=== PATIENT | female | born 1945 | race Caucasian/White ===

== ENCOUNTER 2019-10-07 23:45 | Inpatient (IN) | payer MEDICARE, BC, OTHER ==
[2019-10-08] MEDS ORDERED: Benzonatate 100 MG CAP ONE (01:05)
[2019-10-08] MEDS ORDERED: Acetaminophen 500 MG TAB ONE (02:39)
[2019-10-08] MEDS ORDERED: Azithromycin 500 MG in Sodium Chloride 0.9% 250 ML 250 ML IVPB SCH (04:15)
[2019-10-08 04:48] VITALS: BMI 30.1
[2019-10-08] MEDS ORDERED: Ondansetron PF 4 MG/2 ML Vial IVP PRN (05:44)
[2019-10-08] MEDS ORDERED: Promethazine HCl 12.5 MG in Sodium Chloride 0.9% 50 ML IVPB PRN (05:44)
[2019-10-08] MEDS ORDERED: hydrALAZINE 20 MG/ML VIAL SLOW IVP PRN (05:44)
[2019-10-08] MEDS ORDERED: HYDROcodone/Acetaminophen 5/325 mg Tablet PO PRN (05:44)
[2019-10-08] MEDS ORDERED: cloNIDine 0.1 MG TAB PO PRN (05:44)
[2019-10-08] MEDS ORDERED: Guaifenesin DM 100-10/5 ML UDCUP PO PRN (05:44)
[2019-10-08] MEDS ORDERED: Morphine 2 MG/ML VIAL SLOW IVP PRN (05:44)
[2019-10-08] MEDS ORDERED: Labetalol HCl 100 MG/20 ML VIAL SLOW IVP PRN (05:44)
[2019-10-08] MEDS ORDERED: Bisacodyl 10 MG SUPP PR PRN (05:45)
[2019-10-08] MEDS ORDERED: Bisacodyl 5 MG TAB PO PRN (05:45)
--- NOTE | 2019-10-08 05:55 | PDOC.HHP ---
Hospitalist HPI - History of Present Illness Shortness of breath History of Present Illness: Patient is a 74 year old female with PMH HTN, DM2, HLD, hearing loss who presents to ED from [place] for shortness of breath in setting of COVID 19 infection. Patient was diagnosed with COVID 19 on saturday, her friend who was an RN came to check on her, pulse oximiter was applied and O2 was low (79%) and patient was brought to ED, here she was noted to desaturate with minimal activity, even with purewich application she desaturated to 84% on high flow O2 , she improved to 93% when on O2 40% at 45 LPM however. Max temperature 102.7. Patient reports shortness of breath and a cough, had been taking azithromycin and dexamethasone at home. She had a CXR in [place] with infiltrate. No history of pulmonary disease. Denies chest pain. Patient to be admitted for further workup and care. Hospitalist ROS - Review of Systems Constitutional: reports: fever, chills, weakness, malaise ENT: denies: ear pain, ear discharge, nose pain, nose discharge, nose congestion , mouth pain, mouth swelling, throat pain, throat swelling, other Respiratory: reports: cough, shortness of breath. denies: dry, hemoptysis, SOB with excertion, pleuritic pain, sputum, wheezing, other Cardiovascular: denies: chest pain, palpitations, orthopnea, paroxysmal noc. dyspnea, edema, light headedness, other Gastrointestinal: denies: nausea, vomiting, abdominal pain, diarrhea, constipation, melena, hematochezia, other Genitourinary: denies: dysuria, frequency, incontinence, hematuria, retention, other Musculoskeletal: denies: neck pain, shoulder pain, arm pain, back pain, hand pain, leg pain, foot pain, other Skin: denies: rash, lesions, cliff, bruising, other Neurological: denies: weakness, numbness, incoordination, change in speech, confusion, seizures, other All other systems reviewed; all pertinent +/- noted in HPI/Subj - Medication Medications: amlodipine-benazepril Jacki Oct 08, 2019 01:14 NORA Bro Alicia capsule : Strength - 5 mg-40 mg : ORAL Patient Dose: once a day. budesonide inhalation SatOct 08, 2019 01:14 NORA Bro Alicia suspension for nebulization : Strength - 0.5 mg/2 mL : INHALATION Patient Dose: 2 times a day. cholecalciferol (vitamin D3) oral SatOct 08, 2019 01:15 NORA Bro Alicia capsule : Strength - 5,000 unit : ORAL Patient Dose: once a day. dexamethasone [facility] Oct 08, 2019 01:17 NORA Bro Alicia tablet : Strength - 4 mg : ORAL Patient Dose: Unknown.unknown schedule. hydroxychloroquine SatOct 08, 2019 01:18 NORA Bro Alicia tablet : Strength - 200 mg : ORAL Patient Dose: Unknown.unknown schedule. latanoprost SatOct 08, 2019 01:19 NORA Bro Alicia drops : Strength - 0.005 % : OPHTHALMIC (EYE) Patient Dose: once a day. lisinopril [facility] Oct 08, 2019 01:21 NORA Bro Alicia tablet : Strength - 40 mg : ORAL Patient Dose: once a day. metFORMIN [facility] Oct 08, 2019 01:21 NORA Bro Alicia tablet : Strength - 500 mg : ORAL Patient Dose: 2 times a day. metoprolol succinate [facility] Oct 08, 2019 01:22 NORA Bro Alicia tablet extended release 24 hr : Strength - 200 mg : ORAL Patient Dose: once a day. Centrum Silver tablet SatOct 08, 2019 01:24 NORA Bro Alicia tablet : ORAL Patient Dose: Unknown. Chelated Zinc [facility] Oct 08, 2019 01:24 NORA Bro Alicia tablet : Strength - 50 mg : ORAL Patient Dose: Unknown. venlafaxine Jacki Oct 08, 2019 01:25 NORA Bro Alicia tablet : Strength - 37.5 mg : ORAL Patient Dose: 2 times a day. Hospitalist History - Past Medical History Other Medical History: HTN, DM2, HLD - Past Surgical History Past Surgical History: reports: no pertinent history - Family History Family History: reports: no pertinent history - Social History Alcohol: reports: None Drugs: reports: none - Exam General Appearance: NAD, awake alert Eye: PERRL, anicteric sclera ENT: normocephalic atraumatic, no oropharyngeal lesions, moist mucosa Neck: supple, symmetric, no JVD, no thyromegaly, no lymphadenopathy, no carotid bruit Heart: RRR, no murmur, no gallops, no rubs, normal peripheral pulses Respiratory: CTAB, no wheezes, no rales, no ronchi, normal chest expansion, no tachypnea, normal percussion Gastrointestinal: soft, non-tender, non-distended, normal bowel sounds, no palpable masses, no hepatomegaly, no splenomegaly, no bruit Extremities: no cyanosis, no clubbing, no edema Skin: normal turgor, no lesions, no rashes Neurological: cranial nerve grossly intact, normal sensation to touch, no weakness, no focal deficits, no new deficit Musculoskeletal: normal tone, normal strength, no muscle wasting Psychiatric: normal affect, normal behavior, A&O x 3 Hospitalist Results - Labs Additional comment: VITAL SIGNS Jacki Oct 08, 2019 03:30 NORA Barc[facility] [place] BP: 172/92 (Lying) Pulse: 93 Resp: 25 Temp: 100.4 (Oral) Pain: 8 O2 sat: 91 Time: 10/08/2019 03:30. results reviewed as available Hospitalist H&P A/P - Plan Plan: Patient is a 74 year old female with PMH HTN, DM2, HLD, hearing loss who presents to ED from [place] for shortness of breath in setting of COVID 19 infection. # hypoxia in setting of covid 19 infection - had infiltrate at outside facility on imaging, now with likely viral pneumonia secondary to covid 19 - admit to IMCU - continue high flow nasal cannula - empiric azithromycin, ceftriaxone, decadron - follow up CXR and ordered labwork - consider pulmonary consult if condition worsens further DVT/GI ppx full code
[2019-10-08] MEDS ORDERED: cefTRIAXone\\ROCEPHIN 1 GM in Sodium Chloride 0.9% 100 ML IVPB SCH (06:00)
[2019-10-08] MEDS ORDERED: Dexamethasone 10 MG/ML VIAL SLOW IVP SCH (06:00)
[2019-10-08 06:27] LABS: #Lymphocytes 1.3 thou/uL (1.20-3.40); #Monocytes 0.5 thou/uL (0.11-0.59); #Neutrophils 6.3 thou/uL (1.40-6.50); %Basophils 0.1 % (0.0-1.0); %Lymphocytes 16.3 % (21.0-51.0); %Monocytes 6.2 % (0.0-10.0); %Neutrophils 77.4 % (42.0-75.0); Hemoglobin 14.5 g/dL (12.0-16.0); Mean Corpuscular HGB CONC 31.6 g/dL (32.0-36.0); Mean Corpuscular Volume 94.8 fL (78.0-98.0); Mean Platelet Volume 6.8 fL (7.4-10.4); Platelet Count 229 thou/uL (130-400); RBC Distribution Width 12.2 % (11.5-14.5); Red Blood Cell (RBC) Count 4.82 mill/uL (4.20-5.40); White Blood Cell (WBC) Count 8.1 thou/uL (4.8-10.8)
[2019-10-08 06:44] LABS: Anion Gap 13 mmol/L (10-20); BUN (Urea Nitrogen) 13 mg/dL (9.8-20.1); Calc. Creatinine Clearance 86 mL/min (70-130); Calcium 8.6 mg/dL (7.8-10.44); Carbon Dioxide 24 mmol/L (23-31); Chloride 105 mmol/L (98-107); Estimated GFR-MDRD 81; Glucose 103 mg/dL (83-110); Potassium 4.1 mmol/L (3.5-5.1); Sodium 138 mmol/L (136-145)
--- NOTE | 2019-10-08 07:43 | RAD ---
EXAM: Single view of the chest HISTORY: Covid pneumonia with hypoxia COMPARISON: 10/07/2019 FINDINGS: Single view of the chest shows a normal sized cardiomediastinal silhouette. There is worsen ing of the subtle diffuse multifocal infiltrates in the lungs. The bones are unremarkable IMPRESSION: Multifocal infiltrates
[2019-10-08] MEDS: Famotidine 20 MG TAB PO SCH ×2 (08:55→20:19)
[2019-10-08] MEDS: Acetaminophen 325 MG TAB PO PRN (08:55)
[2019-10-08] MEDS ORDERED: Enoxaparin Sodium 40 MG/0.4 ML SYRINGE SC SCH ×2 (09:00→21:00)
[2019-10-08] MEDS ORDERED: Prevnar 13-Val Conj/PF 0.5 ML SYRINGE IM ONE (09:00)
[2019-10-08] MEDS ORDERED: Enoxaparin Sodium 30 MG/0.3 ML SYRINGE SC SCH (10:45)
--- NOTE | 2019-10-08 11:30 | CON ---
DATE OF CONSULTATION: 10/08/2019 This is 75 minutes of time, of that time, greater than 50% was spent with the patient and/or the patient's unit in the hospital. REASON FOR CONSULTATION: COVID-19 pneumonia. HISTORY OF PRESENT ILLNESS: Ms. Rojas is a 74-year-old female, who presented from the [place] [facility] with COVID-19 pneumonia. She says she has been sick for about 10 days. She began desaturating yesterday. Apparently, she also had a temperature of 102.7. She works for [employer] in [place] and has been taking azithromycin and dexamethasone at home. PAST MEDICAL HISTORY: 1. Type 2 diabetes mellitus. 2. Hyperlipidemia. 3. Hearing loss. PAST SURGICAL HISTORY: None. FAMILY MEDICAL HISTORY: Unremarkable. SOCIAL HISTORY: Nonsmoker. Does not consume alcohol. Does not use illicit drugs. ALLERGIES: NONE. MEDICATIONS: Prior to admission; 1. Metformin 500 mg b.i.d. 2. Amlodipine/benazepril 5 mg/40 mg daily. 3. Budesonide nebs b.i.d. 4. Dexamethasone 4 mg daily. 5. Hydroxychloroquine 200 mg daily. 6. Latanoprost eye drops once daily. 7. Lisinopril 40 mg daily. 8. Metoprolol extended release 200 mg once daily. 9. Centrum once daily. 10. Chelated zinc 50 mg daily. 11. Venlafaxine 37.5 mg b.i.d. REVIEW OF SYSTEMS: Remarkable for fever and shortness of breath, otherwise negative. PHYSICAL EXAMINATION: VITAL SIGNS: Temperature 99.5, has been high as 101.1; pulse 85; respirations high at 20; blood pressure 147/69; and O2 saturations in the mid 90s on 6 L nasal cannula. GENERAL: She is pleasant, alert, in no distress. HEENT: Unremarkable. NECK: No adenopathy or JVD. LUNGS: Diffuse inspiratory crackles bilaterally, best heard posteriorly. CARDIAC: S1 and S2. Regular. ABDOMEN: Soft. EXTREMITIES: No edema. LABORATORY DATA: White blood cell count 8.1, hematocrit 45.7, and platelet count 229. Glucose 103, BUN 13, creatinine 0.7, sodium 138, and potassium 4.1. IMAGING DATA: Chest x-ray shows diffuse bilateral infiltrates. ASSESSMENT: COVID-19 pneumonia with comorbid factors including hypertension, hyperlipidemia, and diabetes mellitus. Right now, her symptoms seem to be mitigated by the oxygen and dexamethasone. Likely her chronic medical problems are under control. PLAN: 1. I agree with the current treatment with the exception that I would discontinue the Rocephin and perhaps even azithromycin. I would increase her anticoagulation. Continue steroids. Add Pulmicort. Watch oxygen level closely. 2. I would restart her routine home medications with the exception of beta-vicky as many of these COVID patients develop refractory bradycardia. Job ID: [id number]
[2019-10-08] MEDS: metFORMIN 500 MG TAB PO SCH (16:12)
[2019-10-08] MEDS: Budesonide 0.5 MG/2 ML NEB INH SCH (19:01)
[2019-10-08] MEDS: Latanoprost 0.005% Ophth Soln 2.5 ml Bottle EA EYE SCH (20:46)
[2019-10-08] MEDS: Enoxaparin Sodium 60 MG/0.6 ML SYRINGE SC SCH (20:46)
[2019-10-09 03:53] LABS: #Lymphocytes 1.9 thou/uL (1.20-3.40); #Monocytes 0.6 thou/uL (0.11-0.59); #Neutrophils 7.1 thou/uL (1.40-6.50); %Basophils 0.1 % (0.0-1.0); %Eosinophils 0.2 % (0.0-10.0); %Lymphocytes 19.5 % (21.0-51.0); %Neutrophils 74.3 % (42.0-75.0); Hemoglobin 14.6 g/dL (12.0-16.0); Mean Corpuscular HGB CONC 32.8 g/dL (32.0-36.0); Mean Corpuscular Hemoglobin 30.9 pg (27.0-31.0); Mean Corpuscular Volume 94.4 fL (78.0-98.0); Mean Platelet Volume 6.7 fL (7.4-10.4); Platelet Count 246 thou/uL (130-400); RBC Distribution Width 12.2 % (11.5-14.5); Red Blood Cell (RBC) Count 4.72 mill/uL (4.20-5.40); White Blood Cell (WBC) Count 9.6 thou/uL (4.8-10.8)
[2019-10-09 04:13] LABS: Anion Gap 14 mmol/L (10-20); BUN (Urea Nitrogen) 13 mg/dL (9.8-20.1); Calc. Creatinine Clearance 94 mL/min (70-130); Calcium 8.8 mg/dL (7.8-10.44); Carbon Dioxide 25 mmol/L (23-31); Chloride 105 mmol/L (98-107); Estimated GFR-MDRD 89; Glucose 115 mg/dL (83-110); Magnesium 1.8 mg/dL (1.6-2.6); Sodium 140 mmol/L (136-145)
[2019-10-09] MEDS: Azithromycin 500 MG in Sodium Chloride 0.9% 250 ML 250 ML IVPB SCH (04:52)
[2019-10-09] MEDS: Dexamethasone 4 mg/ml Vial SLOW IVP SCH (05:27)
[2019-10-09] MEDS: Acetaminophen 325 MG TAB PO PRN ×2 (05:27→17:31)
[2019-10-09] MEDS ORDERED: Venlafaxine XR 37.5 MG CAP PO SCH (09:00)
[2019-10-09] MEDS: Enoxaparin Sodium 60 MG/0.6 ML SYRINGE SC SCH ×2 (09:09→20:25)
[2019-10-09] MEDS: Zinc Sulfate 220 MG CAP PO SCH (09:10)
[2019-10-09] MEDS: Lisinopril 20 MG TAB PO SCH (09:10)
[2019-10-09] MEDS: Famotidine 20 MG TAB PO SCH ×2 (09:10→20:25)
[2019-10-09] MEDS: Multivitamin W/ Minerals 1 TAB PO SCH (09:10)
[2019-10-09] MEDS: metFORMIN 500 MG TAB PO SCH ×2 (09:10→17:31)
[2019-10-09] MEDS: Amlodipine 5 mg/Benazepril 20 mg CAP PO SCH (09:11)
[2019-10-09] MEDS: Budesonide 0.5 MG/2 ML NEB INH SCH ×2 (10:17→19:30)
--- NOTE | 2019-10-09 10:27 | PRG ---
DATE OF SERVICE: 10/09/2019 SUBJECTIVE: The patient remains in the IMCU on high-flow nasal cannula. OBJECTIVE: VITAL SIGNS: Temperature 100.1, pulse 86, blood pressure 137/78, O2 saturation 94%. 24-hour intake 1500, output 1101. HEENT: Unremarkable. NECK: No adenopathy or JVD. LUNGS: Inspiratory crackles. CARDIAC: S1 and S2. Regular. ABDOMEN: Soft. EXTREMITIES: No edema. LABORATORY DATA: White blood cell count 9.6, hematocrit 44, platelet count 246. Sodium 140, potassium 4, BUN 13, creatinine 0.6, and glucose 115. ASSESSMENT: COVID-19 pneumonia with acute hypoxic respiratory failure. PLAN: Continue anticoagulation. Wean oxygen as tolerated. Continue steroids. Job ID: [id number]
[2019-10-09] MEDS: ALPRAZolam 0.25 MG TAB PO PRN (14:25)
--- NOTE | 2019-10-09 20:13 | PDOC.HOSPP ---
- Subjective Encounter Date: 10/09/19 Encounter Time: 20:09 Subjective: Pt seen for followup re; acute hypoxic respiratory failure. SOBOE+, anxiety+ - Objective Vital Signs & Weight: Vital Signs (12 hours) Temp 10/09/19 16:00 99.7 F H 10/09/19 12:00 99.4 F Weight Weight 170 lb 3.2 oz Most Recent Monitor Data Heart Rate from ECG 89 NIBP 133/78 NIBP BP-Mean 96 Respiration from ECG 25 SpO2 96 I&O: 10/08/19 10/09/19 10/10/19 06:59 06:59 06:59 Intake Total 400 1500 1150 Output Total 200 1101 550 Balance 200 399 600 Result Diagrams: 10/09/19 03:43 10/09/19 03:43 Additional Labs: Labs and MARs reviewed by me EKG Reviewed by me: Yes (Tele: NSR) Hospitalist ROS - Review of Systems Respiratory: reports: cough, dry, SOB with excertion. denies: shortness of breath, hemoptysis, pleuritic pain, sputum, wheezing Cardiovascular: denies: chest pain, palpitations, orthopnea, paroxysmal noc. dyspnea, edema, light headedness - Medication Medications: Active Medications Generic Name Dose Route Start Last Admin Trade Name Freq PRN Reason Stop Dose Admin Acetaminophen 650 mg 10/08/19 05:45 10/09/19 17:31 Tylenol PO 650 mg Q4H PRN Administration Headache/Fever/Mild Pain (1-3) Alprazolam 0.25 mg 10/09/19 12:42 10/09/19 14:25 Xanax PO 0.25 mg BIDPRN PRN Administration Anxiety Amlodipine/Benazepril HCl 1 cap 10/09/19 09:00 10/09/19 09:11 Lotrel 5/20 PO 1 cap DAILY KAYLIE Administration Budesonide 0.5 mg 10/08/19 18:30 10/09/19 10:17 Pulmicort Neb Solution INH Not Given BID-RT KAYLIE Dexamethasone 6 mg 10/09/19 06:00 10/09/19 05:27 Decadron SLOW IVP 6 mg 0600 KAYLIE Administration Enoxaparin Sodium 60 mg 10/08/19 21:00 10/09/19 09:09 Lovenox SC 60 mg 0900,2100 KAYLIE Administration Famotidine 20 mg 10/08/19 09:00 10/09/19 09:10 Pepcid PO 20 mg BID KAYLIE Administration Azithromycin 500 mg/ Sodium 250 mls @ 250 mls/hr 10/09/19 04:00 10/09/19 04: 52 Chloride IVPB 250 mls 0400 KAYLIE Administration Iron/Minerals/Multivitamins 1 tab 10/09/19 09:00 10/09/19 09:10 Theragran M PO 1 tab DAILY KAYLIE Administration Latanoprost 1 drop 10/08/19 21:00 10/08/19 20:46 Xalatan 0.005% Ophth Soln EA EYE 1 drop HS KAYLIE Administration Lisinopril 40 mg 10/09/19 09:00 10/09/19 09:10 Zestril PO 40 mg DAILY KAYLIE Administration Metformin HCl 500 mg 10/08/19 17:00 10/09/19 17:31 Glucophage PO 500 mg BID-WM KAYLIE Administration Sodium Chloride 10 ml 10/08/19 09:00 10/09/19 09:11 Flush - Normal Saline IVF 10 ml Q12HR KAYLIE Administration Sodium Chloride 10 ml 10/08/19 06:34 10/09/19 05:27 Flush - Normal Saline IVF 10 ml PRN PRN Administration Saline Flush Venlafaxine HCl 75 mg 10/08/19 21:00 10/09/19 09:10 Effexor PO 75 mg BID KAYLIE Administration Zinc Sulfate 220 mg 10/09/19 09:00 10/09/19 09:10 Zinc Sulfate PO 220 mg DAILY KAYLIE Administration - Exam General - other findings: Obese Eye: anicteric sclera ENT: moist mucosa Neck: supple Heart: RRR Respiratory: CTAB Gastrointestinal: soft, non-tender Skin: no rashes Psychiatric - other findings: anxious Hosp A/P - Plan # acute hypoxic respiratory failure #viral pneumonia secondary to covid 19 #HTN #DM2 - Pt is on high flow nasal cannula - Continue empiric azithromycin, and decadron - appreciate pulmonology input - HTN controlled - start accuchecks and insulin sliding scale
[2019-10-09] MEDS ORDERED: Dextrose 50% Abboject 50 ML SYRINGE SLOW IVP PRN (20:14)
[2019-10-09] MEDS ORDERED: Dextrose 5% in Water 1,000 ML IV PRN (20:14)
[2019-10-09] MEDS: Latanoprost 0.005% Ophth Soln 2.5 ml Bottle EA EYE SCH (20:25)
[2019-10-10] MEDS: Acetaminophen 325 MG TAB PO PRN ×2 (01:20→05:49)
[2019-10-10 03:34] LABS: #Lymphocytes 1.7 thou/uL (1.20-3.40); #Monocytes 0.6 thou/uL (0.11-0.59); #Neutrophils 7.4 thou/uL (1.40-6.50); %Basophils 0.2 % (0.0-1.0); %Eosinophils 0.2 % (0.0-10.0); %Lymphocytes 17.8 % (21.0-51.0); %Monocytes 6.2 % (0.0-10.0); %Neutrophils 75.5 % (42.0-75.0); Hemoglobin 14.7 g/dL (12.0-16.0); Mean Corpuscular HGB CONC 32.7 g/dL (32.0-36.0); Mean Corpuscular Volume 94.8 fL (78.0-98.0); Mean Platelet Volume 6.8 fL (7.4-10.4); Platelet Count 259 thou/uL (130-400); RBC Distribution Width 12.2 % (11.5-14.5); Red Blood Cell (RBC) Count 4.75 mill/uL (4.20-5.40); White Blood Cell (WBC) Count 9.8 thou/uL (4.8-10.8)
[2019-10-10 03:57] LABS: Anion Gap 12 mmol/L (10-20); BUN (Urea Nitrogen) 13 mg/dL (9.8-20.1); Calc. Creatinine Clearance 98 mL/min (70-130); Calcium 8.7 mg/dL (7.8-10.44); Carbon Dioxide 25 mmol/L (23-31); Chloride 104 mmol/L (98-107); Estimated GFR-MDRD Greater than 90; Glucose 103 mg/dL (83-110); Potassium 4.1 mmol/L (3.5-5.1); Sodium 137 mmol/L (136-145)
[2019-10-10] MEDS: Azithromycin 500 MG in Sodium Chloride 0.9% 250 ML 250 ML IVPB SCH (04:13)
[2019-10-10] MEDS: Dexamethasone 4 mg/ml Vial SLOW IVP SCH (05:47)
[2019-10-10] MEDS: Budesonide 0.5 MG/2 ML NEB INH SCH ×2 (08:22→21:27)
[2019-10-10] MEDS: Enoxaparin Sodium 60 MG/0.6 ML SYRINGE SC SCH ×2 (08:22→21:26)
[2019-10-10] MEDS: Multivitamin W/ Minerals 1 TAB PO SCH (08:23)
[2019-10-10] MEDS: Zinc Sulfate 220 MG CAP PO SCH (08:23)
[2019-10-10] MEDS: Amlodipine 5 mg/Benazepril 20 mg CAP PO SCH (08:23)
[2019-10-10] MEDS: Lisinopril 20 MG TAB PO SCH (08:23)
[2019-10-10] MEDS: Famotidine 20 MG TAB PO SCH ×2 (08:23→21:26)
[2019-10-10] MEDS: metFORMIN 500 MG TAB PO SCH ×2 (08:23→17:01)
[2019-10-10] MEDS: ALPRAZolam 0.25 MG TAB PO PRN (09:53)
--- NOTE | 2019-10-10 14:34 | PRG ---
DATE OF SERVICE: 10/10/2019 SUBJECTIVE: Fidelia Rojas is sitting up in a chair at the bedside. She says she is feeling much better than she felt yesterday. She is still on high-flow oxygen. Sats are in the low 90s. OBJECTIVE: VITAL SIGNS: Blood pressure 122/64, respiratory rates in the teens. LUNGS: Essentially unchanged. HEART: Essentially unchanged. ABDOMEN: Essentially unchanged. LABORATORY DATA: White count 9.8, hemoglobin 14.7, platelets 259. Electrolytes are normal. IMPRESSION: COVID pneumonia, clinically improving. PLAN: Continue current supportive care. She is very sweet and appreciative of all the care that is being given to her. Job ID: [id number]
--- NOTE | 2019-10-10 19:27 | PDOC.HOSPP ---
- Subjective Encounter Date: 10/10/19 Encounter Time: 15:00 Subjective: Patient was seen in follow-up for acute respiratory failure, hypoxic. She reports feeling better. - Objective Vital Signs & Weight: Vital Signs (12 hours) Temp Pulse Ox 10/10/19 16:00 99.5 F 10/10/19 14:19 90 L 10/10/19 12:00 99.4 F 10/10/19 08:00 99.1 F Weight Weight 170 lb 3.2 oz Most Recent Monitor Data Heart Rate from ECG 86 NIBP 127/63 NIBP BP-Mean 84 Respiration from ECG 24 SpO2 90 I&O: 10/09/19 10/10/19 10/11/19 06:59 06:59 06:59 Intake Total 1500 1610 770 Output Total 0365 230 6599 Balance 399 660 -380 Result Diagrams: 10/10/19 03:13 10/10/19 03:13 Additional Labs: Accuchecks 10/10/19 10/10/19 11:56 05:57 POC Glucose 267 H 95 Labs and MAR were reviewed by me. EKG Reviewed by me: Yes (Telemetry: Normal sinus rhythm) Hospitalist ROS - Review of Systems Respiratory: reports: cough, dry, SOB with excertion. denies: shortness of breath, hemoptysis, pleuritic pain, sputum, wheezing Cardiovascular: denies: chest pain, palpitations, orthopnea, paroxysmal noc. dyspnea, edema, light headedness - Medication Medications: Active Medications Generic Name Dose Route Start Last Admin Trade Name Freq PRN Reason Stop Dose Admin Acetaminophen 650 mg 10/08/19 05:45 10/10/19 05:49 Tylenol PO 650 mg Q4H PRN Administration Headache/Fever/Mild Pain (1-3) Alprazolam 0.25 mg 10/09/19 12:42 10/10/19 09:53 Xanax PO 0.25 mg BIDPRN PRN Administration Anxiety Amlodipine/Benazepril HCl 1 cap 10/09/19 09:00 10/10/19 08:23 Lotrel 07/28 PO 1 cap DAILY KAYLIE Administration Budesonide 0.5 mg 10/08/19 18:30 10/10/19 08:22 Pulmicort Neb Solution INH Not Given BID-RT KAYLIE Dexamethasone 6 mg 10/09/19 06:00 10/10/19 05:47 Decadron SLOW IVP 6 mg 0600 KAYLIE Administration Enoxaparin Sodium 60 mg 10/08/19 21:00 10/10/19 08:22 Lovenox SC 60 mg 0900,2100 KAYLIE Administration Famotidine 20 mg 10/08/19 09:00 10/10/19 08:23 Pepcid PO 20 mg BID KAYLIE Administration Azithromycin 500 mg/ Sodium 250 mls @ 250 mls/hr 10/09/19 04:00 10/10/19 04: 13 Chloride IVPB 250 mls 0400 KAYLIE Administration Iron/Minerals/Multivitamins 1 tab 10/09/19 09:00 10/10/19 08:23 Theragran M PO 1 tab DAILY KAYLIE Administration Latanoprost 1 drop 10/08/19 21:00 10/09/19 20:25 Xalatan 0.005% Ophth Soln EA EYE 1 drop HS KAYLIE Administration Lisinopril 40 mg 10/09/19 09:00 10/10/19 08:23 Zestril PO 40 mg DAILY KAYLIE Administration Metformin HCl 500 mg 10/08/19 17:00 10/10/19 17:01 Glucophage PO 500 mg BID-WM KAYLIE Administration Sodium Chloride 10 ml 10/08/19 09:00 10/10/19 08:23 Flush - Normal Saline IVF 10 ml Q12HR KAYLIE Administration Sodium Chloride 10 ml 10/08/19 06:34 10/09/19 05:27 Flush - Normal Saline IVF 10 ml PRN PRN Administration Saline Flush Venlafaxine HCl 75 mg 10/08/19 21:00 10/10/19 08:23 Effexor PO 75 mg BID KAYLIE Administration Zinc Sulfate 220 mg 10/09/19 09:00 10/10/19 08:23 Zinc Sulfate PO 220 mg DAILY KAYLIE Administration - Exam General - other findings: Obesity Eye: anicteric sclera ENT: normocephalic atraumatic Neck: supple, no lymphadenopathy Heart: RRR Respiratory: CTAB Gastrointestinal: soft, non-tender Skin: no rashes Neurological - other findings: Hard of hearing Musculoskeletal: no muscle wasting Psychiatric: normal affect, normal behavior Hosp A/P - Plan # acute hypoxic respiratory failure #viral pneumonia secondary to covid 19 #HTN #DM2 - Pt is on high flow nasal cannula, oxygen requirements increased last night. -Patient is on empiric azithromycin, and decadron - pulmonology service following - HTN controlled -Diabetes mellitus controlled -Patient's daughter was updated over the telephone
[2019-10-10] MEDS: Latanoprost 0.005% Ophth Soln 2.5 ml Bottle EA EYE SCH (21:27)
[2019-10-10] MEDS ORDERED: ALPRAZolam 0.25 MG TAB PO PRN (23:50)
[2019-10-11 00:25] LABS: Actual Bicarbonate (HCO3a) 23.9 mEq/L (22-28); Base Excess (BEa) -0.4 mEq/L (-2.0 to +3.0); CO2 Tension 38.3 mmHg (35.0-45.0); Calcium, Ionized (arterial) 1.16 mmol/L (1.12-1.30); Carboxyhemoglobin (COHb) 0.4 gm% (0.0-3.0); Hemoglobin (Hb) 15.5 g/dL (12.0-16.0); Potassium - ABG Lab 4.01 mmol/L (3.70-5.30); pH, Arterial 7.41 (7.35-7.45)
[2019-10-11] MEDS: Morphine 2 MG/ML VIAL SLOW IVP PRN ×8 (00:47→20:25)
[2019-10-11] MEDS: Azithromycin 500 MG in Sodium Chloride 0.9% 250 ML 250 ML IVPB SCH (03:54)
[2019-10-11 03:58] LABS: #Eosinphils 0.1 thou/uL (0.0-0.7); #Lymphocytes 2.1 thou/uL (1.20-3.40); #Monocytes 0.7 thou/uL (0.11-0.59); #Neutrophils 10.2 thou/uL (1.40-6.50); %Eosinophils 0.6 % (0.0-10.0); %Lymphocytes 16.1 % (21.0-51.0); %Monocytes 5.5 % (0.0-10.0); %Neutrophils 77.7 % (42.0-75.0); Hemoglobin 14.5 g/dL (12.0-16.0); Mean Corpuscular HGB CONC 32.9 g/dL (32.0-36.0); Mean Corpuscular Hemoglobin 31.3 pg (27.0-31.0); Mean Platelet Volume 6.5 fL (7.4-10.4); Platelet Count 304 thou/uL (130-400); RBC Distribution Width 12.1 % (11.5-14.5); Red Blood Cell (RBC) Count 4.64 mill/uL (4.20-5.40); White Blood Cell (WBC) Count 13.1 thou/uL (4.8-10.8)
[2019-10-11 04:21] LABS: Anion Gap 13 mmol/L (10-20); BUN (Urea Nitrogen) 17 mg/dL (9.8-20.1); Calc. Creatinine Clearance 81 mL/min (70-130); Calcium 8.8 mg/dL (7.8-10.44); Carbon Dioxide 27 mmol/L (23-31); Chloride 101 mmol/L (98-107); Estimated GFR-MDRD 76; Glucose 97 mg/dL (83-110); Magnesium 2.1 mg/dL (1.6-2.6); Potassium 4.5 mmol/L (3.5-5.1); Sodium 136 mmol/L (136-145)
[2019-10-11] MEDS: Dexamethasone 4 mg/ml Vial SLOW IVP SCH (06:07)
[2019-10-11] MEDS: ALPRAZolam 0.25 MG TAB PO PRN ×3 (07:02→20:25)
[2019-10-11] MEDS: Budesonide 0.5 MG/2 ML NEB INH SCH ×2 (07:35→18:58)
[2019-10-11] MEDS: metFORMIN 500 MG TAB PO SCH ×2 (07:35→16:37)
--- NOTE | 2019-10-11 08:41 | PDOC.BPN ---
- Brief Progress Note No physical encounter to avoid exposure. Per nurse, patient has been taking Bipap off multiple times overnight despite receiving multiple sedatives and has been more short of breath and tachypnic. PCCM aware. HTN and T2DM well controlled.
[2019-10-11 09:10] LABS: Base Excess (BEa) 0.6 mEq/L (-2.0 to +3.0); CO2 Tension 50.2 mmHg (35.0-45.0); Calcium, Ionized (arterial) 1.14 mmol/L (1.12-1.30); Carboxyhemoglobin (COHb) 0.6 gm% (0.0-3.0); Hemoglobin (Hb) 14.9 g/dL (12.0-16.0); Potassium - ABG Lab 4.52 mmol/L (3.70-5.30); pH, Arterial 7.35 (7.35-7.45)
[2019-10-11 09:34] LABS: O2 Tension (PaO2), arterial 55.4 mmHg (> 70.0); Puncture Site RR
[2019-10-11] MEDS: Amlodipine 5 mg/Benazepril 20 mg CAP PO SCH (12:29)
[2019-10-11] MEDS: Lisinopril 20 MG TAB PO SCH (12:30)
[2019-10-11 12:31] LABS: Actual Bicarbonate (HCO3a) 28.7 mEq/L (22-28); Base Excess (BEa) 2.2 mEq/L (-2.0 to +3.0); CO2 Tension 51.8 mmHg (35.0-45.0); Calcium, Ionized (arterial) 1.13 mmol/L (1.12-1.30); Carboxyhemoglobin (COHb) 0.8 gm% (0.0-3.0); Hemoglobin (Hb) 14.7 g/dL (12.0-16.0); Potassium - ABG Lab 4.74 mmol/L (3.70-5.30); pH, Arterial 7.36 (7.35-7.45)
[2019-10-11 13:04] LABS: O2 Tension (PaO2), arterial 55.1 mmHg (> 70.0); Puncture Site LR
[2019-10-11] MEDS: Enoxaparin Sodium 60 MG/0.6 ML SYRINGE SC SCH ×2 (13:37→20:25)
[2019-10-11] MEDS: Multivitamin W/ Minerals 1 TAB PO SCH (13:37)
[2019-10-11] MEDS: Zinc Sulfate 220 MG CAP PO SCH (13:37)
[2019-10-11] MEDS: Famotidine 20 MG TAB PO SCH ×2 (13:37→20:25)
[2019-10-11 18:20] LABS: O2 Tension (PaO2), arterial 44.6 mmHg (> 70.0)
[2019-10-11 18:21] LABS: ALV-art Gradient 577.745 (0-20); Puncture Site RRA
--- NOTE | 2019-10-11 19:35 | PRG ---
DATE OF SERVICE: 10/11/2019 SUBJECTIVE: Fidelia Rojas continues to have high oxygen requirements. She was placed on BiPAP last night because of hypoxemia. The pressures were adjusted on her BiPAP to increase her tidal volumes, and she is much more comfortable today. Hopefully, . Hemodynamics have been stable otherwise. There is no clear indication for intubation at this point. Blood gas right after lunch; pH 7.36, CO2 of 51, pO2 of 55. CBC, essentially unchanged. We will check inflammatory markers in the morning. Job ID: [id number]
[2019-10-11] MEDS: Latanoprost 0.005% Ophth Soln 2.5 ml Bottle EA EYE SCH (20:25)
[2019-10-12] MEDS: Morphine 2 MG/ML VIAL SLOW IVP PRN ×3 (03:15→14:29)
[2019-10-12] MEDS: Azithromycin 500 MG in Sodium Chloride 0.9% 250 ML 250 ML IVPB SCH (04:52)
[2019-10-12] MEDS: Dexamethasone 4 mg/ml Vial SLOW IVP SCH (05:30)
[2019-10-12] MEDS: ALPRAZolam 0.25 MG TAB PO PRN ×3 (05:31→20:19)
[2019-10-12] MEDS: Acetaminophen 325 MG TAB PO PRN (05:48)
--- NOTE | 2019-10-12 08:33 | PDOC.HOSPP ---
- Subjective Encounter Date: 10/12/19 Encounter Time: 07:00 Subjective: no overnight events. This morning, unaware of the diagnosis of COVID pneumonia so extensively educated to facilitate adherence. FIO2 reduced, breathing unchanged. - Objective Vital Signs & Weight: Vital Signs (12 hours) Temp Pulse Resp Pulse Ox 10/12/19 05:31 100.1 F H 10/12/19 04:00 99.0 F 10/12/19 02:45 81 31 H 93 L 10/12/19 00:07 97.9 F Weight Weight 170 lb 3.2 oz Most Recent Monitor Data Heart Rate from ECG 90 NIBP 150/67 NIBP BP-Mean 94 Respiration from ECG 36 SpO2 87 I&O: 10/11/19 10/12/19 10/13/19 06:59 06:59 06:59 Intake Total 1260 950 Output Total 1450 550 Balance -190 400 Result Diagrams: 10/11/19 03:36 10/11/19 03:36 Additional Labs: Accuchecks 10/12/19 10/11/19 10/11/19 05:41 18:31 11:32 POC Glucose 89 128 H 203 H Hospitalist ROS - Review of Systems Constitutional: denies: chills, sweats Respiratory: reports: shortness of breath. denies: cough, dry, pleuritic pain Cardiovascular: denies: chest pain, palpitations, orthopnea Gastrointestinal: denies: nausea, vomiting, abdominal pain - Medication Medications: Active Medications Generic Name Dose Route Start Last Admin Trade Name Freq PRN Reason Stop Dose Admin Acetaminophen 650 mg 10/08/19 05:45 10/12/19 05:48 Tylenol PO 650 mg Q4H PRN Administration Headache/Fever/Mild Pain (1-3) Alprazolam 0.25 mg 10/11/19 00:41 10/12/19 05:31 Xanax PO 0.25 mg QIDPRN PRN Administration Anxiety Amlodipine/Benazepril HCl 1 cap 10/09/19 09:00 10/11/19 12:29 Lotrel 07/28 PO Not Given DAILY KAYLIE Budesonide 0.5 mg 10/08/19 18:30 10/11/19 18:58 Pulmicort Neb Solution INH Not Given BID-RT KAYLIE Dexamethasone 6 mg 10/09/19 06:00 10/12/19 05:30 Decadron SLOW IVP 6 mg 0600 KAYLIE Administration Enoxaparin Sodium 60 mg 10/08/19 21:00 10/11/19 20:25 Lovenox SC 60 mg 0900,2100 KAYLIE Administration Famotidine 20 mg 10/08/19 09:00 10/11/19 20:25 Pepcid PO 20 mg BID KAYLIE Administration Azithromycin 500 mg/ Sodium 250 mls @ 250 mls/hr 10/09/19 04:00 10/12/19 04: 52 Chloride IVPB 250 mls 0400 KAYLIE Administration Iron/Minerals/Multivitamins 1 tab 10/09/19 09:00 10/11/19 13:37 Theragran M PO 1 tab DAILY [facility] Administration Latanoprost 1 drop 10/08/19 21:00 10/11/19 20:25 Xalatan 0.005% Ophth Soln EA EYE 1 drop HS KAYLIE Administration Lisinopril 40 mg 10/09/19 09:00 10/11/19 12:30 Zestril PO Not Given DAILY [facility] Metformin HCl 500 mg 10/08/19 17:00 10/11/19 16:37 Glucophage PO Not Given BID-[facility] Morphine Sulfate 2 mg 10/11/19 00:40 10/12/19 03:15 Morphine SLOW IVP 2 mg Q1H PRN Administration Pain Sodium Chloride 10 ml 10/08/19 09:00 10/11/19 20:25 Flush - Normal Saline IVF 10 ml Q12HR KAYLIE Administration Sodium Chloride 10 ml 10/08/19 06:34 10/09/19 05:27 Flush - Normal Saline IVF 10 ml PRN PRN Administration Saline Flush Venlafaxine HCl 75 mg 10/08/19 21:00 10/11/19 20:24 Effexor PO 75 mg BID KAYLIE Administration Zinc Sulfate 220 mg 10/09/19 09:00 10/11/19 13:37 Zinc Sulfate PO 220 mg DAILY KAYLIE Administration - Exam General Appearance: NAD, awake alert Heart: RRR, no murmur, no gallops, no rubs Respiratory: CTAB, no wheezes, no rales, no ronchi Respiratory - other findings: mild diffuse rhonchi, tachypnic Gastrointestinal: soft, non-tender, non-distended, normal bowel sounds Extremities: no edema Psychiatric: normal affect, normal behavior, A&O x 3 Hosp A/P - Plan #covid pneumonia on dexa, bipap elevated inflammatory markers defer remdesivir, IL-6, plasma to PCCM #HTN currently better control patient currently on two different ACEIs; defer to PCCM #T2DM well controlled; continue metformin with mild sliding Full code
[2019-10-12] MEDS: Enoxaparin Sodium 60 MG/0.6 ML SYRINGE SC SCH ×2 (09:43→20:19)
[2019-10-12] MEDS: Multivitamin W/ Minerals 1 TAB PO SCH (09:44)
[2019-10-12] MEDS: Lisinopril 20 MG TAB PO SCH (09:44)
[2019-10-12] MEDS: metFORMIN 500 MG TAB PO SCH ×2 (09:44→17:44)
[2019-10-12] MEDS: Famotidine 20 MG TAB PO SCH ×2 (09:44→20:19)
[2019-10-12] MEDS: Zinc Sulfate 220 MG CAP PO SCH (09:45)
[2019-10-12] MEDS: Budesonide 0.5 MG/2 ML NEB INH SCH (09:45)
[2019-10-12] MEDS: Amlodipine 5 mg/Benazepril 20 mg CAP PO SCH (09:45)
--- NOTE | 2019-10-12 14:43 | PRG ---
DATE OF SERVICE: 10/12/2019 SUBJECTIVE: Ms. Rojas is on BiPAP. She denies being short of breath. OBJECTIVE: VITAL SIGNS: Blood pressure heart rate is 86, respiratory rates in the 20s. LUNGS: Unchanged. HEART: Unchanged. ABDOMEN: Unchanged. LABORATORY DATA: Glucose is in the 89 to 203 range since yesterday morning. IMPRESSION: COVID pneumonia with respiratory failure. We will try to wean her pressure on her BiPAP today and get her back to high-flow if possible. Job ID: [id number]
[2019-10-12] MEDS: Mometasone 100 MCG/PUFF (1 INHALER) INH SCH (17:43)
[2019-10-12] MEDS: Latanoprost 0.005% Ophth Soln 2.5 ml Bottle EA EYE SCH (20:19)
[2019-10-13] MEDS: Azithromycin 500 MG in Sodium Chloride 0.9% 250 ML 250 ML IVPB SCH (03:08)
[2019-10-13] MEDS: Mometasone 100 MCG/PUFF (1 INHALER) INH SCH (06:16)
[2019-10-13] MEDS: Dexamethasone 4 mg/ml Vial SLOW IVP SCH (06:16)
[2019-10-13] MEDS: ALPRAZolam 0.25 MG TAB PO PRN ×2 (06:23→20:40)
[2019-10-13] MEDS: Zinc Sulfate 220 MG CAP PO SCH (09:04)
[2019-10-13] MEDS: Enoxaparin Sodium 60 MG/0.6 ML SYRINGE SC SCH ×2 (09:05→20:39)
[2019-10-13] MEDS: Multivitamin W/ Minerals 1 TAB PO SCH (09:05)
[2019-10-13] MEDS: Lisinopril 20 MG TAB PO SCH (09:05)
[2019-10-13] MEDS: Famotidine 20 MG TAB PO SCH ×2 (09:05→20:40)
[2019-10-13] MEDS: Amlodipine 5 mg/Benazepril 20 mg CAP PO SCH (09:05)
[2019-10-13] MEDS: metFORMIN 500 MG TAB PO SCH ×2 (09:05→17:10)
[2019-10-13] MEDS: Morphine 2 MG/ML VIAL SLOW IVP PRN ×3 (09:27→14:27)
--- NOTE | 2019-10-13 10:24 | RAD ---
Chest one view HISTORY: COVID pneumonia. COMPARISON: 10/08/2019. FINDINGS: Cardiac silhouette is magnified by projection and now more obscured by dense bilateral airs pace disease throughout each lung that has progressed significantly. Pulmonary vasculature is slightly engorged and accentuated by shallow inspiration. Right hemidiaphrag m is elevated. Mediastinum is midline. No evidence of pneumothorax. IMPRESSION : Significant interval radiographic worsening in widespread dense parenchymal infiltrate.
--- NOTE | 2019-10-13 13:14 | PDOC.HOSPP ---
- Subjective Encounter Date: 10/13/19 Encounter Time: 07:20 Subjective: overnight, was on HFNC but then deteriorated and put back on Bipap. This morning , short of breath and more tachypnic. - Objective Vital Signs & Weight: Vital Signs (12 hours) Temp BP Pulse Ox 10/13/19 09:05 132/62 10/13/19 08:00 88 L 10/13/19 03:21 99.8 F H Weight Weight 170 lb 3.2 oz Most Recent Monitor Data Heart Rate from ECG 101 NIBP 100/75 NIBP BP-Mean 83 Respiration from ECG 23 SpO2 98 I&O: 10/12/19 10/13/19 10/14/19 06:59 06:59 06:59 Intake Total 950 1000 Output Total 550 1000 Balance 400 0 Result Diagrams: 10/11/19 03:36 10/11/19 03:36 Additional Labs: Accuchecks 10/12/19 10/12/19 20:31 16:33 POC Glucose 142 H 176 H Hospitalist ROS - Review of Systems Constitutional: denies: chills, sweats Respiratory: reports: shortness of breath. denies: cough, dry Cardiovascular: denies: chest pain, palpitations, orthopnea Gastrointestinal: denies: nausea, vomiting, abdominal pain Genitourinary: denies: dysuria, frequency, hematuria - Medication Medications: Active Medications Generic Name Dose Route Start Last Admin Trade Name Freq PRN Reason Stop Dose Admin Acetaminophen 650 mg 10/08/19 05:45 10/12/19 05:48 Tylenol PO 650 mg Q4H PRN Administration Headache/Fever/Mild Pain (1-3) Alprazolam 0.25 mg 10/11/19 00:41 10/13/19 06:23 Xanax PO 0.25 mg QIDPRN PRN Administration Anxiety Amlodipine/Benazepril HCl 1 cap 10/09/19 09:00 10/13/19 09:05 Lotrel 5/20 PO 1 cap DAILY KAYLIE Administration Enoxaparin Sodium 60 mg 10/08/19 21:00 10/13/19 09:05 Lovenox SC 60 mg 0900,2100 KAYLIE Administration Famotidine 20 mg 10/08/19 09:00 10/13/19 09:05 Pepcid PO 20 mg BID KAYLIE Administration Azithromycin 500 mg/ Sodium 250 mls @ 250 mls/hr 10/09/19 04:00 10/13/19 03: 08 Chloride IVPB 250 mls 0400 KAYLIE Administration Iron/Minerals/Multivitamins 1 tab 10/09/19 09:00 10/13/19 09:05 Theragran M PO 1 tab DAILY KAYLIE Administration Latanoprost 1 drop 10/08/19 21:00 10/12/19 20:19 Xalatan 0.005% Ophth Soln EA EYE 1 drop HS KAYILE Administration Lisinopril 40 mg 10/09/19 09:00 10/13/19 09:05 Zestril PO 40 mg DAILY KAYLIE Administration Metformin HCl 500 mg 10/08/19 17:00 10/13/19 09:05 Glucophage PO 500 mg BID-WM KAYLIE Administration Mometasone Furoate 200 mcg 10/12/19 18:30 10/13/19 06:16 Asmanex Hfa 100 Mcg INH 2 inh BID-RT KAYLIE Administration Morphine Sulfate 2 mg 10/11/19 00:40 10/13/19 13:07 Morphine SLOW IVP 2 mg Q1H PRN Administration Pain Sodium Chloride 10 ml 10/08/19 09:00 10/13/19 09:06 Flush - Normal Saline IVF 10 ml Q12HR KAYLIE Administration Sodium Chloride 10 ml 10/08/19 06:34 10/09/19 05:27 Flush - Normal Saline IVF 10 ml PRN PRN Administration Saline Flush Venlafaxine HCl 75 mg 10/08/19 21:00 10/13/19 09:05 Effexor PO 75 mg BID KAYLIE Administration Zinc Sulfate 220 mg 10/09/19 09:00 10/13/19 09:04 Zinc Sulfate PO 220 mg DAILY KAYLIE Administration - Exam General - other findings: in moderate distress due to dyspnea, on bipap 14/10 Neck: no JVD Heart: RRR, no murmur, no gallops, no rubs Respiratory - other findings: coarse breath sounds with diffuse inspiratory rales Extremities: 1+ LE edema Psychiatric: A&O x 3 Hosp A/P - Plan #covid pneumonia #ARDS on dexa, bipap 1410; per nurse planning to administer plasma CXR interval worsening of bilateral patchy infiltrattes defer remdesivir, IL-6 to PCCM #HTN currently better control patient currently on two different ACEIs; defer to PCCM #T2DM well controlled; continue metformin with mild sliding Cardiac only; palliative care team onboard
[2019-10-13] MEDS ORDERED: Ascorbic Acid 500 mg Chewable Tablet PO SCH (13:15)
[2019-10-13] MEDS ORDERED: methylPREDNISolone Sod Succ/PF 125 MG/2 ML VIAL IVP SCH (13:15)
--- NOTE | 2019-10-13 19:22 | PRG ---
DATE OF SERVICE: 10/13/2019 Ms. Rojas unfortunately continues to do poorly. She really could be at a point where I would consider intubating her, but she has decided she does not want to be intubated. She does not tolerate having BiPAP off. Her hemodynamics have been stable. Lungs, heart, and abdomen are unchanged. She apparently is a do not intubate patient, but chest compression, CPR, cardioversion patient. If she has a cardiac arrest, it would be because of a respiratory arrest, and chest compressions and the code will be of no benefit. We will continue to follow along with the other physicians. She should be a full do not resuscitate patient if she does not want intubation. Job ID: [id number]
[2019-10-13] MEDS: methylPREDNISolone Sod Succ/PF 125 MG/2 ML VIAL IVP SCH (20:39)
[2019-10-13] MEDS: Latanoprost 0.005% Ophth Soln 2.5 ml Bottle EA EYE SCH (20:41)
[2019-10-14 03:27] LABS: #Lymphocytes 0.7 thou/uL (1.20-3.40); #Monocytes 0.3 thou/uL (0.11-0.59); #Neutrophils 10.8 thou/uL (1.40-6.50); %Basophils 0.1 % (0.0-1.0); %Eosinophils 0.2 % (0.0-10.0); %Lymphocytes 5.7 % (21.0-51.0); %Monocytes 2.8 % (0.0-10.0); %Neutrophils 91.3 % (42.0-75.0); Hemoglobin 13.4 g/dL (12.0-16.0); Mean Corpuscular HGB CONC 31.3 g/dL (32.0-36.0); Mean Platelet Volume 6.4 fL (7.4-10.4); Platelet Count 439 thou/uL (130-400); RBC Distribution Width 11.8 % (11.5-14.5); Red Blood Cell (RBC) Count 4.46 mill/uL (4.20-5.40); White Blood Cell (WBC) Count 11.8 thou/uL (4.8-10.8)
[2019-10-14 03:50] LABS: Anion Gap 13 mmol/L (10-20); BUN (Urea Nitrogen) 21 mg/dL (9.8-20.1); Calc. Creatinine Clearance 90 mL/min (70-130); Calcium 8.5 mg/dL (7.8-10.44); Carbon Dioxide 29 mmol/L (23-31); Chloride 102 mmol/L (98-107); Estimated GFR-MDRD 85; Glucose 187 mg/dL (83-110); Magnesium 2.7 mg/dL (1.6-2.6); Potassium 5.1 mmol/L (3.5-5.1); Sodium 139 mmol/L (136-145)
[2019-10-14] MEDS: Azithromycin 500 MG in Sodium Chloride 0.9% 250 ML 250 ML IVPB SCH (04:25)
[2019-10-14] MEDS: Mometasone 100 MCG/PUFF (1 INHALER) INH SCH ×2 (06:14→16:17)
[2019-10-14] MEDS: metFORMIN 500 MG TAB PO SCH ×2 (08:56→16:17)
[2019-10-14] MEDS: Enoxaparin Sodium 60 MG/0.6 ML SYRINGE SC SCH ×2 (09:13→20:16)
[2019-10-14] MEDS: Morphine 2 MG/ML VIAL SLOW IVP PRN ×2 (09:14→20:17)
[2019-10-14] MEDS: methylPREDNISolone Sod Succ/PF 125 MG/2 ML VIAL IVP SCH ×2 (09:14→20:16)
[2019-10-14] MEDS: Ascorbic Acid 500 mg Chewable Tablet PO SCH (09:15)
[2019-10-14] MEDS: Amlodipine 5 mg/Benazepril 20 mg CAP PO SCH (09:15)
[2019-10-14] MEDS: Famotidine 20 MG TAB PO SCH ×2 (09:15→20:17)
[2019-10-14] MEDS: ALPRAZolam 0.25 MG TAB PO PRN ×3 (09:15→22:02)
[2019-10-14] MEDS: Lisinopril 20 MG TAB PO SCH (09:15)
[2019-10-14] MEDS: Multivitamin W/ Minerals 1 TAB PO SCH (09:15)
[2019-10-14] MEDS: Zinc Sulfate 220 MG CAP PO SCH (09:16)
--- NOTE | 2019-10-14 12:55 | PQF ---
Q56 2019 [facility] Updated: CLINICAL DOCUMENTATION CLARIFICATION FORM: Dear Dr. SYL MCLAUGHLIN Date / Time: 10-14-19 Please exercise your independent, professional judgment in responding to the clarification form. Clinical indicators are provided on the bottom of this form for your review. Please check appropriate box(es): [ ] Sepsis due to: [ ] Severe sepsis with associated acute organ dysfunction: [ ] Acute Respiratory [ ] Additional/Other: please specify: [ ] Localized infection without sepsis [ ] SIRS due to non-infectious process (please specify etiology) [ ] with organ dysfunction [ ] without organ dysfunction [ ] Other diagnosis [ x ] Unable to determine In addition, please specify: Present on Admission (POA): [ ] Yes [ ] No [ ] Unable to determine For continuity of documentation, please document condition throughout progress notes and discharge summary. Thank You. To be completed by CDI/Coding staff for physician review: CLINICAL INDICATORS - SIGNS / SYMPTOMS / LABS / RESULTS AND LOCATION IN MR: ER DX 10-08-19: COVID-19, CORONAVIRUS CONFIRMED, HYPOXIA H&P 10-08-19: O2 SAT 79%, IMPROVED TO 93% WHEN ON O2 40% AT 45LPM, MAX TEMP 102.7, SOB, COUGH; NOW WITH LIKELY VIRAL PNEUMONIA SECONDARY TO COVID [address] MCLAUGHLIN 10-13-19: COVID PNEUMONIA, ARDS WBC: 10-11-19: 13.1, 10-14-19: 11.8 C-REACTIVE PROTEIN 10-11-19: 15.80 RISK FACTORS / RESULTS AND LOCATION IN MR: H&P 10-08-19: O2 SAT 79%, IMPROVED TO 93% WHEN ON O2 40% AT 45LPM, MAX TEMP 102.7, SOB, COUGH; NOW WITH LIKELY VIRAL PNEUMONIA SECONDARY TO COVID [address] MCLAUGHLIN 10-13-19: COVID PNEUMONIA, ARDS TREATMENTS / RESULTS AND LOCATION IN MR: H&P 10-09-19: CONTINUE HIGH FLOW NASAL CANNULA, EMPIRIC AZITHROMYCIN, CEFTRIAXONE, DECADRON, PULMONARY CONSULT, F/U CXR AND LABS CDS Signature: Hetal Jcarlos Phone #:[phone] Date: 10-14-19 This is a permanent part of the Medical Record [facility]
[2019-10-14] MEDS: Acetaminophen 325 MG TAB PO PRN (18:41)
--- NOTE | 2019-10-14 19:00 | PDOC.HOSPP ---
- Subjective Encounter Date: 10/14/19 Encounter Time: 18:30 Subjective: overnight, increased oxygen demand but later in the day, improvement, back on HFNC, decided to revert code status to full code. On encounter, appears less tachypnic. Endorses panicking when unable to move around. Reiterated the severity of her disease and discussed code status again, explaining the consequences and likely outcome s/p resuscitation efforts. - Objective Vital Signs & Weight: Vital Signs (12 hours) Temp Pulse Resp BP Pulse Ox 10/14/19 16:00 98.4 F 10/14/19 12:00 98.3 F 10/14/19 09:15 132/62 10/14/19 08:00 98.4 F 92 L 10/14/19 07:00 76 26 H 92 L Weight Weight 170 lb 3.2 oz Most Recent Monitor Data Heart Rate from ECG 89 NIBP 140/62 NIBP BP-Mean 88 Respiration from ECG 24 SpO2 92 I&O: 10/13/19 10/14/19 10/15/19 06:59 06:59 06:59 Intake Total 1000 1260 780 Output Total 1000 450 700 Balance 0 810 80 Result Diagrams: 10/14/19 03:13 10/14/19 03:13 Additional Labs: Accuchecks 10/14/19 10/13/19 10/13/19 12:39 20:50 06:26 POC Glucose 152 H 196 H 108 Hospitalist ROS - Review of Systems Constitutional: denies: chills, sweats Respiratory: reports: shortness of breath, SOB with excertion. denies: cough, dry, hemoptysis, pleuritic pain Cardiovascular: denies: chest pain, palpitations, orthopnea Gastrointestinal: denies: nausea, vomiting, abdominal pain - Medication Medications: Active Medications Generic Name Dose Route Start Last Admin Trade Name Freq PRN Reason Stop Dose Admin Acetaminophen 650 mg 10/08/19 05:45 10/14/19 18:41 Tylenol PO 650 mg Q4H PRN Administration Headache/Fever/Mild Pain (1-3) Alprazolam 0.25 mg 10/11/19 00:41 10/14/19 16:17 Xanax PO 0.25 mg QIDPRN PRN Administration Anxiety Ascorbic Acid 1,000 mg 10/14/19 09:00 10/14/19 09:15 Vitamin C PO 1,000 mg DAILY KAYLIE Administration Enoxaparin Sodium 60 mg 10/08/19 21:00 10/14/19 09:13 Lovenox SC 60 mg 09,2099 KAYLIE Administration Famotidine 20 mg 10/08/19 09:00 10/14/19 09:15 Pepcid PO 20 mg BID KAYLIE Administration Azithromycin 500 mg/ Sodium 250 mls @ 250 mls/hr 10/09/19 04:00 10/14/19 04: 25 Chloride IVPB 250 mls 0400 KAYLIE Administration Iron/Minerals/Multivitamins 1 tab 10/09/19 09:00 10/14/19 09:15 Theragran M PO 1 tab DAILY KAYLIE Administration Latanoprost 1 drop 10/08/19 21:00 10/13/19 20:41 Xalatan 0.005% Ophth Soln EA EYE 1 drop HS KAYLIE Administration Lisinopril 40 mg 10/09/19 09:00 10/14/19 09:15 Zestril PO 40 mg DAILY KAYLIE Administration Metformin HCl 500 mg 10/08/19 17:00 10/14/19 16:17 Glucophage PO 500 mg BID-WM KAYLIE Administration Methylprednisolone Sodium Succinate 80 mg 10/13/19 21:00 10/14/19 09:14 Solu-Medrol IVP 80 mg Q12HR KAYLIE Administration Mometasone Furoate 200 mcg 10/12/19 18:30 10/14/19 16:17 Asmanex Hfa 100 Mcg INH 2 inh BID-RT KAYLIE Administration Morphine Sulfate 2 mg 10/11/19 00:40 10/14/19 09:14 Morphine SLOW IVP 2 mg Q1H PRN Administration Pain Sodium Chloride 10 ml 10/08/19 09:00 10/14/19 09:16 Flush - Normal Saline IVF 10 ml Q12HR KAYLIE Administration Sodium Chloride 10 ml 10/08/19 06:34 10/09/19 05:27 Flush - Normal Saline IVF 10 ml PRN PRN Administration Saline Flush Venlafaxine HCl 75 mg 10/08/19 21:00 10/14/19 09:16 Effexor PO 75 mg BID KAYLIE Administration Zinc Sulfate 220 mg 10/09/19 09:00 10/14/19 09:16 Zinc Sulfate PO 220 mg DAILY KAYLIE Administration - Exam General Appearance: NAD, awake alert General - other findings: overall better than yesterday Neck: no JVD Heart: RRR, no murmur, no gallops, no rubs Respiratory: no wheezes Respiratory - other findings: inspiratory rales and rhonchi Gastrointestinal: soft, non-tender, non-distended Extremities: no edema Psychiatric: normal affect, normal behavior, A&O x 3 Hosp A/P - Plan #covid pneumonia #ARDS mild improvement in breathing; currently on HFNC #HTN increased amlodipine #T2DM well controlled; continue metformin with mild sliding Full code
[2019-10-14] MEDS: Latanoprost 0.005% Ophth Soln 2.5 ml Bottle EA EYE SCH (20:17)
--- NOTE | 2019-10-14 22:48 | PRG ---
DATE OF SERVICE: 10/14/2019 SUBJECTIVE: Fidelia Rojas has done amazing turn around in the last 24 hours. She is on high-flow. She is talking in complete sentences. She wants to be a full code, again, which is reasonable. OBJECTIVE: VITAL SIGNS: She is afebrile. Heart rate is in the 80s and blood pressure 148/74. LUNGS: Otherwise unchanged. HEART: Otherwise unchanged. ABDOMEN: Otherwise unchanged. IMPRESSION: COVID pneumonia, transient respiratory failure requiring BiPAP now better on high-flow. Hopefully, this will be a persistent improvement. We will check a C-reactive protein again in the morning. We will continue to follow. Job ID: [id number]
--- NOTE | 2019-10-15 04:42 | PDOC.HOSPP ---
- Subjective Encounter Date: 10/15/19 Encounter Time: 07:00 Subjective: Overnight, desatted requiring Bipap during night, now on HFNC. Endorses breathing the best since admission. - Objective Vital Signs & Weight: Vital Signs (12 hours) Temp Pulse Resp Pulse Ox 10/15/19 04:11 98.6 F 10/15/19 00:41 74 26 H 92 L 10/15/19 00:05 98.2 F 10/14/19 20:15 99.6 F Weight Weight 170 lb 3.2 oz Most Recent Monitor Data Heart Rate from ECG 71 NIBP 116/69 NIBP BP-Mean 84 Respiration from ECG 23 SpO2 89 I&O: 10/13/19 10/14/19 10/15/19 06:59 06:59 06:59 Intake Total 1000 1260 780 Output Total 1000 450 700 Balance 0 810 80 Result Diagrams: 10/14/19 03:13 10/14/19 03:13 Additional Labs: Accuchecks 10/14/19 10/14/19 20:26 12:39 POC Glucose 221 H 152 H Hospitalist ROS - Review of Systems Constitutional: denies: chills, sweats Respiratory: reports: shortness of breath, SOB with excertion. denies: cough, dry Cardiovascular: denies: chest pain, palpitations, orthopnea Gastrointestinal: denies: nausea, vomiting, abdominal pain - Medication Medications: Active Medications Generic Name Dose Route Start Last Admin Trade Name Freq PRN Reason Stop Dose Admin Acetaminophen 650 mg 10/08/19 05:45 10/14/19 18:41 Tylenol PO 650 mg Q4H PRN Administration Headache/Fever/Mild Pain (1-3) Alprazolam 0.25 mg 10/11/19 00:41 10/14/19 22:02 Xanax PO 0.25 mg QIDPRN PRN Administration Anxiety Ascorbic Acid 1,000 mg 10/14/19 09:00 10/14/19 09:15 Vitamin C PO 1,000 mg DAILY KAYLIE Administration Bisacodyl 10 mg 10/08/19 05:45 10/14/19 20:17 Dulcolax PO 10 mg DAILYPRN PRN Administration Constipation Enoxaparin Sodium 60 mg 10/08/19 21:00 10/14/19 20:16 Lovenox SC 60 mg 0900,2100 KAYLIE Administration Famotidine 20 mg 10/08/19 09:00 10/14/19 20:17 Pepcid PO 20 mg BID KAYLIE Administration Iron/Minerals/Multivitamins 1 tab 10/09/19 09:00 10/14/19 09:15 Theragran M PO 1 tab DAILY KAYLIE Administration Latanoprost 1 drop 10/08/19 21:00 10/14/19 20:17 Xalatan 0.005% Ophth Soln EA EYE 1 drop HS KAYLIE Administration Lisinopril 40 mg 10/09/19 09:00 10/14/19 09:15 Zestril PO 40 mg DAILY KAYLIE Administration Metformin HCl 500 mg 10/08/19 17:00 10/14/19 16:17 Glucophage PO 500 mg BID-WM KAYLIE Administration Methylprednisolone Sodium Succinate 80 mg 10/13/19 21:00 10/14/19 20:16 Solu-Medrol IVP 80 mg Q12HR KAYLIE Administration Mometasone Furoate 200 mcg 10/12/19 18:30 10/14/19 16:17 Asmanex Hfa 100 Mcg INH 2 inh BID-RT KAYLIE Administration Morphine Sulfate 2 mg 10/11/19 00:40 10/14/19 20:17 Morphine SLOW IVP 2 mg Q1H PRN Administration Pain Sodium Chloride 10 ml 10/08/19 09:00 10/14/19 20:16 Flush - Normal Saline IVF 10 ml Q12HR KAYLIE Administration Sodium Chloride 10 ml 10/08/19 06:34 10/09/19 05:27 Flush - Normal Saline IVF 10 ml PRN PRN Administration Saline Flush Venlafaxine HCl 75 mg 10/08/19 21:00 10/14/19 20:17 Effexor PO 75 mg BID KAYLIE Administration Zinc Sulfate 220 mg 10/09/19 09:00 10/14/19 09:16 Zinc Sulfate PO 220 mg DAILY KAYLIE Administration - Exam General Appearance: NAD, awake alert Neck: no JVD Heart: RRR, no murmur Respiratory: no wheezes Respiratory - other findings: inspiratory rales and rhonchi Gastrointestinal: soft, non-tender, non-distended, normal bowel sounds Hosp A/P - Plan #covid pneumonia #ARDS clinically improving on steroids, PCCM onboard #HTN well controlled #T2DM well controlled; continue metformin with mild sliding Full code
[2019-10-15] MEDS: Mometasone 100 MCG/PUFF (1 INHALER) INH SCH ×2 (05:34→17:14)
[2019-10-15] MEDS: HumaLOG 300 UNITS/3 ML VIAL SC PRN ×2 (05:35→17:17)
[2019-10-15] MEDS: metFORMIN 500 MG TAB PO SCH ×2 (08:06→17:13)
[2019-10-15] MEDS: Enoxaparin Sodium 60 MG/0.6 ML SYRINGE SC SCH ×2 (08:06→20:45)
[2019-10-15] MEDS: Zinc Sulfate 220 MG CAP PO SCH (08:06)
[2019-10-15] MEDS: Amlodipine 10 MG TAB PO SCH (08:06)
[2019-10-15] MEDS: methylPREDNISolone Sod Succ/PF 125 MG/2 ML VIAL IVP SCH ×2 (08:06→20:42)
[2019-10-15] MEDS: Famotidine 20 MG TAB PO SCH ×2 (08:06→20:45)
[2019-10-15] MEDS: ALPRAZolam 0.25 MG TAB PO PRN ×3 (08:07→20:45)
[2019-10-15] MEDS: Multivitamin W/ Minerals 1 TAB PO SCH (08:07)
[2019-10-15] MEDS: Ascorbic Acid 500 mg Chewable Tablet PO SCH (08:07)
[2019-10-15] MEDS: Lisinopril 20 MG TAB PO SCH (08:07)
--- NOTE | 2019-10-15 08:28 | PDOC.FMACP ---
Advance Care Planning - Problem (1) Palliative care encounter Status: Acute Code(s): Z51.5 - ENCOUNTER FOR PALLIATIVE CARE (2) COVID-19 Status: Acute Code(s): U07.1 - COVID-19 (3) Respiratory failure Status: Acute Code(s): J96.90 - RESPIRATORY FAILURE, UNSP, UNSP W HYPOXIA OR HYPERCAPNIA - Note Participants: patient, family, palliative care Summary: Advanced Care Planning was discussed by palliative care, patient and family. The diagnosis, prognosis and goals of care were discussed. Appropriate forms and documentation to accomplish the goals of care were discussed. All questions were answered. Daughter confirms MPOA and is e-mailing for records. Confirms full resuscitation and aggressive therapies. Patient is responding to treatment for Covid and confirms she is hopeful for continued improvement. Desires to have necessary measures needed to sustain life. The Palliative Care Team will be engaged to assist with completion of any outstanding forms that are needed. Dr Olivarez and Dr Olmstead aware. Please also refer to Palliative Care notes in note section. Time Spent (mins): 20
[2019-10-15] MEDS: Acetaminophen 325 MG TAB PO PRN (17:14)
[2019-10-15] MEDS: Morphine 2 MG/ML VIAL SLOW IVP PRN (20:46)
--- NOTE | 2019-10-15 21:51 | PRG ---
DATE OF SERVICE: 10/15/2019 SUBJECTIVE: Fidelia macedo is still sitting in a chair on high-flow oxygen. She states she is feeling better. She is a little hard of hearing. OBJECTIVE: VITAL SIGNS: Blood pressure is 137/67, heart rate is 72, respiratory rate in the 20s, oximetry is in the low 90s, she is on 6 L minute, FiO2 is 90%. GENERAL: She has not shown signs of muscle fatigue. LUNGS: Remarkable for coarse equal breath sounds. HEART: Regular rhythm. ABDOMEN: Soft. LABORATORY DATA: No new lab today. IMPRESSION AND PLAN: Coronavirus disease-19 pneumonia, improving after 2 days on noninvasive ventilation. Hopefully, she will continue to improve. Remains on vitamin C, steroids, anticoagulants, antimicrobial therapy. Job ID: [id number]
[2019-10-15] MEDS: Latanoprost 0.005% Ophth Soln 2.5 ml Bottle EA EYE SCH (22:46)
[2019-10-16 03:53] LABS: Anion Gap 11 mmol/L (10-20); BUN (Urea Nitrogen) 18 mg/dL (9.8-20.1); Calc. Creatinine Clearance 81 mL/min (70-130); Calcium 8.9 mg/dL (7.8-10.44); Carbon Dioxide 31 mmol/L (23-31); Chloride 99 mmol/L (98-107); Estimated GFR-MDRD 76; Glucose 227 mg/dL (83-110); Magnesium 2.3 mg/dL (1.6-2.6); Potassium 5.6 mmol/L (3.5-5.1); Sodium 135 mmol/L (136-145)
[2019-10-16] MEDS: ALPRAZolam 0.25 MG TAB PO PRN ×3 (05:04→21:03)
[2019-10-16] MEDS: Morphine 2 MG/ML VIAL SLOW IVP PRN ×2 (05:04→23:07)
[2019-10-16] MEDS: Mometasone 100 MCG/PUFF (1 INHALER) INH SCH ×2 (06:35→17:08)
[2019-10-16] MEDS ORDERED: Insulin Regular 300 UNITS/3 ML VIAL IVP STA (06:59)
[2019-10-16] MEDS ORDERED: Dextrose 50% Abboject 50 ML SYRINGE SLOW IVP PRN (06:59)
--- NOTE | 2019-10-16 07:26 | PDOC.HOSPP ---
- Subjective Encounter Date: 10/16/19 Encounter Time: 07:15 Subjective: overnight, on bipap, intially FIO2 100, this morning 80. Complains of shortness of breath and episodes of anxiety. Wishes to remain full code. - Objective Vital Signs & Weight: Vital Signs (12 hours) Pulse Resp Pulse Ox 10/16/19 07:15 92 L 10/16/19 00:43 81 23 H 89 L Weight Weight 170 lb 3.2 oz Most Recent Monitor Data Heart Rate from ECG 78 NIBP 122/71 NIBP BP-Mean 88 Respiration from ECG 21 SpO2 89 I&O: 10/15/19 10/16/19 10/17/19 06:59 06:59 06:59 Intake Total 1030 650 Output Total 900 780 Balance 130 -130 Result Diagrams: 10/14/19 03:13 10/16/19 03:18 Additional Labs: Accuchecks 10/15/19 10/15/19 10/15/19 20:57 17:36 12:00 POC Glucose 208 H 194 H 207 H 10/14/19 16:34 POC Glucose 216 H Hospitalist ROS - Review of Systems Constitutional: denies: chills, sweats Respiratory: reports: shortness of breath, SOB with excertion. denies: cough, dry, hemoptysis, pleuritic pain, sputum Cardiovascular: denies: chest pain, palpitations, orthopnea Gastrointestinal: denies: nausea, vomiting, abdominal pain Genitourinary: denies: hematuria - Medication Medications: Active Medications Generic Name Dose Route Start Last Admin Trade Name Freq PRN Reason Stop Dose Admin Acetaminophen 650 mg 10/08/19 05:45 10/15/19 17:14 Tylenol PO 650 mg Q4H PRN Administration Headache/Fever/Mild Pain (1-3) Alprazolam 0.25 mg 10/11/19 00:41 10/16/19 05:04 Xanax PO 0.25 mg QIDPRN PRN Administration Anxiety Amlodipine Besylate 10 mg 10/15/19 09:00 10/15/19 08:06 Norvasc PO 10 mg DAILY KAYLIE Administration Ascorbic Acid 1,000 mg 10/14/19 09:00 10/15/19 08:07 Vitamin C PO 1,000 mg DAILY KAYLIE Administration Bisacodyl 10 mg 10/08/19 05:45 10/14/19 20:17 Dulcolax PO 10 mg DAILYPRN PRN Administration Constipation Enoxaparin Sodium 60 mg 10/08/19 21:00 10/15/19 20:45 Lovenox SC 60 mg 0900,2100 KAYLIE Administration Famotidine 20 mg 10/08/19 09:00 10/15/19 20:45 Pepcid PO 20 mg BID KAYLIE Administration Insulin Human Lispro 0 units 10/09/19 20:14 10/15/19 17:17 Humalog SC 2 unit .MILD SLIDING SCALE PRN Administration Mild Correctional Scale Iron/Minerals/Multivitamins 1 tab 10/09/19 09:00 10/15/19 08:07 Theragran M PO 1 tab DAILY KAYLIE Administration Latanoprost 1 drop 10/08/19 21:00 10/15/19 22:46 Xalatan 0.005% Ophth Soln EA EYE Not Given HS KAYLIE Metformin HCl 500 mg 10/08/19 17:00 10/15/19 17:13 Glucophage PO Not Given BID-WM KAYLIE Methylprednisolone Sodium Succinate 80 mg 10/13/19 21:00 10/15/19 20:42 Solu-Medrol IVP 80 mg Q12HR KAYLIE Administration Mometasone Furoate 200 mcg 10/12/19 18:30 10/16/19 06:35 Asmanex Hfa 100 Mcg INH 2 puff BID-RT KAYLIE Administration Morphine Sulfate 2 mg 10/11/19 00:40 10/16/19 05:04 Morphine SLOW IVP 2 mg Q1H PRN Administration Pain Ondansetron HCl 4 mg 10/08/19 05:44 10/15/19 17:15 Zofran IVP 4 mg Q6H PRN Administration Nausea/Vomiting, use 1st Sodium Chloride 10 ml 10/08/19 09:00 10/15/19 22:46 Flush - Normal Saline IVF 10 ml Q12HR KAYLIE Administration Sodium Chloride 10 ml 10/08/19 06:34 10/09/19 05:27 Flush - Normal Saline IVF 10 ml PRN PRN Administration Saline Flush Venlafaxine HCl 75 mg 10/08/19 21:00 10/15/19 20:45 Effexor PO 75 mg BID KAYLIE Administration Zinc Sulfate 220 mg 10/09/19 09:00 10/15/19 08:06 Zinc Sulfate PO 220 mg DAILY KAYLIE Administration - Exam General Appearance: awake alert General - other findings: mild distress due to dyspnea Eye: PERRL, anicteric sclera Neck: no JVD Heart: RRR, no murmur, no gallops, no rubs Respiratory - other findings: diffuse inspiratory rales, worse Gastrointestinal: soft, non-tender, non-distended, normal bowel sounds Extremities: no edema Psychiatric: A&O x 3 Hosp A/P - Plan #covid pneumonia #ARDS worse than yesterday diffuse rales on exam positive overall fluid balance over the past few days lasix once on steroids, PCCM onboard #hyperkalemia -insuilin, dextrose, kayexalate; lasix; repeat K #HTN well controlled reduced lisinopril due to hyperkalemia considering well controlled blood pressure #T2DM well controlled; continue metformin with mild sliding #anxiety on venlafaxine; can use morphine for anxiety in context of dyspnea or low dose ativan otherwise Full code
[2019-10-16] MEDS ORDERED: Furosemide 40 MG/4 ML VIAL SLOW IVP SCH (07:30)
[2019-10-16] MEDS: methylPREDNISolone Sod Succ/PF 125 MG/2 ML VIAL IVP SCH ×2 (07:36→21:04)
[2019-10-16] MEDS: Enoxaparin Sodium 60 MG/0.6 ML SYRINGE SC SCH ×2 (07:39→21:03)
[2019-10-16] MEDS: Ascorbic Acid 500 mg Chewable Tablet PO SCH (07:40)
[2019-10-16] MEDS: Lisinopril 20 MG TAB PO SCH (07:40)
[2019-10-16] MEDS: Multivitamin W/ Minerals 1 TAB PO SCH (07:41)
[2019-10-16] MEDS: metFORMIN 500 MG TAB PO SCH ×2 (07:41→17:08)
[2019-10-16] MEDS: Famotidine 20 MG TAB PO SCH ×2 (07:41→21:03)
[2019-10-16] MEDS: Amlodipine 10 MG TAB PO SCH (07:41)
[2019-10-16] MEDS: Zinc Sulfate 220 MG CAP PO SCH (07:43)
--- NOTE | 2019-10-16 09:36 | PRG ---
DATE OF SERVICE: 10/16/2019 SUBJECTIVE: Fidelia Rojas was still on BiPAP last night to help her sleep and rest. Hopefully, she get back on high-flow today. OBJECTIVE: VITAL SIGNS: Blood pressure 155/99, heart rate is 80, and respiratory rates in the 20s. GENERAL: She appears reasonably comfortable. LUNGS: Unchanged. HEART: Unchanged. ABDOMEN: Unchanged. LABORATORY DATA: There is no new lab except for electrolytes. Sodium , potassium 5.6, chloride 99, bicarb 31, BUN 18, creatinine 0.75, and glucose 227. IMPRESSION: 1. COVID-19 pneumonia. 2. Diabetes. 3. Intermittent requirements for BiPAP. Overall, she is better than she was three days ago . Job ID: [id number]
[2019-10-16] MEDS: Latanoprost 0.005% Ophth Soln 2.5 ml Bottle EA EYE SCH (21:22)
[2019-10-17] MEDS: Mometasone 100 MCG/PUFF (1 INHALER) INH SCH ×2 (05:57→17:08)
[2019-10-17] MEDS: HumaLOG 300 UNITS/3 ML VIAL SC PRN ×3 (06:18→20:49)
[2019-10-17] MEDS: ALPRAZolam 0.25 MG TAB PO PRN ×2 (08:52→17:09)
[2019-10-17] MEDS: Amlodipine 10 MG TAB PO SCH (08:53)
[2019-10-17] MEDS: metFORMIN 500 MG TAB PO SCH ×2 (08:53→17:08)
[2019-10-17] MEDS: Ascorbic Acid 500 mg Chewable Tablet PO SCH (08:53)
[2019-10-17] MEDS: Multivitamin W/ Minerals 1 TAB PO SCH (08:53)
[2019-10-17] MEDS: Zinc Sulfate 220 MG CAP PO SCH (08:54)
[2019-10-17] MEDS: Lisinopril 20 MG TAB PO SCH (08:55)
[2019-10-17] MEDS: Famotidine 20 MG TAB PO SCH ×2 (08:55→20:40)
[2019-10-17] MEDS: Enoxaparin Sodium 60 MG/0.6 ML SYRINGE SC SCH ×2 (08:55→20:40)
[2019-10-17] MEDS: methylPREDNISolone Sod Succ/PF 125 MG/2 ML VIAL IVP SCH ×2 (08:56→20:40)
--- NOTE | 2019-10-17 13:21 | PRG ---
DATE OF SERVICE: 10/17/2019 SUBJECTIVE: Ms. Rojas is now day #9 of admission for COVID pneumonia. She continues with significant oxygen demands including high-flow nasal cannula at 60% and BiPAP at night. It appears as though she received convalescent plasma and steroids, but not Remdesivir. OBJECTIVE: VITAL SIGNS: Blood pressure 135/99, heart rate 74, temperature 98.8, saturation 95% on high-flow nasal cannula. GENERAL: She is in mild distress. LUNGS: Bilateral crackles without wheezes. HEART: Regular rate and rhythm. ABDOMEN: Soft. There is no organomegaly. EXTREMITIES: She has no edema. LABORATORY DATA: None for several days. IMPRESSION: COVID pneumonia, still with high FiO2 demands. PLAN: We will continue high-flow nasal oxygen in the day and BiPAP at night. Laboratory will be obtained tomorrow. At this point, she does not require intubation, but remains tenuous with guarded prognosis. Job ID: [id number]
--- NOTE | 2019-10-17 15:27 | PDOC.HOSPP ---
- Subjective Encounter Date: 10/17/19 Encounter Time: 14:00 Subjective: Patient was seen for follow-up regarding COVID-19 pneumonia. She reports feeling better. She is still on high flow oxygen. - Objective Vital Signs & Weight: Vital Signs (12 hours) Temp Pulse Resp BP Pulse Ox 10/17/19 12:00 98.7 F 10/17/19 08:55 135/99 H 10/17/19 08:53 74 10/17/19 08:00 98.8 F 10/17/19 07:30 95 10/17/19 07:15 74 24 H 91 L Weight Weight 170 lb 3.2 oz Most Recent Monitor Data Heart Rate from ECG 101 NIBP 163/85 NIBP BP-Mean 111 Respiration from ECG 27 SpO2 96 I&O: 10/16/19 10/17/19 10/18/19 06:59 06:59 06:59 Intake Total 650 700 Output Total 780 1100 Balance -130 -400 Result Diagrams: 10/14/19 03:13 10/16/19 21:13 Additional Labs: Accuchecks 10/17/19 10/16/19 10/16/19 06:21 21:16 17:31 POC Glucose 227 H 207 H 224 H 10/16/19 10/16/19 10/16/19 10:39 08:37 08:22 POC Glucose 174 H 238 H 133 H MAR and labs were reviewed by me EKG Reviewed by me: Yes (Telemetry: Normal sinus rhythm) Hospitalist ROS - Review of Systems Respiratory: reports: cough, dry, SOB with excertion. denies: shortness of breath, hemoptysis, pleuritic pain, sputum, wheezing Cardiovascular: denies: chest pain, palpitations, orthopnea, paroxysmal noc. dyspnea, edema, light headedness - Medication Medications: Active Medications Generic Name Dose Route Start Last Admin Trade Name Freq PRN Reason Stop Dose Admin Acetaminophen 650 mg 10/08/19 05:45 10/15/19 17:14 Tylenol PO 650 mg Q4H PRN Administration Headache/Fever/Mild Pain (1-3) Alprazolam 0.25 mg 10/11/19 00:41 10/17/19 08:52 Xanax PO 0.25 mg QIDPRN PRN Administration Anxiety Amlodipine Besylate 10 mg 10/15/19 09:00 10/17/19 08:53 Norvasc PO 10 mg DAILY KAYLIE Administration Ascorbic Acid 1,000 mg 10/14/19 09:00 10/17/19 08:53 Vitamin C PO 1,000 mg DAILY KAYLIE Administration Bisacodyl 10 mg 10/08/19 05:45 10/14/19 20:17 Dulcolax PO 10 mg DAILYPRN PRN Administration Constipation Dextrose/Water 25 gm 10/09/19 20:14 10/16/19 07:40 Dextrose 50% SLOW IVP 25 gm PRN PRN Administration Hypoglycemia Enoxaparin Sodium 60 mg 10/08/19 21:00 10/17/19 08:55 Lovenox SC 60 mg 09,2100 KAYLIE Administration Famotidine 20 mg 10/08/19 09:00 10/17/19 08:55 Pepcid PO 20 mg BID KAYLIE Administration Insulin Human Lispro 0 units 10/09/19 20:14 10/17/19 06:18 Humalog SC 3 unit .MILD SLIDING SCALE PRN Administration Mild Correctional Scale Iron/Minerals/Multivitamins 1 tab 10/09/19 09:00 10/17/19 08:53 Theragran M PO 1 tab DAILY KAYLIE Administration Latanoprost 1 drop 10/08/19 21:00 10/16/19 21:22 Xalatan 0.005% Ophcele Soln EA EYE 1 drop HS KAYLIE Administration Lisinopril 20 mg 10/16/19 07:00 10/17/19 08:55 Zestril PO 20 mg DAILY KAYLIE Administration Metformin HCl 500 mg 10/08/19 17:00 10/17/19 08:53 Glucophage PO 500 mg BID-WM KAYLIE Administration Methylprednisolone Sodium Succinate 80 mg 10/13/19 21:00 10/17/19 08:56 Solu-Medrol IVP 80 mg Q12HR KAYLIE Administration Mometasone Furoate 200 mcg 10/12/19 18:30 10/17/19 05:57 Asmanex Hfa 100 Mcg INH 2 puff BID-RT KAYLIE Administration Morphine Sulfate 2 mg 10/11/19 00:40 10/16/19 23:07 Morphine SLOW IVP 2 mg Q1H PRN Administration Pain Ondansetron HCl 4 mg 10/08/19 05:44 10/15/19 17:15 Zofran IVP 4 mg Q6H PRN Administration Nausea/Vomiting, use 1st Sodium Chloride 10 ml 10/08/19 09:00 10/17/19 08:55 Flush - Normal Saline IVF 10 ml Q12HR KAYLIE Administration Sodium Chloride 10 ml 10/08/19 06:34 10/09/19 05:27 Flush - Normal Saline IVF 10 ml PRN PRN Administration Saline Flush Venlafaxine HCl 75 mg 10/08/19 21:00 10/17/19 08:53 Effexor PO 75 mg BID KAYLIE Administration Zinc Sulfate 220 mg 10/09/19 09:00 10/17/19 08:54 Zinc Sulfate PO 220 mg DAILY KAYLIE Administration - Exam General - other findings: Obese Eye: anicteric sclera ENT: moist mucosa Neck: supple Heart: RRR Respiratory: CTAB, no rales Gastrointestinal: soft, non-tender Extremities: no cyanosis Psychiatric: normal affect, normal behavior Hosp A/P - Plan - Plan #covid pneumonia #ARDS She is now off of BiPAP. Oxygen requirements have improved. PCCM following. Continue steroids. #hyperkalemia -Resolved #HTN well controlled #T2DM well controlled; continue metformin with mild sliding #anxiety Continue venlafaxine Full code
[2019-10-17] MEDS: Acetaminophen 325 MG TAB PO PRN (17:09)
[2019-10-18] MEDS: Latanoprost 0.005% Ophth Soln 2.5 ml Bottle EA EYE SCH ×2 (00:04→20:49)
[2019-10-18 03:25] LABS: #Lymphocytes 0.5 thou/uL (1.20-3.40); #Monocytes 0.2 thou/uL (0.11-0.59); #Neutrophils 13.3 thou/uL (1.40-6.50); %Eosinophils 0.2 % (0.0-10.0); %Lymphocytes 3.7 % (21.0-51.0); %Monocytes 1.5 % (0.0-10.0); %Neutrophils 94.6 % (42.0-75.0); Hemoglobin 14.6 g/dL (12.0-16.0); Mean Corpuscular HGB CONC 33.5 g/dL (32.0-36.0); Mean Corpuscular Hemoglobin 31.9 pg (27.0-31.0); Mean Corpuscular Volume 95.3 fL (78.0-98.0); Mean Platelet Volume 6.6 fL (7.4-10.4); Platelet Count 443 thou/uL (130-400); RBC Distribution Width 11.7 % (11.5-14.5); Red Blood Cell (RBC) Count 4.58 mill/uL (4.20-5.40); White Blood Cell (WBC) Count 14.1 thou/uL (4.8-10.8)
[2019-10-18 03:47] LABS: Anion Gap 12 mmol/L (10-20); BUN (Urea Nitrogen) 21 mg/dL (9.8-20.1); Calc. Creatinine Clearance 85 mL/min (70-130); Calcium 9.1 mg/dL (7.8-10.44); Carbon Dioxide 31 mmol/L (23-31); Chloride 97 mmol/L (98-107); Estimated GFR-MDRD 79; Glucose 250 mg/dL (83-110); Potassium 4.5 mmol/L (3.5-5.1); Sodium 135 mmol/L (136-145)
[2019-10-18] MEDS: Mometasone 100 MCG/PUFF (1 INHALER) INH SCH ×2 (06:26→18:46)
[2019-10-18] MEDS: HumaLOG 300 UNITS/3 ML VIAL SC PRN (06:32)
[2019-10-18] MEDS: Ascorbic Acid 500 mg Chewable Tablet PO SCH (07:52)
[2019-10-18] MEDS: metFORMIN 500 MG TAB PO SCH ×2 (07:52→18:32)
[2019-10-18] MEDS: Zinc Sulfate 220 MG CAP PO SCH (07:53)
[2019-10-18] MEDS: Amlodipine 10 MG TAB PO SCH (07:53)
[2019-10-18] MEDS: Famotidine 20 MG TAB PO SCH ×2 (07:53→20:32)
[2019-10-18] MEDS: Lisinopril 20 MG TAB PO SCH (07:53)
[2019-10-18] MEDS: Multivitamin W/ Minerals 1 TAB PO SCH (07:53)
[2019-10-18] MEDS: ALPRAZolam 0.25 MG TAB PO PRN ×2 (07:53→20:33)
[2019-10-18] MEDS: methylPREDNISolone Sod Succ/PF 125 MG/2 ML VIAL IVP SCH ×2 (07:54→20:36)
[2019-10-18] MEDS: Enoxaparin Sodium 60 MG/0.6 ML SYRINGE SC SCH ×2 (07:54→20:31)
--- NOTE | 2019-10-18 16:11 | PRG ---
DATE OF SERVICE: 10/18/2019 SUBJECTIVE: Ms. Rojas is little bit better. She remains on high-flow nasal cannula at 65% to 70%. Her oxygen saturation is quite decent and possibly the concentration rate could be reduced slightly. She is not having any cough. She is able to sit in a chair. PHYSICAL EXAMINATION: VITAL SIGNS: Blood pressure 153/81, heart rate 107, respiratory rate 27, oxygen saturation about 90% on high-flow nasal cannula GENERAL: She is not in acute distress. LUNGS: Show bilateral rhonchi, but no wheezing. There is no rales or dullness. HEART: Regular rate and rhythm with resting tachycardia. ABDOMEN: Soft. There is no organomegaly. EXTREMITIES: She has trace ankle edema. LABORATORY DATA: White count today 14,100, hemoglobin is 14.6, platelet count 443,000. Chemistry panel includes sodium 135, potassium 4.5, chloride 97, CO2 of 31, BUN 21, creatinine 0.7. IMPRESSION: COVID pneumonia with severe hypoxic respiratory failure. PLAN: We will continue current supportive therapies. At this point, the patient does not require intubation. Job ID: [id number]
--- NOTE | 2019-10-18 17:07 | PDOC.HOSPP ---
- Subjective Encounter Date: 10/18/19 Encounter Time: 12:40 Subjective: Patient was seen for follow-up regarding COVID-19 pneumonia, states she feels better. She did not sleep well last night. She spent the entire night in the chair. She reports feeling tired today. - Objective Vital Signs & Weight: Vital Signs (12 hours) Temp BP Pulse Ox 10/18/19 12:00 98.5 F 10/18/19 08:00 98.7 F 89 L 10/18/19 07:53 135/99 H Weight Weight 170 lb 3.2 oz Most Recent Monitor Data Heart Rate from ECG 107 NIBP 153/81 NIBP BP-Mean 105 Respiration from ECG 27 SpO2 89 I&O: 10/17/19 10/18/19 10/19/19 06:59 06:59 06:59 Intake Total 700 790 Output Total 1130 550 Balance -430 240 Result Diagrams: 10/18/19 03:05 10/18/19 03:05 Additional Labs: Accuchecks 10/18/19 10/17/19 10/17/19 12:12 20:51 16:08 POC Glucose 251 H 224 H 281 H 10/17/19 12:21 POC Glucose 187 H Labs and MAR were reviewed by ak Hospitalist ROS - Review of Systems Constitutional: denies: fever, chills, sweats Respiratory: reports: SOB with excertion Cardiovascular: denies: chest pain, palpitations, orthopnea, paroxysmal noc. dyspnea, edema, light headedness - Medication Medications: Active Medications Generic Name Dose Route Start Last Admin Trade Name Freq PRN Reason Stop Dose Admin Acetaminophen 650 mg 10/08/19 05:45 10/17/19 17:09 Tylenol PO 650 mg Q4H PRN Administration Headache/Fever/Mild Pain (1-3) Alprazolam 0.25 mg 10/11/19 00:41 10/18/19 07:53 Xanax PO 0.25 mg QIDPRN PRN Administration Anxiety Amlodipine Besylate 10 mg 10/15/19 09:00 10/18/19 07:53 Norvasc PO 10 mg DAILY KAYLIE Administration Ascorbic Acid 1,000 mg 10/14/19 09:00 10/18/19 07:52 Vitamin C PO 1,000 mg DAILY KAYLIE Administration Bisacodyl 10 mg 10/08/19 05:45 10/14/19 20:17 Dulcolax PO 10 mg DAILYPRN PRN Administration Constipation Dextrose/Water 25 gm 10/09/19 20:14 10/16/19 07:40 Dextrose 50% SLOW IVP 25 gm PRN PRN Administration Hypoglycemia Enoxaparin Sodium 60 mg 10/08/19 21:00 10/18/19 07:54 Lovenox SC 60 mg 0900,2100 KAYLIE Administration Famotidine 20 mg 10/08/19 09:00 10/18/19 07:53 Pepcid PO 20 mg BID KAYLIE Administration Insulin Human Lispro 0 units 10/09/19 20:14 10/18/19 06:32 Humalog SC 4 unit .MILD SLIDING SCALE PRN Administration Mild Correctional Scale Iron/Minerals/Multivitamins 1 tab 10/09/19 09:00 10/18/19 07:53 Theragran M PO 1 tab DAILY KAYLIE Administration Latanoprost 1 drop 10/08/19 21:00 10/18/19 00:04 Xalatan 0.005% Oph Soljacquelin EA EYE 1 drop HS KAYLIE Administration Lisinopril 20 mg 10/16/19 07:00 10/18/19 07:53 Zestril PO 20 mg DAILY KAYLIE Administration Metformin HCl 500 mg 10/08/19 17:00 10/18/19 07:52 Glucophage PO 500 mg BID-WM KAYLIE Administration Methylprednisolone Sodium Succinate 80 mg 10/13/19 21:00 10/18/19 07:54 Solu-Medrol IVP 80 mg Q12HR KAYLIE Administration Mometasone Furoate 200 mcg 10/12/19 18:30 10/18/19 06:26 Asmanex Hfa 100 Mcg INH 2 puff BID-RT KAYLIE Administration Morphine Sulfate 2 mg 10/11/19 00:40 10/16/19 23:07 Morphine SLOW IVP 2 mg Q1H PRN Administration Pain Ondansetron HCl 4 mg 10/08/19 05:44 10/15/19 17:15 Zofran IVP 4 mg Q6H PRN Administration Nausea/Vomiting, use 1st Sodium Chloride 10 ml 10/08/19 09:00 10/18/19 07:54 Flush - Normal Saline IVF 10 ml Q12HR KAYLIE Administration Sodium Chloride 10 ml 10/08/19 06:34 10/09/19 05:27 Flush - Normal Saline IVF 10 ml PRN PRN Administration Saline Flush Venlafaxine HCl 75 mg 10/08/19 21:00 10/18/19 07:53 Effexor PO 75 mg BID KAYLIE Administration Zinc Sulfate 220 mg 10/09/19 09:00 10/18/19 07:53 Zinc Sulfate PO 220 mg DAILY KAYLIE Administration - Exam General - other findings: Obesity Eye: anicteric sclera ENT: moist mucosa Neck: symmetric, no lymphadenopathy Heart: RRR Respiratory: CTAB Gastrointestinal: soft, non-tender Extremities: no cyanosis Skin: no lesions Psychiatric: normal affect, normal behavior Hosp A/P - Plan - Plan #covid pneumonia #ARDS Patient is still on high flow oxygen Continue steroids. #HTN well controlled #T2DM Blood sugars are elevated today. Increase metformin to 1000 mg p.o. twice daily and change insulin sliding scale to moderate. #anxiety Continue venlafaxine #hyperkalemia -Resolved Full code
[2019-10-18] MEDS ORDERED: metFORMIN 500 MG TAB PO SCH (17:15)
[2019-10-18] MEDS: Acetaminophen 325 MG TAB PO PRN (20:32)
[2019-10-19 03:32] LABS: #Basophils 0.1 thou/uL (0.0-0.2); #Lymphocytes 0.4 thou/uL (1.20-3.40); #Monocytes 0.3 thou/uL (0.11-0.59); #Neutrophils 15.6 thou/uL (1.40-6.50); %Basophils 0.4 % (0.0-1.0); %Eosinophils 0.2 % (0.0-10.0); %Lymphocytes 2.5 % (21.0-51.0); %Monocytes 1.6 % (0.0-10.0); %Neutrophils 95.3 % (42.0-75.0); Hemoglobin 14.2 g/dL (12.0-16.0); Mean Corpuscular HGB CONC 32.3 g/dL (32.0-36.0); Mean Corpuscular Hemoglobin 30.6 pg (27.0-31.0); Mean Corpuscular Volume 94.8 fL (78.0-98.0); Mean Platelet Volume 6.8 fL (7.4-10.4); Platelet Count 431 thou/uL (130-400); RBC Distribution Width 11.7 % (11.5-14.5); Red Blood Cell (RBC) Count 4.65 mill/uL (4.20-5.40); White Blood Cell (WBC) Count 16.3 thou/uL (4.8-10.8)
[2019-10-19 03:55] LABS: Anion Gap 11 mmol/L (10-20); BUN (Urea Nitrogen) 22 mg/dL (9.8-20.1); Calc. Creatinine Clearance 88 mL/min (70-130); Calcium 8.8 mg/dL (7.8-10.44); Carbon Dioxide 31 mmol/L (23-31); Chloride 99 mmol/L (98-107); Estimated GFR-MDRD 83; Glucose 282 mg/dL (83-110); Potassium 4.4 mmol/L (3.5-5.1); Sodium 137 mmol/L (136-145)
[2019-10-19] MEDS: Mometasone 100 MCG/PUFF (1 INHALER) INH SCH ×2 (06:23→17:48)
[2019-10-19] MEDS: HumaLOG 300 UNITS/3 ML VIAL SC PRN ×3 (06:26→17:46)
--- NOTE | 2019-10-19 09:23 | PRG ---
DATE OF SERVICE: 10/19/2019 SUBJECTIVE: The patient remains hospitalized with COVID-19 pneumonia. Her admission date was 10/07, so we are now 12 days into this. She remains on high-flow oxygen with FiO2 of 70%. She says she feels marginally okay. OBJECTIVE: VITAL SIGNS: Temperature 98.0, pulse 74, blood pressure 136/80, and O2 saturation ranged between 91% to 94% on the high-flow oxygen as I am talking to her. HEENT: Unremarkable. NECK: No adenopathy or JVD. LUNGS: Diffuse crackles. CARDIAC: S1 and S2, regular. ABDOMEN: Soft. EXTREMITIES: No edema. LABORATORY DATA: White blood cell count 16, hematocrit 44, and platelet count 431. Sodium 137, potassium 4.4, chloride 99, CO2 of 31, BUN 22, creatinine 0.7, and glucose 282. ASSESSMENT: 1. COVID-19 pneumonia. 2. Diabetes mellitus. 3. Obesity. 4. Acute respiratory failure, requiring high-flow oxygen. PLAN: 1. Continue IV steroids, wean oxygen as tolerated. 2. Prognosis for recovery is guarded at best. Job ID: [id number]
[2019-10-19] MEDS: Amlodipine 10 MG TAB PO SCH (09:56)
[2019-10-19] MEDS: metFORMIN 500 MG TAB PO SCH ×2 (09:57→17:19)
[2019-10-19] MEDS: Ascorbic Acid 500 mg Chewable Tablet PO SCH (09:58)
[2019-10-19] MEDS: Famotidine 20 MG TAB PO SCH ×2 (09:58→20:39)
[2019-10-19] MEDS: Enoxaparin Sodium 60 MG/0.6 ML SYRINGE SC SCH ×2 (09:58→20:39)
[2019-10-19] MEDS: methylPREDNISolone Sod Succ/PF 125 MG/2 ML VIAL IVP SCH ×2 (09:59→20:40)
[2019-10-19] MEDS: Lisinopril 20 MG TAB PO SCH (09:59)
[2019-10-19] MEDS: Zinc Sulfate 220 MG CAP PO SCH (10:01)
[2019-10-19] MEDS: Multivitamin W/ Minerals 1 TAB PO SCH (10:01)
--- NOTE | 2019-10-19 16:46 | PDOC.HOSPP ---
- Subjective Encounter Date: 10/19/19 Encounter Time: 09:30 Subjective: Patient was seen for follow-up regarding pneumonia secondary to COVID-19 virus. She reports generalized weakness. - Objective Vital Signs & Weight: Vital Signs (12 hours) Temp Pulse Resp BP Pulse Ox 10/19/19 12:00 98.9 F 91 24 H 98 10/19/19 09:59 135/99 H 10/19/19 09:56 135/99 H 10/19/19 08:00 98.5 F 91 22 H 92 L 10/19/19 07:38 90 L Weight Admit Weight 170 lb 3.2 oz Weight 170 lb 3.2 oz Most Recent Monitor Data Heart Rate from ECG 101 NIBP 138/75 NIBP BP-Mean 96 Respiration from ECG 25 SpO2 95 I&O: 10/18/19 10/19/19 10/20/19 06:59 06:59 06:59 Intake Total 790 790 480 Output Total 550 600 Balance 240 190 480 Result Diagrams: 10/19/19 03:12 10/19/19 03:12 Additional Labs: Accuchecks 10/19/19 10/19/19 10/18/19 13:33 06:12 20:44 POC Glucose 190 H 201 H 167 H 10/18/19 10/18/19 19:01 06:35 POC Glucose 166 H 260 H MAR and labs were reviewed by me EKG Reviewed by me: Yes (Telemetry: NSR) Hospitalist ROS - Review of Systems Constitutional: reports: weakness Respiratory: reports: cough, dry, SOB with excertion. denies: shortness of breath, pleuritic pain, wheezing Cardiovascular: denies: chest pain, palpitations, orthopnea, paroxysmal noc. dyspnea, edema, light headedness - Medication Medications: Active Medications Generic Name Dose Route Start Last Admin Trade Name Freq PRN Reason Stop Dose Admin Acetaminophen 650 mg 10/08/19 05:45 10/18/19 20:32 Tylenol PO 650 mg Q4H PRN Administration Headache/Fever/Mild Pain (1-3) Alprazolam 0.25 mg 10/11/19 00:41 10/18/19 20:33 Xanax PO 0.25 mg QIDPRN PRN Administration Anxiety Amlodipine Besylate 10 mg 10/15/19 09:00 10/19/19 09:56 Norvasc PO 10 mg DAILY KAYLIE Administration Ascorbic Acid 1,000 mg 10/14/19 09:00 10/19/19 09:58 Vitamin C PO 1,000 mg DAILY KAYLIE Administration Bisacodyl 10 mg 10/08/19 05:45 10/14/19 20:17 Dulcolax PO 10 mg DAILYPRN PRN Administration Constipation Dextrose/Water 25 gm 10/09/19 20:14 10/16/19 07:40 Dextrose 50% SLOW IVP 25 gm PRN PRN Administration Hypoglycemia Enoxaparin Sodium 60 mg 10/08/19 21:00 10/19/19 09:58 Lovenox SC 60 mg 0900,2100 KAYLIE Administration Famotidine 20 mg 10/08/19 09:00 10/19/19 09:58 Pepcid PO 20 mg BID KAYLIE Administration Insulin Human Lispro 0 units 10/18/19 17:10 10/19/19 13:31 Humalog SC 2 unit .MODERATE SLIDING SC PRN Administration Moderate Correctional Scale Iron/Minerals/Multivitamins 1 tab 10/09/19 09:00 10/19/19 10:01 Theragran M PO 1 tab DAILY KAYLIE Administration Latanoprost 1 drop 10/08/19 21:00 10/18/19 20:49 Xalatan 0.005% Ophth Soln EA EYE 1 drop HS KAYLIE Administration Lisinopril 20 mg 10/16/19 07:00 10/19/19 09:59 Zestril PO 20 mg DAILY KAYLIE Administration Metformin HCl 1,000 mg 10/19/19 08:00 10/19/19 09:57 Glucophage PO 1,000 mg BID-WM KAYLIE Administration Methylprednisolone Sodium Succinate 80 mg 10/13/19 21:00 10/19/19 09:59 Solu-Medrol IVP 80 mg Q12HR KAYLIE Administration Mometasone Furoate 200 mcg 10/12/19 18:30 10/19/19 06:23 Asmanex Hfa 100 Mcg INH 2 puff BID-RT KAYLIE Administration Morphine Sulfate 2 mg 10/11/19 00:40 10/16/19 23:07 Morphine SLOW IVP 2 mg Q1H PRN Administration Pain Ondansetron HCl 4 mg 10/08/19 05:44 10/15/19 17:15 Zofran IVP 4 mg Q6H PRN Administration Nausea/Vomiting, use 1st Sodium Chloride 10 ml 10/08/19 09:00 10/19/19 10:01 Flush - Normal Saline IVF 10 ml Q12HR KAYLIE Administration Sodium Chloride 10 ml 10/08/19 06:34 10/09/19 05:27 Flush - Normal Saline IVF 10 ml PRN PRN Administration Saline Flush Venlafaxine HCl 75 mg 10/08/19 21:00 10/19/19 10:01 Effexor PO 75 mg BID KAYLIE Administration Zinc Sulfate 220 mg 10/09/19 09:00 10/19/19 10:01 Zinc Sulfate PO 220 mg DAILY KAYLIE Administration - Exam General Appearance: awake alert General - other findings: Obesity Eye: anicteric sclera ENT: normocephalic atraumatic Neck: supple Heart: RRR Respiratory: CTAB Gastrointestinal: soft, non-tender Extremities: no cyanosis Psychiatric: normal affect, normal behavior Hosp A/P - Plan - Plan #covid pneumonia #ARDS Patient on high flow oxygen, receiving steroids and #HTN Stable #T2DM Blood sugars are elevated today. Switch to aggressive insulin sliding scale. #anxiety Continue venlafaxine
[2019-10-19] MEDS ORDERED: Nystatin 100,000 Units/mL UDCUP SSW SCH (18:15)
[2019-10-19] MEDS ORDERED: Nystatin 500,000 UNITS/5 ML UDCUP SSW SCH ×3 (18:30→21:00)
[2019-10-19] MEDS: ALPRAZolam 0.25 MG TAB PO PRN (20:39)
[2019-10-19] MEDS: Nystatin 500,000 UNITS/5 ML UDCUP SSW SCH (20:39)
[2019-10-19] MEDS: Latanoprost 0.005% Ophth Soln 2.5 ml Bottle EA EYE SCH (20:41)
[2019-10-20 03:40] LABS: #Lymphocytes 0.6 thou/uL (1.20-3.40); #Monocytes 0.3 thou/uL (0.11-0.59); #Neutrophils 13.9 thou/uL (1.40-6.50); %Eosinophils 0.2 % (0.0-10.0); %Lymphocytes 4.3 % (21.0-51.0); %Monocytes 1.8 % (0.0-10.0); %Neutrophils 93.7 % (42.0-75.0); Hemoglobin 14.9 g/dL (12.0-16.0); Mean Corpuscular HGB CONC 33.1 g/dL (32.0-36.0); Mean Corpuscular Hemoglobin 31.6 pg (27.0-31.0); Mean Corpuscular Volume 95.3 fL (78.0-98.0); Mean Platelet Volume 6.9 fL (7.4-10.4); Platelet Count 408 thou/uL (130-400); RBC Distribution Width 11.9 % (11.5-14.5); Red Blood Cell (RBC) Count 4.71 mill/uL (4.20-5.40); White Blood Cell (WBC) Count 14.8 thou/uL (4.8-10.8)
[2019-10-20 03:58] LABS: Anion Gap 11 mmol/L (10-20); BUN (Urea Nitrogen) 20 mg/dL (9.8-20.1); Calc. Creatinine Clearance 83 mL/min (70-130); Calcium 8.9 mg/dL (7.8-10.44); Carbon Dioxide 31 mmol/L (23-31); Chloride 98 mmol/L (98-107); Estimated GFR-MDRD 77; Glucose 239 mg/dL (83-110); Potassium 4.9 mmol/L (3.5-5.1); Sodium 135 mmol/L (136-145)
[2019-10-20] MEDS: HumaLOG 300 UNITS/3 ML VIAL SC PRN (06:10)
[2019-10-20] MEDS: Mometasone 100 MCG/PUFF (1 INHALER) INH SCH ×2 (07:05→17:32)
--- NOTE | 2019-10-20 09:54 | PRG ---
DATE OF SERVICE: 10/20/2019 SUBJECTIVE: The patient is doing relatively well all things considered. She remains in good spirits. She is on high-flow nasal cannula at 60 L/minute with FiO2 of 50%. OBJECTIVE: VITAL SIGNS: Temperature 98.2, pulse 84, blood pressure 128/69, and O2 saturation 96%. HEENT: Unremarkable. NECK: No adenopathy or JVD. LUNGS: Fairly clear. CARDIAC: S1 and S2, regular. ABDOMEN: Soft. EXTREMITIES: No edema. LABORATORY DATA: Sodium 135, potassium 4.9, BUN 20, creatinine 0.7, and glucose 239. White blood cell count 14.8, hematocrit 44.9, and platelet count 409. ASSESSMENT: COVID-19 pneumonia with acute hypoxic respiratory failure requiring high-flow oxygen. PLAN: Continue high-dose steroids, inhaled steroids, and high-flow nasal cannula. I anticipate her being in the hospital for at least 2 more weeks. Job ID: [id number]
[2019-10-20] MEDS: Enoxaparin Sodium 60 MG/0.6 ML SYRINGE SC SCH ×2 (09:59→20:23)
[2019-10-20] MEDS: Nystatin 500,000 UNITS/5 ML UDCUP SSW SCH ×4 (09:59→20:24)
[2019-10-20] MEDS: methylPREDNISolone Sod Succ/PF 125 MG/2 ML VIAL IVP SCH ×2 (10:00→20:23)
[2019-10-20] MEDS: Ascorbic Acid 500 mg Chewable Tablet PO SCH (10:00)
[2019-10-20] MEDS: Famotidine 20 MG TAB PO SCH ×2 (10:00→20:24)
[2019-10-20] MEDS: Lisinopril 20 MG TAB PO SCH (10:00)
[2019-10-20] MEDS: Multivitamin W/ Minerals 1 TAB PO SCH (10:00)
[2019-10-20] MEDS: Amlodipine 10 MG TAB PO SCH (10:01)
[2019-10-20] MEDS: metFORMIN 500 MG TAB PO SCH ×2 (10:01→17:31)
[2019-10-20] MEDS: Zinc Sulfate 220 MG CAP PO SCH (10:03)
[2019-10-20] MEDS: ALPRAZolam 0.25 MG TAB PO PRN (18:07)
--- NOTE | 2019-10-20 19:01 | PDOC.HOSPP ---
- Subjective Encounter Date: 10/20/19 Encounter Time: 17:00 Subjective: Pt seen for followup for pneumonia from COVID 19 infection. Reports generalized weakness. - Objective Vital Signs & Weight: Vital Signs (12 hours) Temp Pulse BP Pulse Ox 10/20/19 16:00 98.4 F 10/20/19 12:00 98.4 F 10/20/19 10:01 91 10/20/19 10:00 135/99 H 10/20/19 08:28 93 L 10/20/19 08:00 98.2 F 92 L Weight Admit Weight 170 lb 3.2 oz Weight 170 lb 3.2 oz Most Recent Monitor Data Heart Rate from ECG 93 NIBP 146/73 NIBP BP-Mean 97 Respiration from ECG 22 SpO2 90 I&O: 10/19/19 10/20/19 10/21/19 06:59 06:59 06:59 Intake Total 790 1180 770 Output Total 600 400 400 Balance 190 780 370 Result Diagrams: 10/20/19 03:15 10/20/19 03:14 Additional Labs: Accuchecks 10/20/19 10/19/19 06:06 20:49 POC Glucose 219 H 159 H Labs and MAR were reviewed by me EKG Reviewed by me: Yes (Telemetry: NSR) Hospitalist ROS - Review of Systems Constitutional: reports: weakness Respiratory: reports: cough, dry Skin: denies: rash, lesions, cliff, bruising - Medication Medications: Active Medications Generic Name Dose Route Start Last Admin Trade Name Freq PRN Reason Stop Dose Admin Acetaminophen 650 mg 10/08/19 05:45 10/18/19 20:32 Tylenol PO 650 mg Q4H PRN Administration Headache/Fever/Mild Pain (1-3) Alprazolam 0.25 mg 10/11/19 00:41 10/20/19 18:07 Xanax PO 0.25 mg QIDPRN PRN Administration Anxiety Amlodipine Besylate 10 mg 10/15/19 09:00 10/20/19 10:01 Norvasc PO 10 mg DAILY KAYLIE Administration Ascorbic Acid 1,000 mg 10/14/19 09:00 10/20/19 10:00 Vitamin C PO 1,000 mg DAILY KAYLIE Administration Bisacodyl 10 mg 10/08/19 05:45 10/14/19 20:17 Dulcolax PO 10 mg DAILYPRN PRN Administration Constipation Dextrose/Water 25 gm 10/09/19 20:14 10/16/19 07:40 Dextrose 50% SLOW IVP 25 gm PRN PRN Administration Hypoglycemia Enoxaparin Sodium 60 mg 10/08/19 21:00 10/20/19 09:59 Lovenox SC 60 mg 0900,2100 KAYLIE Administration Famotidine 20 mg 10/08/19 09:00 10/20/19 10:00 Pepcid PO 20 mg BID KAYLIE Administration Insulin Human Lispro 0 units 10/19/19 16:47 10/20/19 06:10 Humalog SC 6 unit .AGGRESSIVE SLIDING PRN Administration Aggressive Correctional Scale Iron/Minerals/Multivitamins 1 tab 10/09/19 09:00 10/20/19 10:00 Theragran M PO 1 tab DAILY KAYLIE Administration Latanoprost 1 drop 10/08/19 21:00 10/19/19 20:41 Xalatan 0.005% Ophth Soln EA EYE 1 drop HS KAYLIE Administration Lisinopril 20 mg 10/16/19 07:00 10/20/19 10:00 Zestril PO 20 mg DAILY KAYLIE Administration Metformin HCl 1,000 mg 10/19/19 08:00 10/20/19 17:31 Glucophage PO 1,000 mg BID-WM KAYLIE Administration Methylprednisolone Sodium Succinate 80 mg 10/13/19 21:00 10/20/19 10:00 Solu-Medrol IVP 80 mg Q12HR KAYLIE Administration Mometasone Furoate 200 mcg 10/12/19 18:30 10/20/19 17:32 Asmanex Hfa 100 Mcg INH 2 puff BID-RT KAYLIE Administration Morphine Sulfate 2 mg 10/11/19 00:40 10/16/19 23:07 Morphine SLOW IVP 2 mg Q1H PRN Administration Pain Nystatin 500,000 units 10/19/19 21:00 10/20/19 17:31 Mycostatin SSW 500,000 units QID KAYLIE Administration Ondansetron HCl 4 mg 10/08/19 05:44 10/15/19 17:15 Zofran IVP 4 mg Q6H PRN Administration Nausea/Vomiting, use 1st Sodium Chloride 10 ml 10/08/19 09:00 10/20/19 10:01 Flush - Normal Saline IVF 10 ml Q12HR KAYLIE Administration Sodium Chloride 10 ml 10/08/19 06:34 10/09/19 05:27 Flush - Normal Saline IVF 10 ml PRN PRN Administration Saline Flush Venlafaxine HCl 75 mg 10/08/19 21:00 10/20/19 10:01 Effexor PO 75 mg BID KAYLIE Administration Zinc Sulfate 220 mg 10/09/19 09:00 10/20/19 10:03 Zinc Sulfate PO 220 mg DAILY KAYLIE Administration - Exam General - other findings: Obese Eye: anicteric sclera ENT: normocephalic atraumatic Neck: supple Heart: RRR Respiratory: CTAB Gastrointestinal: non-tender Extremities: no cyanosis Psychiatric: normal affect, normal behavior Hosp A/P - Plan - Plan #covid pneumonia #ARDS Patient is still on high flow oxygen, continue steroids #HTN Stable #T2DM Blood sugars are elevated today. Continue aggressive insulin sliding scale. Start Lantus insulin 5 units at bedtime. #anxiety Continue venlafaxine
[2019-10-20] MEDS: Latanoprost 0.005% Ophth Soln 2.5 ml Bottle EA EYE SCH (20:21)
[2019-10-20] MEDS ORDERED: Insulin Glargine 5 UNITS in Pre-Filled Syringe 1 EACH SC SCH (21:00)
[2019-10-21 03:43] LABS: #Lymphocytes 0.6 thou/uL (1.20-3.40); #Monocytes 0.4 thou/uL (0.11-0.59); #Neutrophils 13.9 thou/uL (1.40-6.50); %Basophils 0.1 % (0.0-1.0); %Eosinophils 0.1 % (0.0-10.0); %Lymphocytes 4.1 % (21.0-51.0); %Monocytes 2.4 % (0.0-10.0); %Neutrophils 93.3 % (42.0-75.0); Hemoglobin 15.9 g/dL (12.0-16.0); Mean Corpuscular HGB CONC 32.9 g/dL (32.0-36.0); Mean Corpuscular Hemoglobin 31.3 pg (27.0-31.0); Mean Corpuscular Volume 95.3 fL (78.0-98.0); Mean Platelet Volume 7.1 fL (7.4-10.4); Platelet Count 393 thou/uL (130-400); Red Blood Cell (RBC) Count 5.07 mill/uL (4.20-5.40); White Blood Cell (WBC) Count 14.9 thou/uL (4.8-10.8)
[2019-10-21 04:01] LABS: Glucose 229 mg/dL (83-110)
[2019-10-21 04:03] LABS: Carbon Dioxide 20 mmol/L (23-31)
[2019-10-21 04:05] LABS: BUN (Urea Nitrogen) 23 mg/dL (9.8-20.1); Calc. Creatinine Clearance 94 mL/min (70-130); Estimated GFR-MDRD 89
[2019-10-21 04:56] LABS: Chloride 104 mmol/L (98-107); Potassium 4.8 mmol/L (3.5-5.1); Sodium 137 mmol/L (136-145)
[2019-10-21 04:57] LABS: Calcium 8.6 mg/dL (7.8-10.44)
[2019-10-21 04:59] LABS: Anion Gap 21 mmol/L (10-20)
[2019-10-21] MEDS: Mometasone 100 MCG/PUFF (1 INHALER) INH SCH ×2 (06:14→17:10)
[2019-10-21] MEDS: HumaLOG 300 UNITS/3 ML VIAL SC PRN ×2 (06:21→17:24)
[2019-10-21] MEDS: methylPREDNISolone Sod Succ/PF 125 MG/2 ML VIAL IVP SCH ×2 (08:45→21:19)
[2019-10-21] MEDS: Nystatin 500,000 UNITS/5 ML UDCUP SSW SCH ×4 (08:45→21:18)
[2019-10-21] MEDS: Enoxaparin Sodium 60 MG/0.6 ML SYRINGE SC SCH ×2 (08:45→21:18)
[2019-10-21] MEDS: Lisinopril 20 MG TAB PO SCH (08:46)
[2019-10-21] MEDS: metFORMIN 500 MG TAB PO SCH ×2 (08:46→17:10)
[2019-10-21] MEDS: Amlodipine 10 MG TAB PO SCH (08:46)
[2019-10-21] MEDS: Zinc Sulfate 220 MG CAP PO SCH (08:46)
[2019-10-21] MEDS: Ascorbic Acid 500 mg Chewable Tablet PO SCH (08:46)
[2019-10-21] MEDS: Multivitamin W/ Minerals 1 TAB PO SCH (08:46)
[2019-10-21] MEDS: Famotidine 20 MG TAB PO SCH ×2 (08:46→21:18)
--- NOTE | 2019-10-21 09:10 | PRG ---
DATE OF SERVICE: 10/21/2019 SUBJECTIVE: The patient is doing about the same. Still requiring high-flow nasal cannula. Desaturates very easily when she gets up. OBJECTIVE: VITAL SIGNS: On exam, temperature 98.4, pulse 90, blood pressure 134/70, and O2 saturation 95% on high-flow nasal cannula until she got up and desaturated down to 68%. HEENT: Unremarkable. NECK: No JVD. LUNGS: Inspiratory crackles. CARDIAC: S1 and S2. Regular. ABDOMEN: Soft. EXTREMITIES: No edema. LABORATORY DATA: White blood cell count 14.9, hematocrit 48.3, and platelet count 383. Sodium 137, potassium 4.8, BUN 23, creatinine 0.6, and glucose 229. ASSESSMENT: COVID-19 pneumonia with hypoxic respiratory failure. PLAN: Continue high-dose steroids and wean oxygen as tolerated. Job ID: [id number]
[2019-10-21] MEDS ORDERED: Simethicone 40 MG/0.6 ML Drop 30 ML BOT PO PRN (12:42)
--- NOTE | 2019-10-21 17:34 | PDOC.HOSPP ---
- Subjective Encounter Date: 10/21/19 Encounter Time: 16:00 Subjective: Patient seen for follow-up regarding COVID-19 pneumonia. States she feels better. Complains of bloating sensation in the abdomen. - Objective Vital Signs & Weight: Vital Signs (12 hours) Temp Pulse Pulse Pulse BP BP BP 10/21/19 16:00 98.7 F 10/21/19 13:20 108 H 105 H 106/62 124/46 L 10/21/19 12:00 98.9 F 10/21/19 08:46 91 135/99 H 10/21/19 08:00 98.4 F 10/21/19 07:20 Pulse Ox Pulse Ox Pulse Ox Pulse Ox 10/21/19 16:00 10/21/19 13:20 97 74 L 91 L 10/21/19 12:00 10/21/19 08:46 10/21/19 08:00 10/21/19 07:20 93 L Weight Admit Weight 170 lb 3.2 oz Weight 170 lb 3.2 oz Most Recent Monitor Data Heart Rate from ECG 97 NIBP 110/53 NIBP BP-Mean 72 Respiration from ECG 26 SpO2 93 I&O: 10/20/19 10/21/19 10/22/19 06:59 06:59 06:59 Intake Total 1180 940 Output Total 400 850 Balance 780 90 Result Diagrams: 10/21/19 03:17 10/21/19 03:17 Additional Labs: Accuchecks 10/21/19 10/20/19 10/20/19 06:24 20:32 20:32 POC Glucose 166 H 170 H 170 H 10/20/19 10/20/19 17:57 11:36 POC Glucose 169 H 157 H Labs and MAR was reviewed by me EKG Reviewed by me: Yes (Telemetry: Normal sinus rhythm) Hospitalist ROS - Review of Systems Respiratory: reports: SOB with excertion Cardiovascular: denies: chest pain, palpitations, orthopnea, paroxysmal noc. dyspnea, edema, light headedness Gastrointestinal: reports: other (Abdominal bloating). denies: nausea, vomiting , diarrhea, constipation, melena, hematochezia - Medication Medications: Active Medications Generic Name Dose Route Start Last Admin Trade Name Freq PRN Reason Stop Dose Admin Acetaminophen 650 mg 10/08/19 05:45 10/18/19 20:32 Tylenol PO 650 mg Q4H PRN Administration Headache/Fever/Mild Pain (1-3) Amlodipine Besylate 10 mg 10/15/19 09:00 10/21/19 08:46 Norvasc PO 10 mg DAILY KAYLIE Administration Ascorbic Acid 1,000 mg 10/14/19 09:00 10/21/19 08:46 Vitamin C PO 1,000 mg DAILY KAYLIE Administration Bisacodyl 10 mg 10/08/19 05:45 10/14/19 20:17 Dulcolax PO 10 mg DAILYPRN PRN Administration Constipation Dextrose/Water 25 gm 10/09/19 20:14 10/16/19 07:40 Dextrose 50% SLOW IVP 25 gm PRN PRN Administration Hypoglycemia Enoxaparin Sodium 60 mg 10/08/19 21:00 10/21/19 08:45 Lovenox SC 60 mg 09,2100 KAYLIE Administration Famotidine 20 mg 10/08/19 09:00 10/21/19 08:46 Pepcid PO 20 mg BID KAYLIE Administration Insulin Glargine 5 units/ 0.05 mls @ 0 mls/hr 10/20/19 21:00 10/20/19 20:23 Miscellaneous Medication SC 0.05 mls HS KAYLIE Administration Insulin Human Lispro 0 units 10/19/19 16:47 10/21/19 17:24 Humalog SC 6 unit .AGGRESSIVE SLIDING PRN Administration Aggressive Correctional Scale Iron/Minerals/Multivitamins 1 tab 10/09/19 09:00 10/21/19 08:46 Theragran M PO 1 tab DAILY KAYLIE Administration Latanoprost 1 drop 10/08/19 21:00 10/20/19 20:21 Xalatan 0.005% Ophth Soln EA EYE 1 drop HS KAYLIE Administration Lisinopril 20 mg 10/16/19 07:00 10/21/19 08:46 Zestril PO 20 mg DAILY KAYLIE Administration Metformin HCl 1,000 mg 10/19/19 08:00 10/21/19 17:10 Glucophage PO 1,000 mg BID-WM KAYLIE Administration Methylprednisolone Sodium Succinate 80 mg 10/13/19 21:00 10/21/19 08:45 Solu-Medrol IVP 80 mg Q12HR KAYLIE Administration Mometasone Furoate 200 mcg 10/12/19 18:30 10/21/19 17:10 Asmanex Hfa 100 Mcg INH 2 puff BID-RT KAYLIE Administration Nystatin 500,000 units 10/19/19 21:00 10/21/19 17:09 Mycostatin SSW 500,000 units QID KAYLIE Administration Ondansetron HCl 4 mg 10/08/19 05:44 10/15/19 17:15 Zofran IVP 4 mg Q6H PRN Administration Nausea/Vomiting, use 1st Simethicone 80 mg 10/21/19 12:42 10/21/19 16:15 Mylicon Drops 40 Mg/0.6ml Drop PO 80 mg QID PRN Administration Gas Pain Sodium Chloride 10 ml 10/08/19 09:00 10/21/19 08:48 Flush - Normal Saline IVF 10 ml Q12HR KAYLIE Administration Sodium Chloride 10 ml 10/08/19 06:34 10/09/19 05:27 Flush - Normal Saline IVF 10 ml PRN PRN Administration Saline Flush Venlafaxine HCl 75 mg 10/08/19 21:00 10/21/19 08:46 Effexor PO 75 mg BID KAYLIE Administration Zinc Sulfate 220 mg 10/09/19 09:00 10/21/19 08:46 Zinc Sulfate PO 220 mg DAILY KAYLIE Administration - Exam General Appearance: awake alert General - other findings: Obese Eye: anicteric sclera ENT: normocephalic atraumatic, moist mucosa Neck: supple Heart: RRR Respiratory: CTAB Gastrointestinal: soft, non-tender Skin: no rashes Psychiatric: normal affect, normal behavior Hosp A/P - Plan - Plan #covid pneumonia #ARDS Patient is still on high flow oxygen, continue steroids Appears to have slightly improved since yesterday. #HTN Stable #T2DM Blood sugars are elevated today. Continue aggressive insulin sliding scale. Increase Lantus to 7 units at bedtime #anxiety Continue venlafaxine Trial simethicone.
[2019-10-21] MEDS ORDERED: Insulin Glargine 7 UNITS in Pre-Filled Syringe 1 EACH SC SCH (21:00)
[2019-10-21] MEDS: diphenhydrAMINE 25 MG CAP PO PRN (21:19)
[2019-10-21] MEDS: Latanoprost 0.005% Ophth Soln 2.5 ml Bottle EA EYE SCH (21:56)
[2019-10-22 04:36] LABS: #Lymphocytes 0.7 thou/uL (1.20-3.40); #Monocytes 0.2 thou/uL (0.11-0.59); #Neutrophils 14.3 thou/uL (1.40-6.50); %Basophils 0.1 % (0.0-1.0); %Eosinophils 0.1 % (0.0-10.0); %Lymphocytes 4.4 % (21.0-51.0); %Monocytes 1.6 % (0.0-10.0); %Neutrophils 93.7 % (42.0-75.0); Hemoglobin 15.5 g/dL (12.0-16.0); Mean Corpuscular HGB CONC 32.5 g/dL (32.0-36.0); Mean Corpuscular Hemoglobin 30.8 pg (27.0-31.0); Mean Corpuscular Volume 94.7 fL (78.0-98.0); Platelet Count 395 thou/uL (130-400); RBC Distribution Width 11.9 % (11.5-14.5); Red Blood Cell (RBC) Count 5.05 mill/uL (4.20-5.40); White Blood Cell (WBC) Count 15.2 thou/uL (4.8-10.8)
[2019-10-22 04:44] LABS: Anion Gap 15 mmol/L (10-20); BUN (Urea Nitrogen) 26 mg/dL (9.8-20.1); Calc. Creatinine Clearance 94 mL/min (70-130); Calcium 8.7 mg/dL (7.8-10.44); Carbon Dioxide 24 mmol/L (23-31); Chloride 101 mmol/L (98-107); Estimated GFR-MDRD 89; Glucose 222 mg/dL (83-110); Sodium 135 mmol/L (136-145)
[2019-10-22] MEDS: HumaLOG 300 UNITS/3 ML VIAL SC PRN (05:54)
[2019-10-22] MEDS: Mometasone 100 MCG/PUFF (1 INHALER) INH SCH ×2 (06:05→17:22)
[2019-10-22] MEDS: Enoxaparin Sodium 60 MG/0.6 ML SYRINGE SC SCH ×2 (08:02→21:22)
[2019-10-22] MEDS: methylPREDNISolone Sod Succ/PF 125 MG/2 ML VIAL IVP SCH ×2 (08:03→21:24)
[2019-10-22] MEDS: Nystatin 500,000 UNITS/5 ML UDCUP SSW SCH ×4 (08:03→21:24)
[2019-10-22] MEDS: Famotidine 20 MG TAB PO SCH ×2 (08:04→21:24)
[2019-10-22] MEDS: Lisinopril 20 MG TAB PO SCH (08:05)
[2019-10-22] MEDS: metFORMIN 500 MG TAB PO SCH ×2 (08:05→17:21)
[2019-10-22] MEDS: Ascorbic Acid 500 mg Chewable Tablet PO SCH (08:05)
[2019-10-22] MEDS: Zinc Sulfate 220 MG CAP PO SCH (08:06)
[2019-10-22] MEDS: Amlodipine 10 MG TAB PO SCH (08:06)
[2019-10-22] MEDS: Multivitamin W/ Minerals 1 TAB PO SCH (08:06)
--- NOTE | 2019-10-22 09:40 | PRG ---
DATE OF SERVICE: 10/22/2019 SUBJECTIVE: The patient is doing a little better. She states she feels stronger. OBJECTIVE: VITAL SIGNS: Temperature 98.4, pulse 108, blood pressure 149/68. She is on high-flow nasal cannula at about 50%, her O2 saturations were in the mid 90s. HEENT: Unremarkable. NECK: No adenopathy or JVD. LUNGS: Clear anteriorly. CARDIAC: S1, S2. Regular. ABDOMEN: Soft. EXTREMITIES: No edema. LABORATORY DATA: Sodium 135, potassium 5, chloride 101, CO2 of 24, BUN 26, creatinine 0.6, and glucose 222. White blood cell count 15, hematocrit 47.8, and platelet count 395. ASSESSMENT: COVID-19 pneumonia with acute hypoxic respiratory failure. PLAN: Continue anticoagulation. High-dose steroids. Wean oxygen as tolerated. Job ID: [id number]
--- NOTE | 2019-10-22 17:24 | PDOC.HOSPP ---
- Subjective Encounter Date: 10/22/19 Encounter Time: 14:30 Subjective: Patient seen for COVID-19 pneumonia in follow-up. She reports diarrhea. She denies any chest pain. - Objective Vital Signs & Weight: Vital Signs (12 hours) Temp Pulse Pulse BP BP Pulse Ox Pulse Ox 10/22/19 16:00 98.9 F 10/22/19 14:15 93 130/75 92 L 10/22/19 12:00 98.2 F 10/22/19 08:06 91 135/99 H 10/22/19 08:05 135/99 H 10/22/19 08:00 98.4 F 10/22/19 07:35 93 L Pulse Ox 10/22/19 16:00 10/22/19 14:15 92 L 10/22/19 12:00 10/22/19 08:06 10/22/19 08:05 10/22/19 08:00 10/22/19 07:35 Weight Admit Weight 170 lb 3.2 oz Weight 170 lb 3.2 oz Most Recent Monitor Data Heart Rate from ECG 95 NIBP 108/60 NIBP BP-Mean 76 Respiration from ECG 23 SpO2 96 I&O: 10/21/19 10/22/19 10/23/19 06:59 06:59 06:59 Intake Total 940 1150 Output Total 850 350 Balance 90 800 Result Diagrams: 10/22/19 04:03 10/22/19 04:03 Additional Labs: Accuchecks 10/22/19 10/22/19 10/21/19 12:26 06:06 21:31 POC Glucose 208 H 198 H 122 H 10/21/19 10/21/19 10/21/19 17:54 17:22 12:35 POC Glucose 299 H 207 H 202 H Labs and MARs reviewed by me EKG Reviewed by me: Yes (Tele: NSR) Hospitalist ROS - Review of Systems Respiratory: reports: cough, dry, SOB with excertion. denies: shortness of breath, hemoptysis, pleuritic pain, sputum, wheezing Gastrointestinal: reports: diarrhea. denies: nausea, vomiting, abdominal pain, constipation, melena, hematochezia - Medication Medications: Active Medications Generic Name Dose Route Start Last Admin Trade Name Freq PRN Reason Stop Dose Admin Acetaminophen 650 mg 10/08/19 05:45 10/18/19 20:32 Tylenol PO 650 mg Q4H PRN Administration Headache/Fever/Mild Pain (1-3) Amlodipine Besylate 10 mg 10/15/19 09:00 10/22/19 08:06 Norvasc PO 10 mg DAILY KAYLIE Administration Ascorbic Acid 1,000 mg 10/14/19 09:00 10/22/19 08:05 Vitamin C PO 1,000 mg DAILY KAYLIE Administration Bisacodyl 10 mg 10/08/19 05:45 10/14/19 20:17 Dulcolax PO 10 mg DAILYPRN PRN Administration Constipation Dextrose/Water 25 gm 10/09/19 20:14 10/16/19 07:40 Dextrose 50% SLOW IVP 25 gm PRN PRN Administration Hypoglycemia Diphenhydramine HCl 25 mg 10/21/19 16:19 10/21/19 21:19 Benadryl PO 25 mg HSPRN PRN Administration Itching & Insomnia Enoxaparin Sodium 60 mg 10/08/19 21:00 10/22/19 08:02 Lovenox SC 60 mg 0900,2100 KAYLIE Administration Famotidine 20 mg 10/08/19 09:00 10/22/19 08:04 Pepcid PO 20 mg BID KAYLIE Administration Insulin Glargine 7 units/ 0.07 mls @ 0 mls/hr 10/21/19 21:00 10/21/19 22:03 Miscellaneous Medication SC Not Given HS ON LICENSE OF [facility] Insulin Human Lispro 0 units 10/19/19 16:47 10/22/19 05:54 Humalog SC 3 unit .AGGRESSIVE SLIDING PRN Administration Aggressive Correctional Scale Iron/Minerals/Multivitamins 1 tab 10/09/19 09:00 10/22/19 08:06 Theragran M PO 1 tab DAILY ON LICENSE OF [facility] Administration Latanoprost 1 drop 10/08/19 21:00 10/21/19 21:56 Xalatan 0.005% Ophth Soln EA EYE 1 drop HS KAYLIE Administration Lisinopril 20 mg 10/16/19 07:00 10/22/19 08:05 Zestril PO 20 mg DAILY KAYLIE Administration Metformin HCl 1,000 mg 10/19/19 08:00 10/22/19 08:05 Glucophage PO 1,000 mg BID-WM KAYLIE Administration Methylprednisolone Sodium Succinate 80 mg 10/13/19 21:00 10/22/19 08:03 Solu-Medrol IVP 80 mg Q12HR KAYLIE Administration Mometasone Furoate 200 mcg 10/12/19 18:30 10/22/19 06:05 Asmanex Hfa 100 Mcg INH 2 puff BID-RT KAYLIE Administration Nystatin 500,000 units 10/19/19 21:00 10/22/19 13:30 Mycostatin SSW 500,000 units QID KAYLIE Administration Ondansetron HCl 4 mg 10/08/19 05:44 10/15/19 17:15 Zofran IVP 4 mg Q6H PRN Administration Nausea/Vomiting, use 1st Simethicone 80 mg 10/21/19 12:42 10/21/19 16:15 Mylicon Drops 40 Mg/0.6ml Drop PO 80 mg QID PRN Administration Gas Pain Sodium Chloride 10 ml 10/08/19 09:00 10/22/19 08:06 Flush - Normal Saline IVF 10 ml Q12HR KAYLIE Administration Sodium Chloride 10 ml 10/08/19 06:34 10/09/19 05:27 Flush - Normal Saline IVF 10 ml PRN PRN Administration Saline Flush Venlafaxine HCl 75 mg 10/08/19 21:00 10/22/19 08:06 Effexor PO 75 mg BID KAYLIE Administration Zinc Sulfate 220 mg 10/09/19 09:00 10/22/19 08:06 Zinc Sulfate PO 220 mg DAILY KAYLIE Administration - Exam General Appearance: awake alert Eye: anicteric sclera ENT: moist mucosa Neck: supple, symmetric Heart: RRR Respiratory: CTAB Gastrointestinal: soft, non-tender, non-distended, normal bowel sounds Extremities: no cyanosis Psychiatric: normal affect, normal behavior Hosp A/P - Plan - Plan #covid pneumonia #ARDS -Patient is on high flow oxygen -continue steroids #HTN Stable #T2DM Blood sugars continue to be elevated. Increase Lantus to 9 units at bedtime Continue aggressive insulin sliding scale. #anxiety Continue venlafaxine Abdominal bloating improved with simethicone. Check stool for c. diff.
[2019-10-22] MEDS: PRE FILLED SC SCH (21:23)
[2019-10-22] MEDS: INSULIN GLARGINE SC SCH (21:23)
[2019-10-22] MEDS: Acetaminophen 325 MG TAB PO PRN (21:24)
[2019-10-22] MEDS: Latanoprost 0.005% Ophth Soln 2.5 ml Bottle EA EYE SCH (21:24)
[2019-10-22] MEDS: diphenhydrAMINE 25 MG CAP PO PRN (21:24)
[2019-10-23 03:23] LABS: #Lymphocytes 0.6 thou/uL (1.20-3.40); #Monocytes 0.2 thou/uL (0.11-0.59); #Neutrophils 13.2 thou/uL (1.40-6.50); %Basophils 0.1 % (0.0-1.0); %Eosinophils 0.2 % (0.0-10.0); %Lymphocytes 4.5 % (21.0-51.0); %Monocytes 1.2 % (0.0-10.0); Hemoglobin 15.8 g/dL (12.0-16.0); Mean Corpuscular Hemoglobin 31.3 pg (27.0-31.0); Mean Corpuscular Volume 94.9 fL (78.0-98.0); Mean Platelet Volume 7.1 fL (7.4-10.4); Platelet Count 346 thou/uL (130-400); Red Blood Cell (RBC) Count 5.06 mill/uL (4.20-5.40)
[2019-10-23 03:42] LABS: Anion Gap 12 mmol/L (10-20); BUN (Urea Nitrogen) 28 mg/dL (9.8-20.1); Calc. Creatinine Clearance 90 mL/min (70-130); Calcium 8.6 mg/dL (7.8-10.44); Carbon Dioxide 24 mmol/L (23-31); Chloride 104 mmol/L (98-107); Estimated GFR-MDRD 85; Glucose 241 mg/dL (83-110); Potassium 5.1 mmol/L (3.5-5.1); Sodium 135 mmol/L (136-145)
[2019-10-23] MEDS: HumaLOG 300 UNITS/3 ML VIAL SC PRN ×2 (06:17→17:09)
[2019-10-23] MEDS: Mometasone 100 MCG/PUFF (1 INHALER) INH SCH ×2 (06:22→16:55)
--- NOTE | 2019-10-23 09:32 | PRG ---
DATE OF SERVICE: SUBJECTIVE: The patient is about the same. She remains on high-flow nasal cannula at 40% FiO2, O2 saturations are generally in the low to mid 90s. OBJECTIVE: VITAL SIGNS: Temperature 98.4, pulse 79, blood pressure 117/68. HEENT: Unremarkable. NECK: No adenopathy or JVD. LUNGS: Crackles bilaterally. CARDIAC: S1 and S2, regular. ABDOMEN: Soft. EXTREMITIES: No edema. LABORATORY DATA: White blood cell count 14, hematocrit 48, platelet count 346. Sodium 135, potassium 5.1, chloride 104, CO2 of 24, BUN 28, creatinine 0.6, glucose 241. ASSESSMENT: 1. COVID-19 pneumonia. 2. Very mild hyperkalemia. PLAN: 1. Wean oxygen as tolerated. 2. Continue high-dose steroids. 3. She is approaching day 21 of illness. I think at that point, she can probably be taken out of isolation as long as consistent with hospital protocol. Job ID: [id number]
[2019-10-23] MEDS: methylPREDNISolone Sod Succ/PF 125 MG/2 ML VIAL IVP SCH ×2 (10:01→20:08)
[2019-10-23] MEDS: Multivitamin W/ Minerals 1 TAB PO SCH (10:02)
[2019-10-23] MEDS: Ascorbic Acid 500 mg Chewable Tablet PO SCH (10:02)
[2019-10-23] MEDS: metFORMIN 500 MG TAB PO SCH ×2 (10:02→16:55)
[2019-10-23] MEDS: Nystatin 500,000 UNITS/5 ML UDCUP SSW SCH ×4 (10:02→20:07)
[2019-10-23] MEDS: Enoxaparin Sodium 60 MG/0.6 ML SYRINGE SC SCH ×2 (10:02→20:07)
[2019-10-23] MEDS: Amlodipine 10 MG TAB PO SCH (10:02)
[2019-10-23] MEDS: Famotidine 20 MG TAB PO SCH ×2 (10:02→20:07)
[2019-10-23] MEDS: Lisinopril 20 MG TAB PO SCH (10:05)
[2019-10-23] MEDS: Zinc Sulfate 220 MG CAP PO SCH (10:05)
--- NOTE | 2019-10-23 16:13 | PDOC.HOSPP ---
- Subjective Encounter Date: 10/23/19 Encounter Time: 16:13 Subjective: Pt seen for followup re: pneumonia due to COVID virus. No new complaints today. - Objective Vital Signs & Weight: Vital Signs (12 hours) Temp Pulse BP Pulse Ox 10/23/19 12:00 98.2 F 10/23/19 11:00 98.4 F 10/23/19 10:05 135/99 H 10/23/19 10:02 91 135/99 H 10/23/19 08:00 93 L Weight Admit Weight 170 lb 3.2 oz Weight 170 lb 3.2 oz Most Recent Monitor Data Heart Rate from ECG 111 NIBP 121/59 NIBP BP-Mean 79 Respiration from ECG 27 SpO2 97 I&O: 10/22/19 10/23/19 10/24/19 06:59 06:59 06:59 Intake Total 1150 1180 Output Total 350 150 Balance 800 1030 Result Diagrams: 10/23/19 03:14 10/23/19 03:14 Additional Labs: Accuchecks 10/23/19 10/23/19 10/22/19 12:44 05:52 19:23 POC Glucose 191 H 187 H 146 H 10/22/19 10/22/19 17:20 12:26 POC Glucose 172 H 208 H MAR and bloodwork reviewed by me EKG Reviewed by me: Yes (Tele: NSR) Hospitalist ROS - Review of Systems Constitutional: reports: weakness Respiratory: reports: cough, shortness of breath, SOB with excertion Gastrointestinal: denies: nausea, vomiting, abdominal pain, diarrhea, constipation, melena, hematochezia - Medication Medications: Active Medications Generic Name Dose Route Start Last Admin Trade Name Freq PRN Reason Stop Dose Admin Acetaminophen 650 mg 10/08/19 05:45 10/22/19 21:24 Tylenol PO 650 mg Q4H PRN Administration Headache/Fever/Mild Pain (1-3) Amlodipine Besylate 10 mg 10/15/19 09:00 10/23/19 10:02 Norvasc PO 10 mg DAILY KAYLIE Administration Ascorbic Acid 1,000 mg 10/14/19 09:00 10/23/19 10:02 Vitamin C PO 1,000 mg DAILY KAYLIE Administration Bisacodyl 10 mg 10/08/19 05:45 10/14/19 20:17 Dulcolax PO 10 mg DAILYPRN PRN Administration Constipation Dextrose/Water 25 gm 10/09/19 20:14 10/16/19 07:40 Dextrose 50% SLOW IVP 25 gm PRN PRN Administration Hypoglycemia Diphenhydramine HCl 25 mg 10/21/19 16:19 10/22/19 21:24 Benadryl PO 25 mg HSPRN PRN Administration Itching & Insomnia Enoxaparin Sodium 60 mg 10/08/19 21:00 10/23/19 10:02 Lovenox SC 60 mg 0900,2100 KAYLIE Administration Famotidine 20 mg 10/08/19 09:00 10/23/19 10:02 Pepcid PO 20 mg BID KAYLIE Administration Insulin Glargine 9 units/ 0.09 mls @ 0 mls/hr 10/22/19 21:00 10/22/19 21:23 Miscellaneous Medication SC 0.09 mls HS KAYLIE Administration Insulin Human Lispro 0 units 10/19/19 16:47 10/23/19 06:17 Humalog SC 3 unit .AGGRESSIVE SLIDING PRN Administration Aggressive Correctional Scale Iron/Minerals/Multivitamins 1 tab 10/09/19 09:00 10/23/19 10:02 Theragran M PO 1 tab DAILY KAYLIE Administration Latanoprost 1 drop 10/08/19 21:00 10/22/19 21:24 Xalatan 0.005% Ophth Soln EA EYE 1 drop HS KAYLIE Administration Lisinopril 20 mg 10/16/19 07:00 10/23/19 10:05 Zestril PO 20 mg DAILY KAYLIE Administration Metformin HCl 1,000 mg 10/19/19 08:00 10/23/19 10:02 Glucophage PO 1,000 mg BID-WM KAYLIE Administration Methylprednisolone Sodium Succinate 80 mg 10/13/19 21:00 10/23/19 10:01 Solu-Medrol IVP 80 mg Q12HR KAYLIE Administration Mometasone Furoate 200 mcg 10/12/19 18:30 10/23/19 06:22 Asmanex Hfa 100 Mcg INH 2 puff BID-RT KAYLIE Administration Nystatin 500,000 units 10/19/19 21:00 10/23/19 13:30 Mycostatin SSW 500,000 units QID KAYLIE Administration Ondansetron HCl 4 mg 10/08/19 05:44 10/15/19 17:15 Zofran IVP 4 mg Q6H PRN Administration Nausea/Vomiting, use 1st Simethicone 80 mg 10/21/19 12:42 10/21/19 16:15 Mylicon Drops 40 Mg/0.6ml Drop PO 80 mg QID PRN Administration Gas Pain Sodium Chloride 10 ml 10/08/19 09:00 10/23/19 10:05 Flush - Normal Saline IVF 10 ml Q12HR KAYLIE Administration Sodium Chloride 10 ml 10/08/19 06:34 10/09/19 05:27 Flush - Normal Saline IVF 10 ml PRN PRN Administration Saline Flush Venlafaxine HCl 75 mg 10/08/19 21:00 10/23/19 10:02 Effexor PO 75 mg BID KAYLIE Administration Zinc Sulfate 220 mg 10/09/19 09:00 10/23/19 10:05 Zinc Sulfate PO 220 mg DAILY KAYLIE Administration - Exam General - other findings: Obesity Eye: anicteric sclera ENT: moist mucosa Neck: supple Heart: RRR Respiratory: CTAB Gastrointestinal: soft Skin: no rashes Psychiatric: normal affect, normal behavior Hosp A/P - Plan - Plan #covid pneumonia #ARDS -Continue high flow oxygen -Pt is on steroids #HTN Stable #T2DM Increase lantus to 10 units at bedtime #anxiety Pt is on venlafaxine
[2019-10-23] MEDS: INSULIN GLARGINE SC SCH (20:07)
[2019-10-23] MEDS: diphenhydrAMINE 25 MG CAP PO PRN (20:07)
[2019-10-23] MEDS: PRE FILLED SC SCH (20:07)
[2019-10-23] MEDS: Latanoprost 0.005% Ophth Soln 2.5 ml Bottle EA EYE SCH (20:08)
[2019-10-24 03:37] LABS: #Lymphocytes 0.9 thou/uL (1.20-3.40); #Monocytes 0.3 thou/uL (0.11-0.59); #Neutrophils 12.9 thou/uL (1.40-6.50); %Basophils 0.3 % (0.0-1.0); %Eosinophils 0.3 % (0.0-10.0); %Lymphocytes 6.2 % (21.0-51.0); %Monocytes 2.3 % (0.0-10.0); %Neutrophils 90.9 % (42.0-75.0); Hemoglobin 15.9 g/dL (12.0-16.0); Mean Corpuscular HGB CONC 34.3 g/dL (32.0-36.0); Mean Corpuscular Hemoglobin 32.5 pg (27.0-31.0); Mean Corpuscular Volume 94.6 fL (78.0-98.0); Mean Platelet Volume 7.3 fL (7.4-10.4); Platelet Count 337 thou/uL (130-400); Red Blood Cell (RBC) Count 4.89 mill/uL (4.20-5.40); White Blood Cell (WBC) Count 14.2 thou/uL (4.8-10.8)
[2019-10-24 04:02] LABS: Anion Gap 15 mmol/L (10-20); BUN (Urea Nitrogen) 29 mg/dL (9.8-20.1); Calc. Creatinine Clearance 90 mL/min (70-130); Calcium 8.9 mg/dL (7.8-10.44); Carbon Dioxide 21 mmol/L (23-31); Chloride 104 mmol/L (98-107); Estimated GFR-MDRD 85; Glucose 242 mg/dL (83-110); Potassium 5.2 mmol/L (3.5-5.1); Sodium 135 mmol/L (136-145)
[2019-10-24] MEDS: HumaLOG 300 UNITS/3 ML VIAL SC PRN ×4 (05:59→20:34)
[2019-10-24] MEDS: Mometasone 100 MCG/PUFF (1 INHALER) INH SCH ×2 (05:59→17:08)
[2019-10-24] MEDS: Amlodipine 10 MG TAB PO SCH (08:57)
[2019-10-24] MEDS: Lisinopril 20 MG TAB PO SCH (08:58)
[2019-10-24] MEDS: Ascorbic Acid 500 mg Chewable Tablet PO SCH (08:58)
[2019-10-24] MEDS: Famotidine 20 MG TAB PO SCH ×2 (08:58→20:30)
[2019-10-24] MEDS: Enoxaparin Sodium 60 MG/0.6 ML SYRINGE SC SCH ×2 (08:58→20:30)
[2019-10-24] MEDS: Multivitamin W/ Minerals 1 TAB PO SCH (08:59)
[2019-10-24] MEDS: Nystatin 500,000 UNITS/5 ML UDCUP SSW SCH ×4 (08:59→20:30)
[2019-10-24] MEDS: methylPREDNISolone Sod Succ/PF 125 MG/2 ML VIAL IVP SCH ×2 (08:59→20:31)
[2019-10-24] MEDS: Zinc Sulfate 220 MG CAP PO SCH (09:00)
[2019-10-24] MEDS: metFORMIN 500 MG TAB PO SCH ×2 (09:12→16:23)
--- NOTE | 2019-10-24 14:44 | PRG ---
DATE OF SERVICE: 10/24/2019 SUBJECTIVE: Fidelia Rojas says she is feeling better each day. She is still on high-flow, FiO2 is at 60, however. Lungs, heart, and abdomen are unchanged. She is hard of hearing, but answers questions appropriately. LABORATORY DATA: White count is 14.2, hemoglobin 15.9, platelets 337. Electrolytes; sodium 135, potassium 5.2, chloride 104, bicarb 21, BUN 29, creatinine 0.68. IMPRESSION: COVID pneumonia, status post noninvasive ventilation, clinically slowly improving. Job ID: [id number]
--- NOTE | 2019-10-24 15:58 | PDOC.HOSPP ---
- Subjective Encounter Date: 10/24/19 Encounter Time: 15:55 Subjective: Seen in follow-up for pneumonia secondary to COVID-19 infection. She reports shortness of breath on exertion. - Objective Vital Signs & Weight: Vital Signs (12 hours) Temp Resp BP BP Pulse Ox 10/24/19 12:00 98.0 F 10/24/19 11:16 94 L 10/24/19 08:58 135/99 H 10/24/19 08:57 135/99 H 10/24/19 08:00 98.3 F 17 116/63 95 10/24/19 07:56 96 10/24/19 04:00 98.2 F Weight Admit Weight 170 lb 3.2 oz Weight 170 lb 3.2 oz Most Recent Monitor Data Heart Rate from ECG 98 NIBP 103/51 NIBP BP-Mean 68 Respiration from ECG 29 SpO2 97 I&O: 10/23/19 10/24/19 10/25/19 06:59 06:59 06:59 Intake Total 1180 500 Output Total 150 650 Balance 1030 -150 Result Diagrams: 10/24/19 03:12 10/24/19 03:12 Additional Labs: Accuchecks 10/24/19 10/24/19 10/23/19 10:41 06:10 20:19 POC Glucose 166 H 152 H 144 H 10/23/19 17:05 POC Glucose 282 H MAR, labs reviewed by me EKG Reviewed by me: Yes (Telemetry: Normal sinus rhythm) Hospitalist ROS - Review of Systems Constitutional: reports: weakness Respiratory: reports: cough, dry, SOB with excertion. denies: shortness of breath, hemoptysis, pleuritic pain, sputum, wheezing Cardiovascular: denies: chest pain, palpitations, orthopnea, paroxysmal noc. dyspnea, edema Neurological: reports: weakness - Medication Medications: Active Medications Generic Name Dose Route Start Last Admin Trade Name Freq PRN Reason Stop Dose Admin Acetaminophen 650 mg 10/08/19 05:45 10/22/19 21:24 Tylenol PO 650 mg Q4H PRN Administration Headache/Fever/Mild Pain (1-3) Amlodipine Besylate 10 mg 10/15/19 09:00 10/24/19 08:57 Norvasc PO 10 mg DAILY KAYLIE Administration Ascorbic Acid 1,000 mg 10/14/19 09:00 10/24/19 08:58 Vitamin C PO 1,000 mg DAILY KAYLIE Administration Bisacodyl 10 mg 10/08/19 05:45 10/14/19 20:17 Dulcolax PO 10 mg DAILYPRN PRN Administration Constipation Dextrose/Water 25 gm 10/09/19 20:14 10/16/19 07:40 Dextrose 50% SLOW IVP 25 gm PRN PRN Administration Hypoglycemia Diphenhydramine HCl 25 mg 10/21/19 16:19 10/23/19 20:07 Benadryl PO 25 mg HSPRN PRN Administration Itching & Insomnia Enoxaparin Sodium 60 mg 10/08/19 21:00 10/24/19 08:58 Lovenox SC 60 mg 0900,2100 KAYLIE Administration Famotidine 20 mg 10/08/19 09:00 10/24/19 08:58 Pepcid PO 20 mg BID KAYLIE Administration Insulin Glargine 9 units/ 0.09 mls @ 0 mls/hr 10/22/19 21:00 10/23/19 20:07 Miscellaneous Medication SC 0.09 mls HS KAYLIE Administration Insulin Human Lispro 0 units 10/19/19 16:47 10/24/19 11:42 Humalog SC 3 unit .AGGRESSIVE SLIDING PRN Administration Aggressive Correctional Scale Iron/Minerals/Multivitamins 1 tab 10/09/19 09:00 10/24/19 08:59 Theragran M PO 1 tab DAILY KAYLIE Administration Latanoprost 1 drop 10/08/19 21:00 10/23/19 20:08 Xalatan 0.005% Ophth Soln EA EYE 1 drop HS KAYLIE Administration Lisinopril 20 mg 10/16/19 07:00 10/24/19 08:58 Zestril PO 20 mg DAILY KAYLIE Administration Metformin HCl 1,000 mg 10/19/19 08:00 10/24/19 09:12 Glucophage PO 1,000 mg BID-WM KAYLIE Administration Methylprednisolone Sodium Succinate 80 mg 10/13/19 21:00 10/24/19 08:59 Solu-Medrol IVP 80 mg Q12HR KAYLIE Administration Mometasone Furoate 200 mcg 10/12/19 18:30 10/24/19 05:59 Asmanex Hfa 100 Mcg INH 2 puff BID-RT KAYLIE Administration Nystatin 500,000 units 10/19/19 21:00 10/24/19 14:26 Mycostatin SSW Not Given QID KAYLIE Ondansetron HCl 4 mg 10/08/19 05:44 10/15/19 17:15 Zofran IVP 4 mg Q6H PRN Administration Nausea/Vomiting, use 1st Simethicone 80 mg 10/21/19 12:42 10/21/19 16:15 Mylicon Drops 40 Mg/0.6ml Drop PO 80 mg QID PRN Administration Gas Pain Sodium Chloride 10 ml 10/08/19 09:00 10/24/19 12:03 Flush - Normal Saline IVF 10 ml Q12HR KAYLIE Administration Sodium Chloride 10 ml 10/08/19 06:34 10/09/19 05:27 Flush - Normal Saline IVF 10 ml PRN PRN Administration Saline Flush Venlafaxine HCl 75 mg 10/08/19 21:00 10/24/19 08:59 Effexor PO 75 mg BID KAYLIE Administration Zinc Sulfate 220 mg 10/09/19 09:00 10/24/19 09:00 Zinc Sulfate PO 220 mg DAILY KAYLIE Administration - Exam General Appearance: awake alert Eye: anicteric sclera ENT: no oropharyngeal lesions Neck: supple Heart: RRR Respiratory: CTAB Gastrointestinal: soft, non-tender Extremities: no cyanosis Musculoskeletal: no muscle wasting Psychiatric: normal affect, normal behavior Hosp A/P - Plan PT/OT, out of bed/ambulate - Plan #covid pneumonia #ARDS -Patient continues to need high flow oxygen -Continue steroids #HTN Stable #T2DM Blood sugars have improved, continue Lantus 10 units at bedtime #anxiety Continue venlafaxine
[2019-10-24] MEDS: diphenhydrAMINE 25 MG CAP PO PRN (20:30)
[2019-10-24] MEDS: INSULIN GLARGINE SC SCH (20:33)
[2019-10-24] MEDS: Latanoprost 0.005% Ophth Soln 2.5 ml Bottle EA EYE SCH (20:33)
[2019-10-24] MEDS: PRE FILLED SC SCH (20:33)
[2019-10-24 21:35] LABS: Potassium 4.5 mmol/L (3.5-5.1)
[2019-10-25 03:42] LABS: #Lymphocytes 0.6 thou/uL (1.20-3.40); #Monocytes 0.3 thou/uL (0.11-0.59); #Neutrophils 12.3 thou/uL (1.40-6.50); %Basophils 0.3 % (0.0-1.0); %Eosinophils 0.3 % (0.0-10.0); %Lymphocytes 4.2 % (21.0-51.0); %Monocytes 2.4 % (0.0-10.0); %Neutrophils 92.8 % (42.0-75.0); Hemoglobin 15.4 g/dL (12.0-16.0); Mean Corpuscular HGB CONC 32.5 g/dL (32.0-36.0); Mean Corpuscular Hemoglobin 30.8 pg (27.0-31.0); Mean Platelet Volume 7.2 fL (7.4-10.4); Platelet Count 311 thou/uL (130-400); RBC Distribution Width 12.1 % (11.5-14.5); Red Blood Cell (RBC) Count 5.01 mill/uL (4.20-5.40); White Blood Cell (WBC) Count 13.3 thou/uL (4.8-10.8)
[2019-10-25 04:00] LABS: Anion Gap 16 mmol/L (10-20); BUN (Urea Nitrogen) 27 mg/dL (9.8-20.1); Calc. Creatinine Clearance 90 mL/min (70-130); Calcium 8.3 mg/dL (7.8-10.44); Carbon Dioxide 22 mmol/L (23-31); Chloride 104 mmol/L (98-107); Estimated GFR-MDRD 85; Glucose 225 mg/dL (83-110); Potassium 4.1 mmol/L (3.5-5.1); Sodium 138 mmol/L (136-145)
[2019-10-25] MEDS: HumaLOG 300 UNITS/3 ML VIAL SC PRN ×2 (05:47→17:35)
[2019-10-25] MEDS: Mometasone 100 MCG/PUFF (1 INHALER) INH SCH ×2 (06:29→17:35)
[2019-10-25] MEDS: Amlodipine 10 MG TAB PO SCH (10:15)
[2019-10-25] MEDS: Nystatin 500,000 UNITS/5 ML UDCUP SSW SCH ×4 (10:15→20:43)
[2019-10-25] MEDS: Ascorbic Acid 500 mg Chewable Tablet PO SCH (10:16)
[2019-10-25] MEDS: Lisinopril 20 MG TAB PO SCH (10:16)
[2019-10-25] MEDS: metFORMIN 500 MG TAB PO SCH ×2 (10:16→17:35)
[2019-10-25] MEDS: Multivitamin W/ Minerals 1 TAB PO SCH (10:17)
[2019-10-25] MEDS: Famotidine 20 MG TAB PO SCH ×2 (10:17→20:42)
[2019-10-25] MEDS: methylPREDNISolone Sod Succ/PF 125 MG/2 ML VIAL IVP SCH ×2 (10:17→20:42)
[2019-10-25] MEDS: Zinc Sulfate 220 MG CAP PO SCH (10:17)
[2019-10-25] MEDS: Enoxaparin Sodium 60 MG/0.6 ML SYRINGE SC SCH ×2 (10:20→20:42)
--- NOTE | 2019-10-25 15:12 | PRG ---
DATE OF SERVICE: 10/25/2019 SUBJECTIVE: Fidelia Rojas is still very hard of hearing. She says she is feeling better. Her high-flow O2 requirements are dropping. OBJECTIVE: VITAL SIGNS: Blood pressure 131/61, heart rate is in 88, respiratory rate is in the teens to low 20s. LUNGS: Unchanged. HEART: Unchanged. ABDOMEN: Unchanged. LABORATORY DATA: White count 13.3, hemoglobin 15.4, platelets 311. Electrolytes are normal. BUN 27, creatinine 0.6. IMPRESSION: 1. COVID pneumonia, clinically improving. 2. She may be able to switch to nasal cannula oxygen tomorrow. She is 17 days into her hospitalization and theory should be out of the infectious stage of her illness. Her isolation probably can be discontinued in another 3 or 4 days. Job ID: [id number]
--- NOTE | 2019-10-25 18:42 | PDOC.HOSPP ---
- Subjective Subjective: Patient was seen examined at bedside. Patient complained of some sort of breath , however her oxygen requirement has decreased. Clinically she is improving. No fever. - Objective Vital Signs & Weight: Vital Signs (12 hours) Temp Pulse Ox 10/25/19 15:33 98.9 F 10/25/19 12:00 93 L 10/25/19 11:20 98.2 F 10/25/19 08:00 98.7 F 10/25/19 07:59 97 10/25/19 07:45 95 Weight Admit Weight 170 lb 3.2 oz Weight 170 lb 3.2 oz Most Recent Monitor Data Heart Rate from ECG 118 NIBP 111/63 NIBP BP-Mean 79 Respiration from ECG 42 SpO2 97 I&O: 10/24/19 10/25/19 10/26/19 06:59 06:59 06:59 Intake Total 500 1100 670 Output Total 650 900 350 Balance -150 200 320 Result Diagrams: 10/25/19 03:20 10/25/19 03:20 Additional Labs: Accuchecks 10/25/19 10/25/19 10/24/19 16:48 10:44 19:47 POC Glucose 212 H 114 H 159 H 10/24/19 17:08 POC Glucose 240 H Radiology Reviewed by me: Yes EKG Reviewed by me: Yes Hospitalist ROS - Medication Medications: Active Medications Generic Name Dose Route Start Last Admin Trade Name Freq PRN Reason Stop Dose Admin Acetaminophen 650 mg 10/08/19 05:45 10/22/19 21:24 Tylenol PO 650 mg Q4H PRN Administration Headache/Fever/Mild Pain (1-3) Amlodipine Besylate 10 mg 10/15/19 09:00 10/25/19 10:15 Norvasc PO 10 mg DAILY KAYLIE Administration Ascorbic Acid 1,000 mg 10/14/19 09:00 10/25/19 10:16 Vitamin C PO 1,000 mg DAILY KAYLIE Administration Bisacodyl 10 mg 10/08/19 05:45 10/14/19 20:17 Dulcolax PO 10 mg DAILYPRN PRN Administration Constipation Dextrose/Water 25 gm 10/09/19 20:14 10/16/19 07:40 Dextrose 50% SLOW IVP 25 gm PRN PRN Administration Hypoglycemia Diphenhydramine HCl 25 mg 10/21/19 16:19 10/24/19 20:30 Benadryl PO 25 mg HSPRN PRN Administration Itching & Insomnia Enoxaparin Sodium 60 mg 10/08/19 21:00 10/25/19 10:20 Lovenox SC 60 mg 0900,2100 KAYLIE Administration Famotidine 20 mg 10/08/19 09:00 10/25/19 10:17 Pepcid PO 20 mg BID KAYLIE Administration Insulin Glargine 9 units/ 0.09 mls @ 0 mls/hr 10/22/19 21:00 10/24/19 20:33 Miscellaneous Medication SC 0.09 mls HS KAYLIE Administration Insulin Human Lispro 0 units 10/19/19 16:47 10/25/19 17:35 Humalog SC 6 unit .AGGRESSIVE SLIDING PRN Administration Aggressive Correctional Scale Iron/Minerals/Multivitamins 1 tab 10/09/19 09:00 10/25/19 10:17 Theragran M PO 1 tab DAILY KAYLIE Administration Latanoprost 1 drop 10/08/19 21:00 10/24/19 20:33 Xalatan 0.005% Ophth Soln EA EYE 1 drop HS KAYLIE Administration Lisinopril 20 mg 10/16/19 07:00 10/25/19 10:16 Zestril PO 20 mg DAILY KAYLIE Administration Metformin HCl 1,000 mg 10/19/19 08:00 10/25/19 17:35 Glucophage PO 1,000 mg BID-WM KAYLIE Administration Methylprednisolone Sodium Succinate 80 mg 10/13/19 21:00 10/25/19 10:17 Solu-Medrol IVP 80 mg Q12HR KAYLIE Administration Mometasone Furoate 200 mcg 10/12/19 18:30 10/25/19 17:35 Asmanex Hfa 100 Mcg INH 2 puff BID-RT KAYLIE Administration Nystatin 500,000 units 10/19/19 21:00 10/25/19 17:35 Mycostatin SSW 500,000 units QID KAYLIE Administration Ondansetron HCl 4 mg 10/08/19 05:44 10/15/19 17:15 Zofran IVP 4 mg Q6H PRN Administration Nausea/Vomiting, use 1st Simethicone 80 mg 10/21/19 12:42 10/21/19 16:15 Mylicon Drops 40 Mg/0.6ml Drop PO 80 mg QID PRN Administration Gas Pain Sodium Chloride 10 ml 10/08/19 09:00 10/25/19 10:17 Flush - Normal Saline IVF 10 ml Q12HR KAYLIE Administration Sodium Chloride 10 ml 10/08/19 06:34 10/09/19 05:27 Flush - Normal Saline IVF 10 ml PRN PRN Administration Saline Flush Venlafaxine HCl 75 mg 10/08/19 21:00 10/25/19 10:16 Effexor PO 75 mg BID KAYLIE Administration Zinc Sulfate 220 mg 10/09/19 09:00 10/25/19 10:17 Zinc Sulfate PO 220 mg DAILY KAYLIE Administration Hosp A/P - Plan General Appearance: awake alert Eye: anicteric sclera ENT: no oropharyngeal lesions Neck: supple Heart: RRR, no murmur Respiratory: course breath sound, no wheezing, good air movement Gastrointestinal: soft, non-tender Extremities: no cyanosis, no edema Psychiatric: normal affect, normal behavior ASSESSMENT and plan: #Acute hypoxic respiratory failure secondary to COVID pneumonia #COVID pneumonia #Essential hypertension #Diabetes type 2 #Anxiety disorder 10/25/2019 Continue management as per line puller. Will repeat chest x-ray tomorrow, clinically improving. Wean O2 as tolerated. Continue IV steroids and breathing treatment. Supportive cares.
[2019-10-25] MEDS: diphenhydrAMINE 25 MG CAP PO PRN (20:42)
[2019-10-25] MEDS: Latanoprost 0.005% Ophth Soln 2.5 ml Bottle EA EYE SCH (20:43)
[2019-10-25] MEDS: INSULIN GLARGINE SC SCH (20:45)
[2019-10-25] MEDS: PRE FILLED SC SCH (20:45)
[2019-10-26 04:16] LABS: Anion Gap 16 mmol/L (10-20); BUN (Urea Nitrogen) 25 mg/dL (9.8-20.1); Calc. Creatinine Clearance 90 mL/min (70-130); Calcium 8.4 mg/dL (7.8-10.44); Carbon Dioxide 23 mmol/L (23-31); Chloride 102 mmol/L (98-107); Estimated GFR-MDRD 85; Glucose 223 mg/dL (83-110); Potassium 4.6 mmol/L (3.5-5.1); Sodium 136 mmol/L (136-145)
[2019-10-26 04:27] LABS: #Eosinphils 0.1 thou/uL (0.0-0.7); #Lymphocytes 0.6 thou/uL (1.20-3.40); #Monocytes 0.4 thou/uL (0.11-0.59); #Neutrophils 12.4 thou/uL (1.40-6.50); %Eosinophils 0.7 % (0.0-10.0); %Lymphocytes 4.5 % (21.0-51.0); %Monocytes 2.8 % (0.0-10.0); Hemoglobin 16.5 g/dL (12.0-16.0); Mean Corpuscular HGB CONC 33.1 g/dL (32.0-36.0); Mean Corpuscular Hemoglobin 31.5 pg (27.0-31.0); Mean Corpuscular Volume 95.3 fL (78.0-98.0); Mean Platelet Volume 7.6 fL (7.4-10.4); Platelet Count 209 thou/uL (130-400); Red Blood Cell (RBC) Count 5.24 mill/uL (4.20-5.40); White Blood Cell (WBC) Count 13.5 thou/uL (4.8-10.8)
[2019-10-26] MEDS: Mometasone 100 MCG/PUFF (1 INHALER) INH SCH ×2 (06:03→17:44)
--- NOTE | 2019-10-26 08:01 | RAD ---
Exam: Chest one view HISTORY:COVID pneumonia Comparison: 10/13/2019, 10/08/2019 FINDINGS: Cardiac silhouette: Normal Aorta: Unremarkable Pulmonary vessels: Normal Costophrenic angles: Clear LUNGS: Persistent interstitial and alveolar opacities. Pneumothorax: None Osseous abnormalities: None IMPRESSION: Stable multi lobar pneumonia
[2019-10-26] MEDS: Enoxaparin Sodium 60 MG/0.6 ML SYRINGE SC SCH ×2 (10:00→20:49)
[2019-10-26] MEDS: methylPREDNISolone Sod Succ/PF 125 MG/2 ML VIAL IVP SCH ×2 (10:00→20:52)
[2019-10-26] MEDS: Nystatin 500,000 UNITS/5 ML UDCUP SSW SCH ×4 (10:01→20:53)
[2019-10-26] MEDS: Lisinopril 20 MG TAB PO SCH (10:02)
[2019-10-26] MEDS: metFORMIN 500 MG TAB PO SCH ×2 (10:02→17:44)
[2019-10-26] MEDS: Famotidine 20 MG TAB PO SCH ×2 (10:02→20:53)
[2019-10-26] MEDS: Ascorbic Acid 500 mg Chewable Tablet PO SCH (10:02)
[2019-10-26] MEDS: Multivitamin W/ Minerals 1 TAB PO SCH (10:03)
[2019-10-26] MEDS: Zinc Sulfate 220 MG CAP PO SCH (10:03)
[2019-10-26] MEDS: Amlodipine 10 MG TAB PO SCH (10:03)
--- NOTE | 2019-10-26 10:22 | PRG ---
DATE OF SERVICE: 10/26/2019 SUBJECTIVE: The patient has been freed from COVID isolation. She still remains on high-flow nasal cannula. OBJECTIVE: VITAL SIGNS: Temperature 97.5, pulse 89, blood pressure 129/69, O2 saturation 90% on 55% high-flow oxygen. HEENT: Unremarkable. NECK: No JVD. LUNGS: Few inspiratory crackles. CARDIAC: S1 and S2, regular. ABDOMEN: Soft. EXTREMITIES: No edema. LABORATORY DATA: Sodium 136, potassium 4.6, BUN 25, creatinine 0.7, glucose 223. White blood cell count 13.5, hematocrit 15, platelet count 209. Chest x-ray demonstrates bilateral subtle infiltrates compared to 10/12, it is probably a little better. ASSESSMENT: COVID-19 pneumonia with acute hypoxic respiratory failure. PLAN: Continue high-flow oxygen, anticoagulation, and IV methylprednisolone. Job ID: [id number]
[2019-10-26] MEDS: HumaLOG 300 UNITS/3 ML VIAL SC PRN (17:44)
--- NOTE | 2019-10-26 19:13 | PDOC.HOSPP ---
- Subjective Subjective: Patient remained stable on high flow. Repeat chest x-ray stable. No acute events overnight. Slow to progress - Objective Vital Signs & Weight: Vital Signs (12 hours) Temp Pulse Pulse BP BP Pulse Ox Pulse Ox 10/26/19 16:00 98.0 F 10/26/19 15:19 112 H 104 H 111/63 133/67 93 L 10/26/19 11:53 97.8 F 10/26/19 07:26 97.5 F L 10/26/19 07:15 94 L Pulse Ox Pulse Ox 10/26/19 16:00 10/26/19 15:19 76 L 94 L 10/26/19 11:53 10/26/19 07:26 10/26/19 07:15 Weight Admit Weight 170 lb 3.2 oz Weight 170 lb 3.2 oz Most Recent Monitor Data Heart Rate from ECG 135 NIBP 119/63 NIBP BP-Mean 81 Respiration from ECG 36 SpO2 87 I&O: 10/25/19 10/26/19 10/27/19 06:59 06:59 06:59 Intake Total 1100 985 775 Output Total 900 350 650 Balance 200 635 125 Result Diagrams: 10/26/19 03:33 10/26/19 03:33 Additional Labs: Accuchecks 10/26/19 10/26/19 10/26/19 17:04 10:58 06:36 POC Glucose 206 H 154 H 152 H 10/25/19 20:46 POC Glucose 101 Hospitalist ROS - Medication Medications: Active Medications Generic Name Dose Route Start Last Admin Trade Name Freq PRN Reason Stop Dose Admin Acetaminophen 650 mg 10/08/19 05:45 10/22/19 21:24 Tylenol PO 650 mg Q4H PRN Administration Headache/Fever/Mild Pain (1-3) Amlodipine Besylate 10 mg 10/15/19 09:00 10/26/19 10:03 Norvasc PO 10 mg DAILY KAYLIE Administration Ascorbic Acid 1,000 mg 10/14/19 09:00 10/26/19 10:02 Vitamin C PO 1,000 mg DAILY KAYLIE Administration Bisacodyl 10 mg 10/08/19 05:45 10/14/19 20:17 Dulcolax PO 10 mg DAILYPRN PRN Administration Constipation Dextrose/Water 25 gm 10/09/19 20:14 10/16/19 07:40 Dextrose 50% SLOW IVP 25 gm PRN PRN Administration Hypoglycemia Diphenhydramine HCl 25 mg 10/21/19 16:19 10/25/19 20:42 Benadryl PO 25 mg HSPRN PRN Administration Itching & Insomnia Enoxaparin Sodium 60 mg 10/08/19 21:00 10/26/19 10:00 Lovenox SC 60 mg 0900,2100 KAYLIE Administration Famotidine 20 mg 10/08/19 09:00 10/26/19 10:02 Pepcid PO 20 mg BID KAYLIE Administration Insulin Glargine 9 units/ 0.09 mls @ 0 mls/hr 10/22/19 21:00 10/25/19 20:45 Miscellaneous Medication SC Not Given HS [facility] Insulin Human Lispro 0 units 10/19/19 16:47 10/26/19 17:44 Humalog SC 6 unit .AGGRESSIVE SLIDING PRN Administration Aggressive Correctional Scale Iron/Minerals/Multivitamins 1 tab 10/09/19 09:00 10/26/19 10:03 Theragran M PO 1 tab DAILY KAYLIE Administration Latanoprost 1 drop 10/08/19 21:00 10/25/19 20:43 Xalatan 0.005% Ophth Soln EA EYE 1 drop HS KAYLIE Administration Lisinopril 20 mg 10/16/19 07:00 10/26/19 10:02 Zestril PO 20 mg DAILY KAYLIE Administration Metformin HCl 1,000 mg 10/19/19 08:00 10/26/19 17:44 Glucophage PO 1,000 mg BID-WM KAYLIE Administration Methylprednisolone Sodium Succinate 80 mg 10/13/19 21:00 10/26/19 10:00 Solu-Medrol IVP 80 mg Q12HR KAYLIE Administration Mometasone Furoate 200 mcg 10/12/19 18:30 10/26/19 17:44 Asmanex Hfa 100 Mcg INH 2 puff BID-RT KAYLIE Administration Nystatin 500,000 units 10/19/19 21:00 10/26/19 17:44 Mycostatin SSW 500,000 units QID KAYLIE Administration Ondansetron HCl 4 mg 10/08/19 05:44 10/15/19 17:15 Zofran IVP 4 mg Q6H PRN Administration Nausea/Vomiting, use 1st Simethicone 80 mg 10/21/19 12:42 10/21/19 16:15 Mylicon Drops 40 Mg/0.6ml Drop PO 80 mg QID PRN Administration Gas Pain Sodium Chloride 10 ml 10/08/19 09:00 10/26/19 10:01 Flush - Normal Saline IVF 10 ml Q12HR KAYLIE Administration Sodium Chloride 10 ml 10/08/19 06:34 10/09/19 05:27 Flush - Normal Saline IVF 10 ml PRN PRN Administration Saline Flush Venlafaxine HCl 75 mg 10/08/19 21:00 10/26/19 10:02 Effexor PO 75 mg BID KAYLIE Administration Zinc Sulfate 220 mg 10/09/19 09:00 10/26/19 10:03 Zinc Sulfate PO 220 mg DAILY KAYLIE Administration Hosp A/P - Plan General Appearance: awake alert Eye: anicteric sclera ENT: no oropharyngeal lesions Neck: supple Heart: RRR, no murmur Respiratory: course breath sound, no wheezing, good air movement Gastrointestinal: soft, non-tender Extremities: no cyanosis, no edema Psychiatric: normal affect, normal behavior ASSESSMENT and plan: #Acute hypoxic respiratory failure secondary to COVID pneumonia #COVID pneumonia #Essential hypertension #Diabetes type 2 #Anxiety disorder 10/26/2019 Repeat chest x-ray appears to be stable. Continue high flow, wean O2 as tolerated, IV steroids. Clinical Counselor is following, appreciate recommendation. Cont supportive cares. 10/25/2019 Continue management as per gold leaf printer. Will repeat chest x-ray tomorrow, clinically improving. Wean O2 as tolerated. Continue IV steroids and breathing treatment. Supportive cares.
[2019-10-26] MEDS: INSULIN GLARGINE SC SCH (20:49)
[2019-10-26] MEDS: PRE FILLED SC SCH (20:49)
[2019-10-26] MEDS: diphenhydrAMINE 25 MG CAP PO PRN (20:53)
[2019-10-26] MEDS: Latanoprost 0.005% Ophth Soln 2.5 ml Bottle EA EYE SCH (20:54)
[2019-10-27 03:46] LABS: #Basophils 0.1 thou/uL (0.0-0.2); #Eosinphils 0.1 thou/uL (0.0-0.7); #Lymphocytes 0.6 thou/uL (1.20-3.40); #Monocytes 0.2 thou/uL (0.11-0.59); #Neutrophils 11.8 thou/uL (1.40-6.50); %Basophils 0.4 % (0.0-1.0); %Eosinophils 0.5 % (0.0-10.0); %Lymphocytes 4.9 % (21.0-51.0); %Monocytes 1.9 % (0.0-10.0); %Neutrophils 92.3 % (42.0-75.0); Hemoglobin 16.1 g/dL (12.0-16.0); Mean Corpuscular HGB CONC 33.3 g/dL (32.0-36.0); Mean Corpuscular Hemoglobin 31.7 pg (27.0-31.0); Mean Corpuscular Volume 95.4 fL (78.0-98.0); Mean Platelet Volume 6.9 fL (7.4-10.4); Platelet Count 289 thou/uL (130-400); Red Blood Cell (RBC) Count 5.07 mill/uL (4.20-5.40); White Blood Cell (WBC) Count 12.8 thou/uL (4.8-10.8)
[2019-10-27 04:45] LABS: Anion Gap 12 mmol/L (10-20); BUN (Urea Nitrogen) 21 mg/dL (9.8-20.1); Calc. Creatinine Clearance 90 mL/min (70-130); Calcium 8.5 mg/dL (7.8-10.44); Carbon Dioxide 27 mmol/L (23-31); Chloride 103 mmol/L (98-107); Estimated GFR-MDRD 85; Glucose 213 mg/dL (83-110); Potassium 4.2 mmol/L (3.5-5.1); Sodium 138 mmol/L (136-145)
[2019-10-27] MEDS: HumaLOG 300 UNITS/3 ML VIAL SC PRN ×2 (05:52→18:18)
[2019-10-27] MEDS: Mometasone 100 MCG/PUFF (1 INHALER) INH SCH ×2 (06:05→18:19)
[2019-10-27] MEDS: Enoxaparin Sodium 60 MG/0.6 ML SYRINGE SC SCH ×2 (07:36→20:43)
[2019-10-27] MEDS: Nystatin 500,000 UNITS/5 ML UDCUP SSW SCH ×4 (07:36→20:43)
[2019-10-27] MEDS: methylPREDNISolone Sod Succ/PF 125 MG/2 ML VIAL IVP SCH ×2 (07:36→20:43)
[2019-10-27] MEDS: metFORMIN 500 MG TAB PO SCH ×2 (07:37→18:18)
[2019-10-27] MEDS: Ascorbic Acid 500 mg Chewable Tablet PO SCH (07:37)
[2019-10-27] MEDS: Zinc Sulfate 220 MG CAP PO SCH (07:37)
[2019-10-27] MEDS: Lisinopril 20 MG TAB PO SCH (07:37)
[2019-10-27] MEDS: Amlodipine 10 MG TAB PO SCH (07:38)
[2019-10-27] MEDS: Famotidine 20 MG TAB PO SCH ×2 (07:38→20:43)
[2019-10-27] MEDS: Multivitamin W/ Minerals 1 TAB PO SCH (07:38)
--- NOTE | 2019-10-27 10:11 | PRG ---
DATE OF SERVICE: 10/27/2019 SUBJECTIVE: The patient is doing about the same. She remains on high-flow nasal cannula at 44%. OBJECTIVE: VITAL SIGNS: Temperature 97.6, pulse 96, O2 saturation 94%, blood pressure 130/81. HEENT: Unremarkable. NECK: No JVD. LUNGS: Inspiratory crackles. CARDIAC: S1, S2. Regular. ABDOMEN: Soft. EXTREMITIES: No edema. LABORATORY DATA: White blood cell count 12.8, hematocrit 40.4, and platelet count 289. Sodium 138, potassium 4.2, BUN 21, creatinine 0.6, glucose 213. ASSESSMENT: 1. COVID-19 pneumonia. 2. Acute hypoxic respiratory failure. PLAN: Continue anticoagulation, IV steroids, and just give her more time. Job ID: [id number]
--- NOTE | 2019-10-27 17:32 | PDOC.HOSPP ---
- Subjective Subjective: Patient was seen examined at bedside. No acute events overnight. Patient remained stable on high flow, no significant changes. - Objective Vital Signs & Weight: Vital Signs (12 hours) Temp Pulse Ox Pulse Ox Pulse Ox Pulse Ox 10/27/19 15:24 97.8 F 10/27/19 11:39 97.6 F 10/27/19 08:58 92 L 85 L 94 L 10/27/19 07:44 96 10/27/19 07:41 97.6 F 10/27/19 07:15 94 L Weight Admit Weight 170 lb 3.2 oz Weight 170 lb 3.2 oz Most Recent Monitor Data Heart Rate from ECG 105 NIBP 115/66 NIBP BP-Mean 82 Respiration from ECG 34 SpO2 92 I&O: 10/26/19 10/27/19 10/28/19 06:59 06:59 06:59 Intake Total 985 895 Output Total 350 900 Balance 635 -5 Result Diagrams: 10/27/19 03:28 10/27/19 03:27 Additional Labs: Accuchecks 10/27/19 10/27/19 10/27/19 17:12 10:53 06:00 POC Glucose 223 H 127 H 183 H 10/26/19 10/25/19 20:51 05:57 POC Glucose 189 H 171 H Hospitalist ROS - Medication Medications: Active Medications Generic Name Dose Route Start Last Admin Trade Name Freq PRN Reason Stop Dose Admin Acetaminophen 650 mg 10/08/19 05:45 10/22/19 21:24 Tylenol PO 650 mg Q4H PRN Administration Headache/Fever/Mild Pain (1-3) Amlodipine Besylate 10 mg 10/15/19 09:00 10/27/19 07:38 Norvasc PO 10 mg DAILY KAYLIE Administration Ascorbic Acid 1,000 mg 10/14/19 09:00 10/27/19 07:37 Vitamin C PO 1,000 mg DAILY KAYLIE Administration Bisacodyl 10 mg 10/08/19 05:45 10/14/19 20:17 Dulcolax PO 10 mg DAILYPRN PRN Administration Constipation Dextrose/Water 25 gm 10/09/19 20:14 10/16/19 07:40 Dextrose 50% SLOW IVP 25 gm PRN PRN Administration Hypoglycemia Diphenhydramine HCl 25 mg 10/21/19 16:19 10/26/19 20:53 Benadryl PO 25 mg HSPRN PRN Administration Itching & Insomnia Enoxaparin Sodium 60 mg 10/08/19 21:00 10/27/19 07:36 Lovenox SC 60 mg 0900,2100 KAYLIE Administration Famotidine 20 mg 10/08/19 09:00 10/27/19 07:38 Pepcid PO 20 mg BID KAYLIE Administration Insulin Glargine 9 units/ 0.09 mls @ 0 mls/hr 10/22/19 21:00 10/26/19 20:49 Miscellaneous Medication SC 0.09 mls HS KAYLIE Administration Insulin Human Lispro 0 units 10/19/19 16:47 10/27/19 05:52 Humalog SC 3 unit .AGGRESSIVE SLIDING PRN Administration Aggressive Correctional Scale Iron/Minerals/Multivitamins 1 tab 10/09/19 09:00 10/27/19 07:38 Theragran M PO 1 tab DAILY KAYLIE Administration Latanoprost 1 drop 10/08/19 21:00 10/26/19 20:54 Xalatan 0.005% Ophth Soln EA EYE 1 drop HS KAYLIE Administration Lisinopril 20 mg 10/16/19 07:00 10/27/19 07:37 Zestril PO 20 mg DAILY KAYLIE Administration Metformin HCl 1,000 mg 10/19/19 08:00 10/27/19 07:37 Glucophage PO 1,000 mg BID-WM KAYLIE Administration Methylprednisolone Sodium Succinate 80 mg 10/13/19 21:00 10/27/19 07:36 Solu-Medrol IVP 80 mg Q12HR KAYLIE Administration Mometasone Furoate 200 mcg 10/12/19 18:30 10/27/19 06:05 Asmanex Hfa 100 Mcg INH 2 puff BID-RT KAYLIE Administration Nystatin 500,000 units 10/19/19 21:00 10/27/19 13:18 Mycostatin SSW 500,000 units QID KAYLIE Administration Ondansetron HCl 4 mg 10/08/19 05:44 10/15/19 17:15 Zofran IVP 4 mg Q6H PRN Administration Nausea/Vomiting, use 1st Simethicone 80 mg 10/21/19 12:42 10/21/19 16:15 Mylicon Drops 40 Mg/0.6ml Drop PO 80 mg QID PRN Administration Gas Pain Sodium Chloride 10 ml 10/08/19 09:00 10/27/19 07:38 Flush - Normal Saline IVF 10 ml Q12HR AKYLIE Administration Sodium Chloride 10 ml 10/08/19 06:34 10/09/19 05:27 Flush - Normal Saline IVF 10 ml PRN PRN Administration Saline Flush Venlafaxine HCl 75 mg 10/08/19 21:00 10/27/19 07:37 Effexor PO 75 mg BID KAYLIE Administration Zinc Sulfate 220 mg 10/09/19 09:00 10/27/19 07:37 Zinc Sulfate PO 220 mg DAILY KAYLIE Administration Hosp A/P - Plan General Appearance: awake alert Eye: anicteric sclera ENT: no oropharyngeal lesions Neck: supple Heart: RRR, no murmur Respiratory: course breath sound, no wheezing, good air movement Gastrointestinal: soft, non-tender Extremities: no cyanosis, no edema Psychiatric: normal affect, normal behavior ASSESSMENT and plan: #Acute hypoxic respiratory failure secondary to COVID pneumonia #COVID pneumonia #Essential hypertension #Diabetes type 2 #Anxiety disorder 10/27/2019 Patient remained stable on high flow, no significant changes overnight. Slow to progress. Patient will need more time. Appreciate bandoleer straightener stamper's help. cont supportive cares 10/26/2019 Repeat chest x-ray appears to be stable. Continue high flow, wean O2 as tolerated, IV steroids. Water Supervisor is following, appreciate recommendation. Cont supportive cares. 10/25/2019 Continue management as per bandoleer straightener stamper. Will repeat chest x-ray tomorrow, clinically improving. Wean O2 as tolerated. Continue IV steroids and breathing treatment. Supportive cares.
[2019-10-27] MEDS: PRE FILLED SC SCH (20:43)
[2019-10-27] MEDS: INSULIN GLARGINE SC SCH (20:43)
[2019-10-27] MEDS: Latanoprost 0.005% Ophth Soln 2.5 ml Bottle EA EYE SCH (20:48)
[2019-10-28 03:45] LABS: #Basophils 0.1 thou/uL (0.0-0.2); #Eosinphils 0.1 thou/uL (0.0-0.7); #Lymphocytes 0.6 thou/uL (1.20-3.40); #Monocytes 0.3 thou/uL (0.11-0.59); #Neutrophils 12.5 thou/uL (1.40-6.50); %Basophils 0.6 % (0.0-1.0); %Eosinophils 0.5 % (0.0-10.0); %Lymphocytes 4.1 % (21.0-51.0); %Monocytes 1.9 % (0.0-10.0); Hemoglobin 15.8 g/dL (12.0-16.0); Mean Corpuscular HGB CONC 31.6 g/dL (32.0-36.0); Mean Platelet Volume 7.2 fL (7.4-10.4); Platelet Count 277 thou/uL (130-400); RBC Distribution Width 12.2 % (11.5-14.5); Red Blood Cell (RBC) Count 5.26 mill/uL (4.20-5.40); White Blood Cell (WBC) Count 13.4 thou/uL (4.8-10.8)
[2019-10-28 04:05] LABS: Anion Gap 14 mmol/L (10-20); BUN (Urea Nitrogen) 23 mg/dL (9.8-20.1); Calc. Creatinine Clearance 94 mL/min (70-130); Calcium 8.3 mg/dL (7.8-10.44); Carbon Dioxide 23 mmol/L (23-31); Chloride 105 mmol/L (98-107); Estimated GFR-MDRD 89; Glucose 221 mg/dL (83-110); Sodium 138 mmol/L (136-145)
[2019-10-28] MEDS: HumaLOG 300 UNITS/3 ML VIAL SC PRN (05:59)
[2019-10-28] MEDS: Mometasone 100 MCG/PUFF (1 INHALER) INH SCH ×2 (06:05→19:10)
[2019-10-28] MEDS: Enoxaparin Sodium 60 MG/0.6 ML SYRINGE SC SCH ×2 (08:27→20:11)
[2019-10-28] MEDS: methylPREDNISolone Sod Succ/PF 125 MG/2 ML VIAL IVP SCH ×3 (08:27→20:11)
[2019-10-28] MEDS: Zinc Sulfate 220 MG CAP PO SCH (08:27)
[2019-10-28] MEDS: Famotidine 20 MG TAB PO SCH ×2 (08:27→20:11)
[2019-10-28] MEDS: metFORMIN 500 MG TAB PO SCH ×2 (08:27→18:21)
[2019-10-28] MEDS: Amlodipine 10 MG TAB PO SCH (08:27)
[2019-10-28] MEDS: Multivitamin W/ Minerals 1 TAB PO SCH (08:28)
[2019-10-28] MEDS: Lisinopril 20 MG TAB PO SCH (08:28)
[2019-10-28] MEDS: Nystatin 500,000 UNITS/5 ML UDCUP SSW SCH ×4 (08:28→20:11)
[2019-10-28] MEDS: Ascorbic Acid 500 mg Chewable Tablet PO SCH (08:28)
--- NOTE | 2019-10-28 08:44 | PRG ---
DATE OF SERVICE: 10/28/2019 SUBJECTIVE: The patient is doing better. OBJECTIVE: VITAL SIGNS: Her O2 saturation is in the mid 90s on a high-flow nasal cannula 45%. Pulse 114, blood pressure 129/79, temperature 97.6. HEENT: Unremarkable. NECK: No JVD. LUNGS: Crackles. CARDIAC: S1 and S2. Regular. ABDOMEN: Soft. EXTREMITIES: No edema. LABORATORY DATA: Sodium 138, potassium 4, BUN 23, creatinine 0.6, glucose 221. White blood cell count 13, hematocrit 50, platelet count 277. ASSESSMENT: COVID-19 pneumonia. PLAN: 1. Continue anticoagulation and steroids. 2. Increase activity as tolerated. Job ID: [id number]
--- NOTE | 2019-10-28 17:49 | PDOC.HOSPP ---
- Subjective Subjective: Pt was seen and examined. working with PT, slow to progress. no acute event overnight. - Objective Vital Signs & Weight: Vital Signs (12 hours) Temp Pulse Pulse Pulse Pulse BP BP 10/28/19 15:33 97.4 F L 10/28/19 11:38 108 H 106 H 108 H 106 H 117/57 L 115/57 L 10/28/19 11:05 97.5 F L 10/28/19 07:30 10/28/19 07:11 97.6 F Pulse Ox Pulse Ox Pulse Ox Pulse Ox Pulse Ox 10/28/19 15:33 10/28/19 11:38 76 L 86 L 92 L 89 L 10/28/19 11:05 10/28/19 07:30 94 L 10/28/19 07:11 Weight Admit Weight 170 lb 3.2 oz Weight 170 lb 3.2 oz Most Recent Monitor Data Heart Rate from ECG 118 NIBP 119/73 NIBP BP-Mean 88 Respiration from ECG 38 SpO2 92 I&O: 10/27/19 10/28/19 10/29/19 06:59 06:59 06:59 Intake Total 895 1000 700 Output Total 900 1100 Balance -5 -100 700 Result Diagrams: 10/28/19 03:25 10/28/19 03:25 Additional Labs: Accuchecks 10/28/19 10/28/19 10/28/19 16:43 10:47 05:58 POC Glucose 203 H 118 H 194 H 10/27/19 20:53 POC Glucose 190 H Hospitalist ROS - Medication Medications: Active Medications Generic Name Dose Route Start Last Admin Trade Name Maurilioq PRN Reason Stop Dose Admin Acetaminophen 650 mg 10/08/19 05:45 10/22/19 21:24 Tylenol PO 650 mg Q4H PRN Administration Headache/Fever/Mild Pain (1-3) Amlodipine Besylate 10 mg 10/15/19 09:00 10/28/19 08:27 Norvasc PO 10 mg DAILY KAYLIE Administration Ascorbic Acid 1,000 mg 10/14/19 09:00 10/28/19 08:28 Vitamin C PO 1,000 mg DAILY KAYLIE Administration Bisacodyl 10 mg 10/08/19 05:45 10/14/19 20:17 Dulcolax PO 10 mg DAILYPRN PRN Administration Constipation Dextrose/Water 25 gm 10/09/19 20:14 10/16/19 07:40 Dextrose 50% SLOW IVP 25 gm PRN PRN Administration Hypoglycemia Diphenhydramine HCl 25 mg 10/21/19 16:19 10/26/19 20:53 Benadryl PO 25 mg HSPRN PRN Administration Itching & Insomnia Enoxaparin Sodium 60 mg 10/08/19 21:00 10/28/19 08:27 Lovenox SC 60 mg 0900,2100 KAYLIE Administration Famotidine 20 mg 10/08/19 09:00 10/28/19 08:27 Pepcid PO 20 mg BID KAYLIE Administration Insulin Glargine 9 units/ 0.09 mls @ 0 mls/hr 10/22/19 21:00 10/27/19 20:43 Miscellaneous Medication SC 0.09 mls HS KAYLIE Administration Insulin Human Lispro 0 units 10/19/19 16:47 10/28/19 05:59 Humalog SC 3 unit .AGGRESSIVE SLIDING PRN Administration Aggressive Correctional Scale Iron/Minerals/Multivitamins 1 tab 10/09/19 09:00 10/28/19 08:28 Theragran M PO 1 tab DAILY KAYLIE Administration Latanoprost 1 drop 10/08/19 21:00 10/27/19 20:48 Xalatan 0.005% Ophth Soln EA EYE 1 drop HS KAYLIE Administration Lisinopril 20 mg 10/16/19 07:00 10/28/19 08:28 Zestril PO 20 mg DAILY KAYLIE Administration Metformin HCl 1,000 mg 10/19/19 08:00 10/28/19 08:27 Glucophage PO 1,000 mg BID-WM KAYLIE Administration Methylprednisolone Sodium Succinate 60 mg 10/28/19 09:00 10/28/19 10:08 Solu-Medrol IVP Not Given Q12HR KAYLIE Mometasone Furoate 200 mcg 10/12/19 18:30 10/28/19 06:05 Asmanex Hfa 100 Mcg INH 2 puff BID-RT KAYLIE Administration Nystatin 500,000 units 10/19/19 21:00 10/28/19 12:52 Mycostatin SSW 500,000 units QID KAYLIE Administration Ondansetron HCl 4 mg 10/08/19 05:44 10/15/19 17:15 Zofran IVP 4 mg Q6H PRN Administration Nausea/Vomiting, use 1st Simethicone 80 mg 10/21/19 12:42 10/21/19 16:15 Mylicon Drops 40 Mg/0.6ml Drop PO 80 mg QID PRN Administration Gas Pain Sodium Chloride 10 ml 10/08/19 09:00 10/28/19 08:28 Flush - Normal Saline IVF 10 ml Q12HR KAYLIE Administration Sodium Chloride 10 ml 10/08/19 06:34 10/09/19 05:27 Flush - Normal Saline IVF 10 ml PRN PRN Administration Saline Flush Venlafaxine HCl 75 mg 10/08/19 21:00 10/28/19 08:28 Effexor PO 75 mg BID KAYLIE Administration Zinc Sulfate 220 mg 10/09/19 09:00 10/28/19 08:27 Zinc Sulfate PO 220 mg DAILY KAYLIE Administration Hosp A/P - Plan General Appearance: awake alert Eye: anicteric sclera ENT: no oropharyngeal lesions Neck: supple Heart: RRR, no murmur Respiratory: course breath sound, no wheezing, good air movement Gastrointestinal: soft, non-tender Extremities: no cyanosis, no edema Psychiatric: normal affect, normal behavior ASSESSMENT and plan: #Acute hypoxic respiratory failure secondary to COVID pneumonia #COVID pneumonia #Essential hypertension #Diabetes type 2 #Anxiety disorder 10/28/19 Pt is comfortable on high flow, slow to progress. wean o2 as hilary. cont mgt including steroid and supportive cares. PT 10/27/2019 Patient remained stable on high flow, no significant changes overnight. Slow to progress. Patient will need more time. Appreciate cosmetics and toiletries salesperson's help. cont supportive cares 10/26/2019 Repeat chest x-ray appears to be stable. Continue high flow, wean O2 as tolerated, IV steroids. Pot Lining Supervisor is following, appreciate recommendation. Cont supportive cares. 10/25/2019 Continue management as per cosmetics and toiletries salesperson. Will repeat chest x-ray tomorrow, clinically improving. Wean O2 as tolerated. Continue IV steroids and breathing treatment. Supportive cares.
[2019-10-28] MEDS: INSULIN GLARGINE SC SCH (20:10)
[2019-10-28] MEDS: PRE FILLED SC SCH (20:10)
[2019-10-28] MEDS: Latanoprost 0.005% Ophth Soln 2.5 ml Bottle EA EYE SCH (20:40)
[2019-10-29 03:53] LABS: #Eosinphils 0.1 thou/uL (0.0-0.7); #Lymphocytes 0.9 thou/uL (1.20-3.40); #Monocytes 0.4 thou/uL (0.11-0.59); #Neutrophils 13.5 thou/uL (1.40-6.50); %Basophils 0.3 % (0.0-1.0); %Eosinophils 0.4 % (0.0-10.0); %Monocytes 2.8 % (0.0-10.0); %Neutrophils 90.5 % (42.0-75.0); Hemoglobin 15.9 g/dL (12.0-16.0); Mean Corpuscular HGB CONC 32.7 g/dL (32.0-36.0); Mean Corpuscular Hemoglobin 30.8 pg (27.0-31.0); Mean Corpuscular Volume 94.3 fL (78.0-98.0); Mean Platelet Volume 7.5 fL (7.4-10.4); Platelet Count 257 thou/uL (130-400); RBC Distribution Width 12.2 % (11.5-14.5); Red Blood Cell (RBC) Count 5.17 mill/uL (4.20-5.40); White Blood Cell (WBC) Count 14.9 thou/uL (4.8-10.8)
[2019-10-29 04:14] LABS: Anion Gap 13 mmol/L (10-20); BUN (Urea Nitrogen) 18 mg/dL (9.8-20.1); Calc. Creatinine Clearance 102 mL/min (70-130); Calcium 8.4 mg/dL (7.8-10.44); Carbon Dioxide 24 mmol/L (23-31); Chloride 105 mmol/L (98-107); Estimated GFR-MDRD Greater than 90; Glucose 216 mg/dL (83-110); Potassium 4.7 mmol/L (3.5-5.1); Sodium 137 mmol/L (136-145)
[2019-10-29] MEDS: HumaLOG 300 UNITS/3 ML VIAL SC PRN ×3 (06:00→18:24)
[2019-10-29] MEDS: Mometasone 100 MCG/PUFF (1 INHALER) INH SCH ×2 (06:38→18:57)
[2019-10-29] MEDS: Lisinopril 20 MG TAB PO SCH (08:42)
[2019-10-29] MEDS: Nystatin 500,000 UNITS/5 ML UDCUP SSW SCH ×4 (08:42→20:52)
[2019-10-29] MEDS: Amlodipine 10 MG TAB PO SCH (08:43)
[2019-10-29] MEDS: Zinc Sulfate 220 MG CAP PO SCH (08:43)
[2019-10-29] MEDS: Famotidine 20 MG TAB PO SCH ×2 (08:43→20:49)
[2019-10-29] MEDS: Ascorbic Acid 500 mg Chewable Tablet PO SCH (08:43)
[2019-10-29] MEDS: metFORMIN 500 MG TAB PO SCH ×2 (08:43→18:23)
[2019-10-29] MEDS: methylPREDNISolone Sod Succ/PF 125 MG/2 ML VIAL IVP SCH ×2 (08:44→20:50)
[2019-10-29] MEDS: Multivitamin W/ Minerals 1 TAB PO SCH (08:44)
[2019-10-29] MEDS: Enoxaparin Sodium 60 MG/0.6 ML SYRINGE SC SCH ×2 (08:44→20:50)
--- NOTE | 2019-10-29 09:11 | PRG ---
DATE OF SERVICE: 10/29/2019 SUBJECTIVE: The patient is about the same. She is on high-flow nasal cannula, sitting up, eating. OBJECTIVE: VITAL SIGNS: O2 saturations running in the high 80s to mid 90s, temperature 96.2, pulse 87, blood pressure 110/76. HEENT: Unremarkable. NECK: No JVD. LUNGS: Inspiratory crackles bilaterally. CARDIAC: S1, S2. Regular. ABDOMEN: Soft. EXTREMITIES: No edema. LABORATORY DATA: White blood cell count 14.9, hematocrit 48.8, and platelet count 257. Sodium 137, potassium 4.7, BUN 18, creatinine 0.6, glucose 216. ASSESSMENT: COVID-19 pneumonia with acute hypoxic respiratory failure. PLAN: Continue steroids, anticoagulation, and high-flow oxygen. This will take some time to improve. Job ID: [id number]
[2019-10-29] MEDS ORDERED: ALPRAZolam 0.25 MG TAB PO PRN (09:49)
[2019-10-29] MEDS ORDERED: Furosemide 20 MG/2 ML VIAL SLOW IVP SCH (11:45)
--- NOTE | 2019-10-29 17:55 | PDOC.HOSPP ---
- Subjective Subjective: still on the HiFLo with the same settings. dyspneic with exertion. no fever - Objective Vital Signs & Weight: Vital Signs (12 hours) Temp Pulse Pulse Pulse BP BP BP 10/29/19 16:00 10/29/19 15:46 98.3 F 10/29/19 11:48 97.6 F 10/29/19 10:24 111 H 112 H 115/64 103/62 10/29/19 08:43 117 H 134/68 10/29/19 08:42 134/68 10/29/19 07:21 10/29/19 07:13 96.2 F L Pulse Ox Pulse Ox Pulse Ox 10/29/19 16:00 97 10/29/19 15:46 10/29/19 11:48 10/29/19 10:24 86 L 92 L 10/29/19 08:43 10/29/19 08:42 10/29/19 07:21 91 L 10/29/19 07:13 Weight Admit Weight 170 lb 3.2 oz Weight 170 lb 3.2 oz Most Recent Monitor Data Heart Rate from ECG 116 NIBP 111/59 NIBP BP-Mean 76 Respiration from ECG 23 SpO2 93 I&O: 10/28/19 10/29/19 10/30/19 06:59 06:59 06:59 Intake Total 1000 1580 Output Total 1100 700 Balance -100 880 Result Diagrams: 10/29/19 03:14 10/29/19 03:14 Additional Labs: Accuchecks 10/29/19 10/29/19 10/29/19 16:59 10:43 06:02 POC Glucose 278 H 187 H 168 H 10/28/19 20:15 POC Glucose 212 H Hospitalist ROS - Medication Medications: Active Medications Generic Name Dose Route Start Last Admin Trade Name Freq PRN Reason Stop Dose Admin Acetaminophen 650 mg 10/08/19 05:45 10/22/19 21:24 Tylenol PO 650 mg Q4H PRN Administration Headache/Fever/Mild Pain (1-3) Alprazolam 0.25 mg 10/29/19 09:49 10/29/19 11:29 Xanax PO 0.25 mg QIDPRN PRN Administration Anxiety Amlodipine Besylate 10 mg 10/15/19 09:00 10/29/19 08:43 Norvasc PO 10 mg DAILY KAYLIE Administration Ascorbic Acid 1,000 mg 10/14/19 09:00 10/29/19 08:43 Vitamin C PO 1,000 mg DAILY KAYLIE Administration Bisacodyl 10 mg 10/08/19 05:45 10/14/19 20:17 Dulcolax PO 10 mg DAILYPRN PRN Administration Constipation Dextrose/Water 25 gm 10/09/19 20:14 10/16/19 07:40 Dextrose 50% SLOW IVP 25 gm PRN PRN Administration Hypoglycemia Diphenhydramine HCl 25 mg 10/21/19 16:19 10/26/19 20:53 Benadryl PO 25 mg HSPRN PRN Administration Itching & Insomnia Enoxaparin Sodium 60 mg 10/08/19 21:00 10/29/19 08:44 Lovenox SC 60 mg 09,2099 KAYLIE Administration Famotidine 20 mg 10/08/19 09:00 10/29/19 08:43 Pepcid PO 20 mg BID KAYLIE Administration Insulin Glargine 9 units/ 0.09 mls @ 0 mls/hr 10/22/19 21:00 10/28/19 20:10 Miscellaneous Medication SC 0.09 mls HS KAYLIE Administration Insulin Human Lispro 0 units 10/19/19 16:47 10/29/19 11:30 Humalog SC 3 unit .AGGRESSIVE SLIDING PRN Administration Aggressive Correctional Scale Iron/Minerals/Multivitamins 1 tab 10/09/19 09:00 10/29/19 08:44 Theragran M PO 1 tab DAILY KAYLIE Administration Latanoprost 1 drop 10/08/19 21:00 10/28/19 20:40 Xalatan 0.005% Ophth Soln EA EYE 1 drop HS KAYLIE Administration Lisinopril 20 mg 10/16/19 07:00 10/29/19 08:42 Zestril PO 20 mg DAILY KAYLIE Administration Metformin HCl 1,000 mg 10/19/19 08:00 10/29/19 08:43 Glucophage PO 1,000 mg BID-WM KAYLIE Administration Methylprednisolone Sodium Succinate 60 mg 10/28/19 09:00 10/29/19 08:44 Solu-Medrol IVP 60 mg Q12HR KAYLIE Administration Mometasone Furoate 200 mcg 10/12/19 18:30 10/29/19 06:38 Asmanex Hfa 100 Mcg INH 2 puff BID-RT KAYLIE Administration Nystatin 500,000 units 10/19/19 21:00 10/29/19 11:30 Mycostatin SSW 500,000 units QID KAYLIE Administration Ondansetron HCl 4 mg 10/08/19 05:44 10/15/19 17:15 Zofran IVP 4 mg Q6H PRN Administration Nausea/Vomiting, use 1st Simethicone 80 mg 10/21/19 12:42 10/21/19 16:15 Mylicon Drops 40 Mg/0.6ml Drop PO 80 mg QID PRN Administration Gas Pain Sodium Chloride 10 ml 10/08/19 09:00 10/29/19 08:42 Flush - Normal Saline IVF 10 ml Q12HR KAYLIE Administration Sodium Chloride 10 ml 10/08/19 06:34 10/09/19 05:27 Flush - Normal Saline IVF 10 ml PRN PRN Administration Saline Flush Venlafaxine HCl 75 mg 10/08/19 21:00 10/29/19 08:42 Effexor PO 75 mg BID KAYLIE Administration Zinc Sulfate 220 mg 10/09/19 09:00 10/29/19 08:43 Zinc Sulfate PO 220 mg DAILY KAYLIE Administration Hosp A/P - Plan General Appearance: awake alert Eye: anicteric sclera ENT: no oropharyngeal lesions Neck: supple Heart: RRR, no murmur Respiratory: course breath sound, no wheezing, good air movement Gastrointestinal: soft, non-tender Extremities: no cyanosis, no edema Psychiatric: normal affect, normal behavior ASSESSMENT and plan: #Acute hypoxic respiratory failure secondary to COVID pneumonia #COVID pneumonia #Essential hypertension #Diabetes type 2 #Anxiety disorder 10/29/19 cont supportive cares, will give a trial of small diuretic, IV Lasix 20 mg x 1. cont current mgt. Wean O2 as hilary. Pul is following 10/28/19 Pt is comfortable on high flow, slow to progress. wean o2 as hilary. cont mgt including steroid and supportive cares. PT 10/27/2019 Patient remained stable on high flow, no significant changes overnight. Slow to progress. Patient will need more time. Appreciate liner checker's help. cont supportive cares 10/26/2019 Repeat chest x-ray appears to be stable. Continue high flow, wean O2 as tolerated, IV steroids. Piece Work Inspector is following, appreciate recommendation. Cont supportive cares. 10/25/2019 Continue management as per liner checker. Will repeat chest x-ray tomorrow, clinically improving. Wean O2 as tolerated. Continue IV steroids and breathing treatment. Supportive cares.
[2019-10-29] MEDS: Latanoprost 0.005% Ophth Soln 2.5 ml Bottle EA EYE SCH (20:50)
[2019-10-29] MEDS: PRE FILLED SC SCH (20:50)
[2019-10-29] MEDS: INSULIN GLARGINE SC SCH (20:50)
[2019-10-30 03:37] LABS: #Basophils 0.1 thou/uL (0.0-0.2); #Eosinphils 0.1 thou/uL (0.0-0.7); #Lymphocytes 0.6 thou/uL (1.20-3.40); #Monocytes 0.4 thou/uL (0.11-0.59); #Neutrophils 15.4 thou/uL (1.40-6.50); %Basophils 0.7 % (0.0-1.0); %Eosinophils 0.5 % (0.0-10.0); %Lymphocytes 3.7 % (21.0-51.0); %Monocytes 2.1 % (0.0-10.0); Hemoglobin 15.9 g/dL (12.0-16.0); Mean Corpuscular Volume 94.3 fL (78.0-98.0); Mean Platelet Volume 7.4 fL (7.4-10.4); Platelet Count 237 thou/uL (130-400); RBC Distribution Width 12.3 % (11.5-14.5); Red Blood Cell (RBC) Count 4.97 mill/uL (4.20-5.40); White Blood Cell (WBC) Count 16.5 thou/uL (4.8-10.8)
[2019-10-30 03:54] LABS: Anion Gap 15 mmol/L (10-20); BUN (Urea Nitrogen) 23 mg/dL (9.8-20.1); Calc. Creatinine Clearance 81 mL/min (70-130); Calcium 8.7 mg/dL (7.8-10.44); Carbon Dioxide 26 mmol/L (23-31); Chloride 100 mmol/L (98-107); Estimated GFR-MDRD 76; Glucose 242 mg/dL (83-110); Potassium 4.9 mmol/L (3.5-5.1); Sodium 136 mmol/L (136-145)
[2019-10-30] MEDS: HumaLOG 300 UNITS/3 ML VIAL SC PRN ×3 (06:08→17:13)
[2019-10-30] MEDS: Mometasone 100 MCG/PUFF (1 INHALER) INH SCH ×2 (06:08→20:13)
[2019-10-30] MEDS: Amlodipine 10 MG TAB PO SCH (08:56)
[2019-10-30] MEDS: Nystatin 500,000 UNITS/5 ML UDCUP SSW SCH ×4 (08:56→20:45)
[2019-10-30] MEDS: Zinc Sulfate 220 MG CAP PO SCH (08:57)
[2019-10-30] MEDS: Multivitamin W/ Minerals 1 TAB PO SCH (08:57)
[2019-10-30] MEDS: Lisinopril 20 MG TAB PO SCH (08:57)
[2019-10-30] MEDS: Ascorbic Acid 500 mg Chewable Tablet PO SCH (08:57)
[2019-10-30] MEDS: metFORMIN 500 MG TAB PO SCH ×2 (08:57→17:13)
[2019-10-30] MEDS: Famotidine 20 MG TAB PO SCH ×2 (08:57→20:40)
[2019-10-30] MEDS: Enoxaparin Sodium 60 MG/0.6 ML SYRINGE SC SCH ×2 (08:57→20:38)
[2019-10-30] MEDS: methylPREDNISolone Sod Succ/PF 125 MG/2 ML VIAL IVP SCH ×2 (08:58→20:41)
--- NOTE | 2019-10-30 09:45 | PRG ---
DATE OF SERVICE: 10/30/2019 SUBJECTIVE: The patient is doing much better. She has been weaned down to a nasal cannula. She had no acute complaints. OBJECTIVE: VITAL SIGNS: Temperature 98.1, O2 saturation was in the low to mid 90s, heart rate 91, and blood pressure 106/55. HEENT: Unremarkable. NECK: No JVD. CHEST: Clear anteriorly. CARDIAC: S1 and S2, regular. ABDOMEN: Soft. EXTREMITIES: No edema. LABORATORY DATA: Sodium 136, potassium 4.9, BUN 23, creatinine 0.7, and glucose 242. White blood cell count 16.5, hematocrit 46.8, and platelet count 237. ASSESSMENT: COVID-19 pneumonia-now in the convalescent phase. PLAN: 1. She can transfer up to the medical floor now that she is off high-flow oxygen. I would expect her O2 sats to be anywhere from the high 80s to the low 90s on the nasal cannula. Continue to increase activity as tolerated. 2. Continue methylprednisolone current dose with plans to wean again early next week. Job ID: [id number]
--- NOTE | 2019-10-30 16:38 | PDOC.HOSPP ---
- Subjective Subjective: Patient was seen examined at bedside. Discussed with nursing staff. Patient is improving overnight, was able to wean down to nasal cannula on 5 L. Initially plan to transfer to the floor today, however she became hypoxic so with accelerations. For that reason, Omid acute in the ICU overnight for monitor per nursing staff. - Objective Vital Signs & Weight: Vital Signs (12 hours) Temp Pulse Pulse Pulse BP BP BP 10/30/19 15:42 98.0 F 10/30/19 14:35 116 H 117 H 107/62 116/62 10/30/19 11:44 98.8 F 10/30/19 08:57 119/62 10/30/19 08:56 102 H 119/32 L 10/30/19 08:00 10/30/19 07:36 98.1 F Pulse Ox Pulse Ox Pulse Ox 10/30/19 15:42 10/30/19 14:35 90 L 92 L 10/30/19 11:44 10/30/19 08:57 10/30/19 08:56 10/30/19 08:00 91 L 10/30/19 07:36 Weight Admit Weight 170 lb 3.2 oz Weight 170 lb 3.2 oz Most Recent Monitor Data Heart Rate from ECG 113 NIBP 105/53 NIBP BP-Mean 70 Respiration from ECG 36 SpO2 95 I&O: 10/29/19 10/30/19 10/31/19 06:59 06:59 06:59 Intake Total 1580 940 Output Total 700 750 Balance 880 190 Result Diagrams: 10/30/19 03:06 10/30/19 03:06 Additional Labs: Accuchecks 10/30/19 10/30/19 10/29/19 11:04 05:37 20:34 POC Glucose 202 H 196 H 144 H 10/29/19 16:59 POC Glucose 278 H Hospitalist ROS - Medication Medications: Active Medications Generic Name Dose Route Start Last Admin Trade Name Freq PRN Reason Stop Dose Admin Acetaminophen 650 mg 10/08/19 05:45 10/22/19 21:24 Tylenol PO 650 mg Q4H PRN Administration Headache/Fever/Mild Pain (1-3) Alprazolam 0.25 mg 10/29/19 09:49 10/29/19 11:29 Xanax PO 0.25 mg QIDPRN PRN Administration Anxiety Amlodipine Besylate 10 mg 10/15/19 09:00 10/30/19 08:56 Norvasc PO 10 mg DAILY KAYLIE Administration Ascorbic Acid 1,000 mg 10/14/19 09:00 10/30/19 08:57 Vitamin C PO 1,000 mg DAILY KAYLIE Administration Bisacodyl 10 mg 10/08/19 05:45 10/14/19 20:17 Dulcolax PO 10 mg DAILYPRN PRN Administration Constipation Dextrose/Water 25 gm 10/09/19 20:14 10/16/19 07:40 Dextrose 50% SLOW IVP 25 gm PRN PRN Administration Hypoglycemia Diphenhydramine HCl 25 mg 10/21/19 16:19 10/26/19 20:53 Benadryl PO 25 mg HSPRN PRN Administration Itching & Insomnia Enoxaparin Sodium 60 mg 10/08/19 21:00 10/30/19 08:57 Lovenox SC 60 mg 0900,2100 KAYLIE Administration Famotidine 20 mg 10/08/19 09:00 10/30/19 08:57 Pepcid PO 20 mg BID KAYLIE Administration Insulin Glargine 9 units/ 0.09 mls @ 0 mls/hr 10/22/19 21:00 10/29/19 20:50 Miscellaneous Medication SC 0.09 mls HS KAYLIE Administration Insulin Human Lispro 0 units 10/19/19 16:47 10/30/19 11:35 Humalog SC 6 unit .AGGRESSIVE SLIDING PRN Administration Aggressive Correctional Scale Iron/Minerals/Multivitamins 1 tab 10/09/19 09:00 10/30/19 08:57 Theragran M PO 1 tab DAILY KAYLIE Administration Latanoprost 1 drop 10/08/19 21:00 10/29/19 20:50 Xalatan 0.005% Ophth Soln EA EYE 1 drop HS KAYLIE Administration Lisinopril 20 mg 10/16/19 07:00 10/30/19 08:57 Zestril PO 20 mg DAILY KAYLIE Administration Metformin HCl 1,000 mg 10/19/19 08:00 10/30/19 08:57 Glucophage PO 1,000 mg BID-WM KAYLIE Administration Methylprednisolone Sodium Succinate 60 mg 10/28/19 09:00 10/30/19 08:58 Solu-Medrol IVP 60 mg Q12HR KAYLIE Administration Mometasone Furoate 200 mcg 10/12/19 18:30 10/30/19 06:08 Asmanex Hfa 100 Mcg INH 2 puff BID-RT KAYLIE Administration Nystatin 500,000 units 10/19/19 21:00 10/30/19 11:35 Mycostatin SSW 500,000 units QID KAYLIE Administration Ondansetron HCl 4 mg 10/08/19 05:44 10/15/19 17:15 Zofran IVP 4 mg Q6H PRN Administration Nausea/Vomiting, use 1st Simethicone 80 mg 10/21/19 12:42 10/21/19 16:15 Mylicon Drops 40 Mg/0.6ml Drop PO 80 mg QID PRN Administration Gas Pain Sodium Chloride 10 ml 10/08/19 09:00 10/30/19 09:00 Flush - Normal Saline IVF 10 ml Q12HR KAYLIE Administration Sodium Chloride 10 ml 10/08/19 06:34 10/09/19 05:27 Flush - Normal Saline IVF 10 ml PRN PRN Administration Saline Flush Venlafaxine HCl 75 mg 10/08/19 21:00 10/30/19 08:57 Effexor PO 75 mg BID KAYLIE Administration Zinc Sulfate 220 mg 10/09/19 09:00 10/30/19 08:57 Zinc Sulfate PO 220 mg DAILY KAYLIE Administration Hosp A/P - Plan General Appearance: awake alert Eye: anicteric sclera ENT: no oropharyngeal lesions Neck: supple Heart: RRR, no murmur Respiratory: course breath sound, no wheezing, good air movement Gastrointestinal: soft, non-tender Extremities: no cyanosis, no edema Psychiatric: normal affect, normal behavior ASSESSMENT and plan: #Acute hypoxic respiratory failure secondary to COVID pneumonia #COVID pneumonia #Essential hypertension #Diabetes type 2 #Anxiety disorder 10/30/2019 Patient is progressing well. She was able to wean off of high flow this morning. Currently tolerating nasal cannula at 5 L. She had an episode of hypoxia earlier today, for that reason patient will be kept in the IMCU overnight for close monitor. If stable or slightly able to transfer to the floor in the a.m. We will continue with supportive cares, taper steroid. Appreciate Dr. Coronel. Cont PT 10/29/19 cont supportive cares, will give a trial of small diuretic, IV Lasix 20 mg x 1. cont current mgt. Wean O2 as hilary. Pul is following 10/28/19 Pt is comfortable on high flow, slow to progress. wean o2 as hilary. cont mgt including steroid and supportive cares. PT 10/27/2019 Patient remained stable on high flow, no significant changes overnight. Slow to progress. Patient will need more time. Appreciate thermometer maker's help. cont supportive cares 10/26/2019 Repeat chest x-ray appears to be stable. Continue high flow, wean O2 as tolerated, IV steroids. Sewer Pipe Sorter is following, appreciate recommendation. Cont supportive cares. 10/25/2019 Continue management as per thermometer maker. Will repeat chest x-ray tomorrow, clinically improving. Wean O2 as tolerated. Continue IV steroids and breathing treatment. Supportive cares.
[2019-10-30] MEDS: PRE FILLED SC SCH (20:39)
[2019-10-30] MEDS: INSULIN GLARGINE SC SCH (20:39)
[2019-10-30] MEDS: Latanoprost 0.005% Ophth Soln 2.5 ml Bottle EA EYE SCH (20:44)
[2019-10-31 03:40] LABS: #Basophils 0.1 thou/uL (0.0-0.2); #Eosinphils 0.1 thou/uL (0.0-0.7); #Lymphocytes 0.8 thou/uL (1.20-3.40); #Monocytes 0.3 thou/uL (0.11-0.59); #Neutrophils 13.1 thou/uL (1.40-6.50); %Basophils 0.4 % (0.0-1.0); %Eosinophils 0.7 % (0.0-10.0); %Lymphocytes 5.8 % (21.0-51.0); %Monocytes 2.2 % (0.0-10.0); %Neutrophils 90.9 % (42.0-75.0); Hemoglobin 15.8 g/dL (12.0-16.0); Mean Corpuscular HGB CONC 33.2 g/dL (32.0-36.0); Mean Corpuscular Hemoglobin 31.3 pg (27.0-31.0); Mean Corpuscular Volume 94.3 fL (78.0-98.0); Mean Platelet Volume 7.3 fL (7.4-10.4); Platelet Count 215 thou/uL (130-400); RBC Distribution Width 12.3 % (11.5-14.5); Red Blood Cell (RBC) Count 5.04 mill/uL (4.20-5.40); White Blood Cell (WBC) Count 14.4 thou/uL (4.8-10.8)
[2019-10-31 04:00] LABS: Anion Gap 14 mmol/L (10-20); BUN (Urea Nitrogen) 24 mg/dL (9.8-20.1); CRP (Inflammatory) Less than 0.50 mg/dL (= or < 0.5); Calc. Creatinine Clearance 86 mL/min (70-130); Calcium 8.7 mg/dL (7.8-10.44); Carbon Dioxide 27 mmol/L (23-31); Chloride 100 mmol/L (98-107); Estimated GFR-MDRD 81; Glucose 249 mg/dL (83-110); Magnesium 1.9 mg/dL (1.6-2.6); Sodium 136 mmol/L (136-145)
[2019-10-31] MEDS: HumaLOG 300 UNITS/3 ML VIAL SC PRN (06:00)
[2019-10-31] MEDS: Mometasone 100 MCG/PUFF (1 INHALER) INH SCH ×2 (08:01→20:05)
[2019-10-31] MEDS: Famotidine 20 MG TAB PO SCH ×2 (09:14→20:29)
[2019-10-31] MEDS: Ascorbic Acid 500 mg Chewable Tablet PO SCH (09:14)
[2019-10-31] MEDS: metFORMIN 500 MG TAB PO SCH ×2 (09:15→17:01)
[2019-10-31] MEDS: Amlodipine 10 MG TAB PO SCH (09:15)
[2019-10-31] MEDS: Zinc Sulfate 220 MG CAP PO SCH (09:15)
[2019-10-31] MEDS: Enoxaparin Sodium 60 MG/0.6 ML SYRINGE SC SCH (09:15)
[2019-10-31] MEDS: Multivitamin W/ Minerals 1 TAB PO SCH (09:15)
[2019-10-31] MEDS: methylPREDNISolone Sod Succ/PF 125 MG/2 ML VIAL IVP SCH ×2 (09:15→20:30)
[2019-10-31] MEDS: Lisinopril 20 MG TAB PO SCH (09:15)
[2019-10-31] MEDS: Nystatin 500,000 UNITS/5 ML UDCUP SSW SCH ×4 (09:16→20:29)
--- NOTE | 2019-10-31 11:20 | PRG ---
DATE OF SERVICE: 10/31/2019 SUBJECTIVE: The patient yesterday because she desaturated with any kind of movement. Today, she feels reasonably well and has no acute complaints. OBJECTIVE: VITAL SIGNS: Temperature 97.4, pulse rate 112, and blood pressure 102/59. Her O2 saturation was 94% on 5 L at rest. HEENT: Unremarkable. NECK: No adenopathy or JVD. LUNGS: Clear. CARDIAC: S1 and S2. Regular. ABDOMEN: Soft. EXTREMITIES: No edema. LABORATORY DATA: White cell count 14, hematocrit 47.5, and platelet count 215. Sodium 136, potassium 5, chloride 100, BUN 24, creatinine 0.7, and glucose 249. ASSESSMENT: 1. COVID-19 pneumonia with severe hypoxemia. 2. Developing hyperkalemia-etiology not clear. RECOMMENDATIONS: 1. Continue high-dose steroids. 2. If potassium continues to increase, you might consider stopping the SHARLENE inhibitor temporarily. Job ID: [id number]
--- NOTE | 2019-10-31 11:39 | PDOC.HOSPP ---
- Subjective Encounter Date: 10/31/19 Encounter Time: 10:30 Subjective: She does have a hard of hearing. She is satting 97% with 5 L oxygen. States that her daughter lives close by but she lives alone for the most part. - Objective Vital Signs & Weight: Vital Signs (12 hours) Temp BP Pulse Ox 10/31/19 11:19 98.0 F 10/31/19 09:15 119/62 10/31/19 07:49 93 L 10/31/19 07:30 97.4 F L 10/31/19 03:53 97.4 F L 10/30/19 23:43 97.6 F Weight Admit Weight 170 lb 3.2 oz Weight 170 lb 3.2 oz Most Recent Monitor Data Heart Rate from ECG 112 NIBP 102/59 NIBP BP-Mean 73 Respiration from ECG 21 SpO2 84 I&O: 10/30/19 10/31/19 11/01/19 06:59 06:59 06:59 Intake Total 940 940 Output Total 750 750 Balance 190 190 Result Diagrams: 10/31/19 03:20 10/31/19 03:20 Additional Labs: Accuchecks 10/31/19 10/31/19 10/30/19 10:50 05:48 20:37 POC Glucose 176 H 179 H 115 H 10/30/19 17:21 POC Glucose 229 H Hospitalist ROS - Medication Medications: Active Medications Generic Name Dose Route Start Last Admin Trade Name Freq PRN Reason Stop Dose Admin Acetaminophen 650 mg 10/08/19 05:45 10/22/19 21:24 Tylenol PO 650 mg Q4H PRN Administration Headache/Fever/Mild Pain (1-3) Alprazolam 0.25 mg 10/29/19 09:49 10/29/19 11:29 Xanax PO 0.25 mg QIDPRN PRN Administration Anxiety Amlodipine Besylate 10 mg 10/15/19 09:00 10/31/19 09:15 Norvasc PO 10 mg DAILY KAYLIE Administration Ascorbic Acid 1,000 mg 10/14/19 09:00 10/31/19 09:14 Vitamin C PO 1,000 mg DAILY KAYLIE Administration Bisacodyl 10 mg 10/08/19 05:45 10/14/19 20:17 Dulcolax PO 10 mg DAILYPRN PRN Administration Constipation Dextrose/Water 25 gm 10/09/19 20:14 10/16/19 07:40 Dextrose 50% SLOW IVP 25 gm PRN PRN Administration Hypoglycemia Diphenhydramine HCl 25 mg 10/21/19 16:19 10/26/19 20:53 Benadryl PO 25 mg HSPRN PRN Administration Itching & Insomnia Enoxaparin Sodium 60 mg 10/08/19 21:00 10/31/19 09:15 Lovenox SC 60 mg 0900,2100 KAYLIE Administration Famotidine 20 mg 10/08/19 09:00 10/31/19 09:14 Pepcid PO 20 mg BID KAYLIE Administration Insulin Glargine 9 units/ 0.09 mls @ 0 mls/hr 10/22/19 21:00 10/30/19 20:39 Miscellaneous Medication SC 0.09 mls HS KAYLIE Administration Insulin Human Lispro 0 units 10/19/19 16:47 10/31/19 06:00 Humalog SC 3 unit .AGGRESSIVE SLIDING PRN Administration Aggressive Correctional Scale Iron/Minerals/Multivitamins 1 tab 10/09/19 09:00 10/31/19 09:15 Theragran M PO 1 tab DAILY KAYLIE Administration Latanoprost 1 drop 10/08/19 21:00 10/30/19 20:44 Xalatan 0.005% Ophcele Soljacquelin EA EYE 1 drop HS KAYLIE Administration Lisinopril 20 mg 10/16/19 07:00 10/31/19 09:15 Zestril PO 20 mg DAILY KAYLIE Administration Metformin HCl 1,000 mg 10/19/19 08:00 10/31/19 09:15 Glucophage PO 1,000 mg BID-WM KAYLIE Administration Methylprednisolone Sodium Succinate 60 mg 10/28/19 09:00 10/31/19 09:15 Solu-Medrol IVP 60 mg Q12HR KAYLIE Administration Mometasone Furoate 200 mcg 10/12/19 18:30 10/31/19 08:01 Asmanex Hfa 100 Mcg INH 1 puff BID-RT KAYLIE Administration Nystatin 500,000 units 10/19/19 21:00 10/31/19 09:16 Mycostatin SSW 500,000 units QID KAYLIE Administration Ondansetron HCl 4 mg 10/08/19 05:44 10/15/19 17:15 Zofran IVP 4 mg Q6H PRN Administration Nausea/Vomiting, use 1st Simethicone 80 mg 10/21/19 12:42 10/21/19 16:15 Mylicon Drops 40 Mg/0.6ml Drop PO 80 mg QID PRN Administration Gas Pain Sodium Chloride 10 ml 10/08/19 09:00 10/31/19 09:16 Flush - Normal Saline IVF 10 ml Q12HR KAYLIE Administration Sodium Chloride 10 ml 10/08/19 06:34 10/09/19 05:27 Flush - Normal Saline IVF 10 ml PRN PRN Administration Saline Flush Venlafaxine HCl 75 mg 10/08/19 21:00 10/31/19 09:15 Effexor PO 75 mg BID KAYLIE Administration Zinc Sulfate 220 mg 10/09/19 09:00 10/31/19 09:15 Zinc Sulfate PO 220 mg DAILY KAYLIE Administration - Exam General Appearance: NAD, awake alert Eye: PERRL ENT: normocephalic atraumatic Neck: supple Heart: RRR Respiratory: CTAB, normal chest expansion Gastrointestinal: soft, normal bowel sounds Neurological: no focal deficits Psychiatric: A&O x 3 Hosp A/P - Plan #Acute hypoxic respiratory failure secondary to COVID pneumonia #COVID pneumonia #Essential hypertension #Diabetes type 2 #Anxiety disorder -Taper steroid dose--currently at Solu-Medrol 60 mg twice a day -Ongoing physical therapy Okay to transfer to medical floor if we can wean off oxygen to at least 2 L prior to transfer her to the floor Leukocytosis -Likely due to steroid use as COVID tend to have leukopenia. - Borderline hyperkalemia -Potassium 5 today and normal creatinine and magnesium within normal range -Hold lisinopril Type 2 diabetes mellitus on Lantus as well as sliding scale along with metformin Disposition -Patient lives alone but daughter lives nearby
[2019-10-31] MEDS: INSULIN GLARGINE SC SCH (20:29)
[2019-10-31] MEDS: Apixaban 5 MG TAB PO SCH (20:29)
[2019-10-31] MEDS: PRE FILLED SC SCH (20:29)
[2019-10-31] MEDS: Latanoprost 0.005% Ophth Soln 2.5 ml Bottle EA EYE SCH (20:32)
[2019-11-01] MEDS: HumaLOG 300 UNITS/3 ML VIAL SC PRN ×2 (06:06→17:14)
[2019-11-01] MEDS: Mometasone 100 MCG/PUFF (1 INHALER) INH SCH ×2 (07:27→19:34)
[2019-11-01] MEDS: Famotidine 20 MG TAB PO SCH ×2 (08:28→20:10)
[2019-11-01] MEDS: Nystatin 500,000 UNITS/5 ML UDCUP SSW SCH ×4 (08:28→20:10)
[2019-11-01] MEDS: Apixaban 5 MG TAB PO SCH ×2 (08:29→20:10)
[2019-11-01] MEDS: Amlodipine 10 MG TAB PO SCH (08:29)
[2019-11-01] MEDS: metFORMIN 500 MG TAB PO SCH ×2 (08:29→17:14)
[2019-11-01] MEDS: Zinc Sulfate 220 MG CAP PO SCH (08:29)
[2019-11-01] MEDS: Ascorbic Acid 500 mg Chewable Tablet PO SCH (08:29)
[2019-11-01] MEDS: Multivitamin W/ Minerals 1 TAB PO SCH (08:29)
[2019-11-01] MEDS: methylPREDNISolone Sod Succ/PF 125 MG/2 ML VIAL IVP SCH (08:30)
[2019-11-01 11:28] LABS: Anion Gap 11 mmol/L (10-20); BUN (Urea Nitrogen) 25 mg/dL (9.8-20.1); Calc. Creatinine Clearance 88 mL/min (70-130); Calcium 8.8 mg/dL (7.8-10.44); Carbon Dioxide 30 mmol/L (23-31); Chloride 101 mmol/L (98-107); Estimated GFR-MDRD 83; Glucose 208 mg/dL (83-110); Potassium 4.4 mmol/L (3.5-5.1); Sodium 138 mmol/L (136-145)
--- NOTE | 2019-11-01 12:27 | PRG ---
DATE OF SERVICE: 11/01/2019 SUBJECTIVE: The patient remains hypoxic requiring 5 L nasal cannula. She desaturates with talking. OBJECTIVE: VITAL SIGNS: Temperature 97.8, O2 saturation 94% on 5 L, blood pressure 120/72. HEENT: Unremarkable. NECK: No JVD. CHEST: Few crackles. CARDIAC: S1 and S2. Regular. ABDOMEN: Soft. EXTREMITIES: No edema. LABORATORY DATA: Sodium 138, BUN 25, creatinine 0.6, glucose 208. ASSESSMENT: COVID-19 pneumonia. PLAN: The patient has been switched over to Eliquis by the hospitalist group. She remains on a fairly substantial dose of IV steroids. I am going to taper that some more today. Job ID: [id number]
--- NOTE | 2019-11-01 13:33 | PDOC.HOSPP ---
- Subjective Encounter Date: 11/01/19 Encounter Time: 11:10 Subjective: Patient doing well she is sitting in the chair. She is still on 5 L oxygen sats around 91%. I discussed with RN. IV steroids being tapered. - Objective Vital Signs & Weight: Vital Signs (12 hours) Temp Pulse BP BP Pulse Ox Pulse Ox 11/01/19 11:33 98.3 F 11/01/19 09:15 106 H 107/66 91 L 11/01/19 08:29 119/62 11/01/19 07:38 97 11/01/19 07:17 97.8 F 11/01/19 03:36 97.4 F L Weight Admit Weight 170 lb 3.2 oz Weight 170 lb 3.2 oz Most Recent Monitor Data Heart Rate from ECG 94 NIBP 120/72 NIBP BP-Mean 88 Respiration from ECG 24 SpO2 91 I&O: 10/31/19 11/01/19 11/02/19 06:59 06:59 06:59 Intake Total 940 1090 Output Total 750 875 Balance 190 215 Result Diagrams: 10/31/19 03:20 11/01/19 10:22 Additional Labs: Accuchecks 11/01/19 11/01/19 10/31/19 10:47 05:47 20:34 POC Glucose 177 H 188 H 165 H 10/31/19 16:56 POC Glucose 197 H Hospitalist ROS - Medication Medications: Active Medications Generic Name Dose Route Start Last Admin Trade Name Freq PRN Reason Stop Dose Admin Acetaminophen 650 mg 10/08/19 05:45 10/22/19 21:24 Tylenol PO 650 mg Q4H PRN Administration Headache/Fever/Mild Pain (1-3) Alprazolam 0.25 mg 10/29/19 09:49 10/29/19 11:29 Xanax PO 0.25 mg QIDPRN PRN Administration Anxiety Amlodipine Besylate 10 mg 10/15/19 09:00 11/01/19 08:29 Norvasc PO 10 mg DAILY KAYLIE Administration Apixaban 5 mg 10/31/19 21:00 11/01/19 08:29 Eliquis PO 5 mg BID KAYLIE Administration Ascorbic Acid 1,000 mg 10/14/19 09:00 11/01/19 08:29 Vitamin C PO 1,000 mg DAILY KAYLIE Administration Bisacodyl 10 mg 10/08/19 05:45 10/14/19 20:17 Dulcolax PO 10 mg DAILYPRN PRN Administration Constipation Dextrose/Water 25 gm 10/09/19 20:14 10/16/19 07:40 Dextrose 50% SLOW IVP 25 gm PRN PRN Administration Hypoglycemia Diphenhydramine HCl 25 mg 10/21/19 16:19 10/26/19 20:53 Benadryl PO 25 mg HSPRN PRN Administration Itching & Insomnia Famotidine 20 mg 10/08/19 09:00 11/01/19 08:28 Pepcid PO 20 mg BID KAYLIE Administration Insulin Glargine 9 units/ 0.09 mls @ 0 mls/hr 10/22/19 21:00 10/31/19 20:29 Miscellaneous Medication SC 0.09 mls HS KAYLIE Administration Insulin Human Lispro 0 units 10/19/19 16:47 11/01/19 06:06 Humalog SC 3 unit .AGGRESSIVE SLIDING PRN Administration Aggressive Correctional Scale Iron/Minerals/Multivitamins 1 tab 10/09/19 09:00 11/01/19 08:29 Theragran M PO 1 tab DAILY KAYLIE Administration Latanoprost 1 drop 10/08/19 21:00 10/31/19 20:32 Xalatan 0.005% Ophth Soln EA EYE 1 drop HS KAYLIE Administration Metformin HCl 1,000 mg 10/19/19 08:00 11/01/19 08:29 Glucophage PO 1,000 mg BID-WM KAYLIE Administration Mometasone Furoate 200 mcg 10/12/19 18:30 11/01/19 07:27 Asmanex Hfa 100 Mcg INH 2 puff BID-RT KAYLIE Administration Nystatin 500,000 units 10/19/19 21:00 11/01/19 08:28 Mycostatin SSW 500,000 units QID KAYLIE Administration Ondansetron HCl 4 mg 10/08/19 05:44 10/15/19 17:15 Zofran IVP 4 mg Q6H PRN Administration Nausea/Vomiting, use 1st Simethicone 80 mg 10/21/19 12:42 10/21/19 16:15 Mylicon Drops 40 Mg/0.6ml Drop PO 80 mg QID PRN Administration Gas Pain Sodium Chloride 10 ml 10/08/19 09:00 11/01/19 08:31 Flush - Normal Saline IVF 10 ml Q12HR KAYLIE Administration Sodium Chloride 10 ml 10/08/19 06:34 10/09/19 05:27 Flush - Normal Saline IVF 10 ml PRN PRN Administration Saline Flush Venlafaxine HCl 75 mg 10/08/19 21:00 11/01/19 08:29 Effexor PO 75 mg BID KAYLIE Administration Zinc Sulfate 220 mg 10/09/19 09:00 11/01/19 08:29 Zinc Sulfate PO 220 mg DAILY KAYLIE Administration - Exam General Appearance: NAD, awake alert Eye: PERRL ENT: normocephalic atraumatic Neck: supple Respiratory: normal chest expansion Neurological: no focal deficits Psychiatric: A&O x 3 Hosp A/P - Plan #Acute hypoxic respiratory failure secondary to COVID pneumonia #COVID pneumonia #Essential hypertension #Diabetes type 2 #Anxiety disorder -Taper steroid dose--currently at Solu-Medrol 60 mg twice a day -Ongoing physical therapy Okay to transfer to medical floor if we can wean off oxygen to at least 2 L prior to transfer her to the floor Leukocytosis -Likely due to steroid use as COVID tend to have leukopenia. - Borderline hyperkalemia -Potassium 5 today and normal creatinine and magnesium within normal range -Hold lisinopril Type 2 diabetes mellitus on Lantus as well as sliding scale along with metformin Disposition -Patient lives alone but daughter lives nearby Hypoxia secondary to COVID pneumonia -Still requiring 5 L oxygen specifically during ambulation -Stable to move to obs unit from [facility] -On tapering dose of steroid Rehab facilities preferred to have a negative test for rehab placement. We will re-swab again as patient would benefit with pulmonary rehab.
[2019-11-01] MEDS: Latanoprost 0.005% Ophth Soln 2.5 ml Bottle EA EYE SCH (20:09)
[2019-11-01] MEDS: methylPREDNISolone Sod Succ 40 MG VIAL IVP SCH (20:10)
[2019-11-01] MEDS: INSULIN GLARGINE SC SCH (20:12)
[2019-11-01] MEDS: PRE FILLED SC SCH (20:12)
[2019-11-02] MEDS: Mometasone 100 MCG/PUFF (1 INHALER) INH SCH ×2 (08:25→18:55)
[2019-11-02] MEDS: methylPREDNISolone Sod Succ 40 MG VIAL IVP SCH (08:37)
[2019-11-02] MEDS: Nystatin 500,000 UNITS/5 ML UDCUP SSW SCH ×4 (08:37→21:22)
[2019-11-02] MEDS: Zinc Sulfate 220 MG CAP PO SCH (08:38)
[2019-11-02] MEDS: Famotidine 20 MG TAB PO SCH ×2 (08:38→21:22)
[2019-11-02] MEDS: Amlodipine 10 MG TAB PO SCH (08:39)
[2019-11-02] MEDS: Multivitamin W/ Minerals 1 TAB PO SCH (08:39)
[2019-11-02] MEDS: metFORMIN 500 MG TAB PO SCH ×2 (08:39→17:28)
[2019-11-02] MEDS: Apixaban 5 MG TAB PO SCH ×2 (08:39→21:23)
[2019-11-02] MEDS: Ascorbic Acid 500 mg Chewable Tablet PO SCH (08:39)
--- NOTE | 2019-11-02 09:37 | PRG ---
DATE OF SERVICE: 11/02/2019 SUBJECTIVE: The patient is continuing to desaturate with any movement or conversation. OBJECTIVE: VITAL SIGNS: On exam, temperature 97.9, pulse 97, blood pressure 110/70, and O2 saturation 98%. HEENT: Unremarkable. NECK: No JVD. LUNGS: With crackles. CARDIAC: S1 and S2. Regular. ABDOMEN: Soft. EXTREMITIES: No edema. ASSESSMENT: COVID-19 pneumonia with continued hypoxemia. PLAN: 1. Switch over to oral steroids. 2. Continue oxygen. Anticipate this taking some time to get better. Job ID: [id number]
--- NOTE | 2019-11-02 12:27 | PDOC.HOSPP ---
- Subjective Encounter Date: 11/02/19 Encounter Time: 12:00 Subjective: Patient is resting she appears getting better. However when she gets up her sats dropped significantly to 70s. She would not be able to go to the rehab or [facility] facility with this condition. She would not be able to come to the floor either. - Objective Vital Signs & Weight: Vital Signs (12 hours) Temp BP Pulse Ox 11/02/19 11:17 98.2 F 11/02/19 08:39 119/62 11/02/19 08:00 97.9 F 97 11/02/19 04:00 98.4 F Weight Admit Weight 170 lb 3.2 oz Weight 170 lb 3.2 oz Most Recent Monitor Data Heart Rate from ECG 112 NIBP 116/66 NIBP BP-Mean 82 Respiration from ECG 35 SpO2 96 I&O: 11/01/19 11/02/19 11/03/19 06:59 06:59 06:59 Intake Total 1090 1290 Output Total 875 1375 Balance 215 -85 Result Diagrams: 10/31/19 03:20 11/01/19 10:22 Additional Labs: Accuchecks 11/02/19 11/02/19 11/01/19 10:35 06:12 20:14 POC Glucose 201 H 138 H 115 H 11/01/19 16:49 POC Glucose 173 H Hospitalist ROS - Medication Medications: Active Medications Generic Name Dose Route Start Last Admin Trade Name Freq PRN Reason Stop Dose Admin Acetaminophen 650 mg 10/08/19 05:45 10/22/19 21:24 Tylenol PO 650 mg Q4H PRN Administration Headache/Fever/Mild Pain (1-3) Alprazolam 0.25 mg 10/29/19 09:49 10/29/19 11:29 Xanax PO 0.25 mg QIDPRN PRN Administration Anxiety Amlodipine Besylate 10 mg 10/15/19 09:00 11/02/19 08:39 Norvasc PO 10 mg DAILY KAYLIE Administration Apixaban 5 mg 10/31/19 21:00 11/02/19 08:39 Eliquis PO 5 mg BID KAYLIE Administration Ascorbic Acid 1,000 mg 10/14/19 09:00 11/02/19 08:39 Vitamin C PO 1,000 mg DAILY KAYLIE Administration Bisacodyl 10 mg 10/08/19 05:45 10/14/19 20:17 Dulcolax PO 10 mg DAILYPRN PRN Administration Constipation Dextrose/Water 25 gm 10/09/19 20:14 10/16/19 07:40 Dextrose 50% SLOW IVP 25 gm PRN PRN Administration Hypoglycemia Diphenhydramine HCl 25 mg 10/21/19 16:19 10/26/19 20:53 Benadryl PO 25 mg HSPRN PRN Administration Itching & Insomnia Famotidine 20 mg 10/08/19 09:00 11/02/19 08:38 Pepcid PO 20 mg BID KAYLIE Administration Insulin Glargine 9 units/ 0.09 mls @ 0 mls/hr 10/22/19 21:00 11/01/19 20:12 Miscellaneous Medication SC 0.09 mls HS KAYLIE Administration Insulin Human Lispro 0 units 10/19/19 16:47 11/01/19 17:14 Humalog SC 3 unit .AGGRESSIVE SLIDING PRN Administration Aggressive Correctional Scale Iron/Minerals/Multivitamins 1 tab 10/09/19 09:00 11/02/19 08:39 Theragran M PO 1 tab DAILY KAYLIE Administration Latanoprost 1 drop 10/08/19 21:00 11/01/19 20:09 Xalatan 0.005% Ophth Soln EA EYE 1 drop HS KAYLIE Administration Metformin HCl 1,000 mg 10/19/19 08:00 11/02/19 08:39 Glucophage PO 1,000 mg BID-WM KAYLIE Administration Mometasone Furoate 200 mcg 10/12/19 18:30 11/02/19 08:25 Asmanex Hfa 100 Mcg INH 1 puff BID-RT KAYLIE Administration Nystatin 500,000 units 10/19/19 21:00 11/02/19 08:37 Mycostatin SSW 500,000 units QID KAYLIE Administration Ondansetron HCl 4 mg 10/08/19 05:44 10/15/19 17:15 Zofran IVP 4 mg Q6H PRN Administration Nausea/Vomiting, use 1st Simethicone 80 mg 10/21/19 12:42 10/21/19 16:15 Mylicon Drops 40 Mg/0.6ml Drop PO 80 mg QID PRN Administration Gas Pain Sodium Chloride 10 ml 10/08/19 09:00 11/02/19 08:41 Flush - Normal Saline IVF 10 ml Q12HR KAYLIE Administration Sodium Chloride 10 ml 10/08/19 06:34 10/09/19 05:27 Flush - Normal Saline IVF 10 ml PRN PRN Administration Saline Flush Venlafaxine HCl 75 mg 10/08/19 21:00 11/02/19 08:39 Effexor PO 75 mg BID KAYLIE Administration Zinc Sulfate 220 mg 10/09/19 09:00 11/02/19 08:38 Zinc Sulfate PO 220 mg DAILY KAYLIE Administration - Exam General Appearance: NAD, awake alert Eye: PERRL ENT: normocephalic atraumatic Neck: supple Heart: RRR Respiratory: CTAB, normal chest expansion Gastrointestinal: soft, normal bowel sounds Neurological: cranial nerve grossly intact, no focal deficits Psychiatric: A&O x 3 Hosp A/P - Plan #Acute hypoxic respiratory failure secondary to COVID pneumonia #COVID pneumonia #Essential hypertension #Diabetes type 2 #Anxiety disorder -Taper steroid dose--currently at Solu-Medrol 60 mg twice a day -Ongoing physical therapy Okay to transfer to medical floor if we can wean off oxygen to at least 2 L prior to transfer her to the floor Leukocytosis -Likely due to steroid use as COVID tend to have leukopenia. - Borderline hyperkalemia -Potassium 5 today and normal creatinine and magnesium within normal range -Hold lisinopril Type 2 diabetes mellitus on Lantus as well as sliding scale along with metformin Disposition -Patient lives alone but daughter lives nearby 23 Hypoxia secondary to COVID pneumonia -Still requiring 5 L oxygen specifically during ambulation -Stable to move to obs unit from [facility] -On tapering dose of steroid Rehab facilities preferred to have a negative test for rehab placement. We will re-swab again as patient would benefit with pulmonary rehab. 24th Dyspnea on mild exertion such as standing -when she gets up her sats dropped significantly to 70s. She would not be able to go to the rehab or [facility] facility with this condition. She would not be able to come to the floor either with this extent of hypoxia on exertion. Likely this is due to severe pulmonary deconditioning with the recent COVID pneumonia Continue close monitoring and physical therapy treatment ongoing as she can tolerate.
[2019-11-02 14:57] LABS: SARS-CoV-2 MS2 Positive; SARS-CoV-2 N Gene Positive; SARS-CoV-2 S Gene Positive; SARS-CoV-2 by NAA DETECTED (NotDetected); SARS-CoV-2 orf1ab Positive
[2019-11-02] MEDS: predniSONE 20 MG TAB PO SCH (21:22)
[2019-11-02] MEDS: Latanoprost 0.005% Ophth Soln 2.5 ml Bottle EA EYE SCH (21:23)
[2019-11-02] MEDS: PRE FILLED SC SCH (21:23)
[2019-11-02] MEDS: INSULIN GLARGINE SC SCH (21:23)
[2019-11-03 03:48] LABS: Anion Gap 12 mmol/L (10-20); BUN (Urea Nitrogen) 29 mg/dL (9.8-20.1); Calc. Creatinine Clearance 83 mL/min (70-130); Calcium 8.9 mg/dL (7.8-10.44); Carbon Dioxide 31 mmol/L (23-31); Chloride 98 mmol/L (98-107); Estimated GFR-MDRD 77; Glucose 195 mg/dL (83-110); Sodium 136 mmol/L (136-145)
[2019-11-03] MEDS: HumaLOG 300 UNITS/3 ML VIAL SC PRN ×2 (06:10→17:41)
[2019-11-03] MEDS: Mometasone 100 MCG/PUFF (1 INHALER) INH SCH ×3 (07:41→18:54)
[2019-11-03] MEDS: metFORMIN 500 MG TAB PO SCH ×2 (09:17→17:41)
[2019-11-03] MEDS: Nystatin 500,000 UNITS/5 ML UDCUP SSW SCH ×4 (09:17→20:28)
[2019-11-03] MEDS: Famotidine 20 MG TAB PO SCH ×2 (09:18→20:28)
[2019-11-03] MEDS: Ascorbic Acid 500 mg Chewable Tablet PO SCH (09:18)
[2019-11-03] MEDS: Amlodipine 10 MG TAB PO SCH (09:18)
[2019-11-03] MEDS: Multivitamin W/ Minerals 1 TAB PO SCH (09:18)
[2019-11-03] MEDS: Zinc Sulfate 220 MG CAP PO SCH (09:18)
[2019-11-03] MEDS: Apixaban 5 MG TAB PO SCH ×2 (09:18→20:29)
[2019-11-03] MEDS: predniSONE 20 MG TAB PO SCH ×2 (09:18→20:28)
--- NOTE | 2019-11-03 10:44 | PRG ---
DATE OF SERVICE: 11/03/2019 SUBJECTIVE: Ms. Rojas is about the same. She remains on nasal cannula at 5 L. She is not desaturating as much when she talks to me today. OBJECTIVE: VITAL SIGNS: Demonstrate O2 saturation around 95%, pulse 107, blood pressure 104/69. HEENT: Unremarkable. NECK: No adenopathy or JVD. LUNGS: She has few crackles. CARDIAC: S1, S2. Regular. ABDOMEN: Soft. EXTREMITIES: No edema. LABORATORY DATA: Sodium 136, potassium 5, chloride 98, CO2 of 31, BUN 29, creatinine 0.7, glucose 195. ASSESSMENT: 1. COVID-19 pneumonia. 2. Mild hyperkalemia. 3. Persistent hypoxemia. PLAN: 1. Overall, she is slowly getting better. I think she would be stable to transfer out to the COVID floor if okay with hospitalist team. She was switched over to oral steroids yesterday. No plan to taper at this time. 2. Continue anticoagulation with Eliquis. Job ID: [id number]
--- NOTE | 2019-11-03 12:35 | PDOC.HOSPP ---
- Subjective Encounter Date: 11/03/19 Encounter Time: 11:00 Subjective: Patient still having desats. track manager at bedside. Plan for rehab evaluation. - Objective Vital Signs & Weight: Vital Signs (12 hours) Temp BP Pulse Ox 11/03/19 11:36 97.6 F 11/03/19 09:18 119/62 11/03/19 08:00 95 11/03/19 07:28 97.3 F L 11/03/19 04:00 98.4 F Weight Admit Weight 170 lb 3.2 oz Weight 170 lb 3.2 oz Most Recent Monitor Data Heart Rate from ECG 126 NIBP 121/67 NIBP BP-Mean 85 Respiration from ECG 33 SpO2 97 I&O: 11/02/19 11/03/19 11/04/19 06:59 06:59 06:59 Intake Total 1290 800 Output Total 1375 975 Balance -85 -175 Result Diagrams: 10/31/19 03:20 11/03/19 03:00 Additional Labs: Accuchecks 11/03/19 11/03/19 11/02/19 10:59 06:01 21:27 POC Glucose 177 H 200 H 129 H 11/02/19 16:54 POC Glucose 144 H Hospitalist ROS - Medication Medications: Active Medications Generic Name Dose Route Start Last Admin Trade Name Freq PRN Reason Stop Dose Admin Acetaminophen 650 mg 10/08/19 05:45 10/22/19 21:24 Tylenol PO 650 mg Q4H PRN Administration Headache/Fever/Mild Pain (1-3) Alprazolam 0.25 mg 10/29/19 09:49 10/29/19 11:29 Xanax PO 0.25 mg QIDPRN PRN Administration Anxiety Amlodipine Besylate 10 mg 10/15/19 09:00 11/03/19 09:18 Norvasc PO 10 mg DAILY KAYLIE Administration Apixaban 5 mg 10/31/19 21:00 11/03/19 09:18 Eliquis PO 5 mg BID KAYLIE Administration Ascorbic Acid 1,000 mg 10/14/19 09:00 11/03/19 09:18 Vitamin C PO 1,000 mg DAILY KAYLIE Administration Bisacodyl 10 mg 10/08/19 05:45 10/14/19 20:17 Dulcolax PO 10 mg DAILYPRN PRN Administration Constipation Dextrose/Water 25 gm 10/09/19 20:14 10/16/19 07:40 Dextrose 50% SLOW IVP 25 gm PRN PRN Administration Hypoglycemia Diphenhydramine HCl 25 mg 10/21/19 16:19 10/26/19 20:53 Benadryl PO 25 mg HSPRN PRN Administration Itching & Insomnia Famotidine 20 mg 10/08/19 09:00 11/03/19 09:18 Pepcid PO 20 mg BID KAYLIE Administration Insulin Human Lispro 0 units 10/19/19 16:47 11/03/19 06:10 Humalog SC 3 unit .AGGRESSIVE SLIDING PRN Administration Aggressive Correctional Scale Iron/Minerals/Multivitamins 1 tab 10/09/19 09:00 11/03/19 09:18 Theragran M PO 1 tab DAILY KAYLIE Administration Latanoprost 1 drop 10/08/19 21:00 11/02/19 21:23 Xalatan 0.005% Ophth Soln EA EYE 1 drop HS KAYLIE Administration Metformin HCl 1,000 mg 10/19/19 08:00 11/03/19 09:17 Glucophage PO 1,000 mg BID-WM KAYLIE Administration Mometasone Furoate 200 mcg 10/12/19 18:30 11/03/19 07:41 Asmanex Hfa 100 Mcg INH 2 puff BID-RT KAYLIE Administration Nystatin 500,000 units 10/19/19 21:00 11/03/19 11:18 Mycostatin SSW 500,000 units QID KAYLIE Administration Ondansetron HCl 4 mg 10/08/19 05:44 10/15/19 17:15 Zofran IVP 4 mg Q6H PRN Administration Nausea/Vomiting, use 1st Prednisone 30 mg 11/02/19 21:00 11/03/19 09:18 Prednisone PO 30 mg BID KAYLIE Administration Simethicone 80 mg 10/21/19 12:42 10/21/19 16:15 Mylicon Drops 40 Mg/0.6ml Drop PO 80 mg QID PRN Administration Gas Pain Sodium Chloride 10 ml 10/08/19 09:00 11/03/19 09:19 Flush - Normal Saline IVF 10 ml Q12HR KAYLIE Administration Sodium Chloride 10 ml 10/08/19 06:34 10/09/19 05:27 Flush - Normal Saline IVF 10 ml PRN PRN Administration Saline Flush Venlafaxine HCl 75 mg 10/08/19 21:00 11/03/19 09:18 Effexor PO 75 mg BID KAYLIE Administration Zinc Sulfate 220 mg 10/09/19 09:00 11/03/19 09:18 Zinc Sulfate PO 220 mg DAILY KAYLIE Administration - Exam General Appearance: NAD, awake alert Eye: PERRL ENT: normocephalic atraumatic Neck: supple Heart: RRR Respiratory: normal chest expansion Neurological: no focal deficits Psychiatric: A&O x 3 Hosp A/P - Plan #Acute hypoxic respiratory failure secondary to COVID pneumonia #COVID pneumonia #Essential hypertension #Diabetes type 2 #Anxiety disorder -Taper steroid dose--currently at Solu-Medrol 60 mg twice a day -Ongoing physical therapy Okay to transfer to medical floor if we can wean off oxygen to at least 2 L prior to transfer her to the floor Leukocytosis -Likely due to steroid use as COVID tend to have leukopenia. - Borderline hyperkalemia -Potassium 5 today and normal creatinine and magnesium within normal range -Hold lisinopril Type 2 diabetes mellitus on Lantus as well as sliding scale along with metformin Disposition -Patient lives alone but daughter lives nearby 23 Hypoxia secondary to COVID pneumonia -Still requiring 5 L oxygen specifically during ambulation -Stable to move to obs unit from [facility] -On tapering dose of steroid Rehab facilities preferred to have a negative test for rehab placement. We will re-swab again as patient would benefit with pulmonary rehab. 24th Dyspnea on mild exertion such as standing -when she gets up her sats dropped significantly to 70s. She would not be able to go to the rehab or custodial facility with this condition. She would not be able to come to the floor either with this extent of hypoxia on exertion. Likely this is due to severe pulmonary deconditioning with the recent COVID pneumonia Continue close monitoring and physical therapy treatment ongoing as she can tolerate. 25th Continue mostly supportive measures Hopefully able to get placement.
[2019-11-03 13:07] LABS: #Basophils 0.1 thou/uL (0.0-0.2); #Eosinphils 0.1 thou/uL (0.0-0.7); #Lymphocytes 0.9 thou/uL (1.20-3.40); #Monocytes 0.5 thou/uL (0.11-0.59); #Neutrophils 10.8 thou/uL (1.40-6.50); %Basophils 0.7 % (0.0-1.0); %Eosinophils 0.8 % (0.0-10.0); %Lymphocytes 6.9 % (21.0-51.0); %Monocytes 4.2 % (0.0-10.0); %Neutrophils 87.3 % (42.0-75.0); Hemoglobin 16.3 g/dL (12.0-16.0); Mean Corpuscular Hemoglobin 30.9 pg (27.0-31.0); Mean Corpuscular Volume 96.4 fL (78.0-98.0); Mean Platelet Volume 7.1 fL (7.4-10.4); Platelet Count 238 thou/uL (130-400); RBC Distribution Width 12.6 % (11.5-14.5); Red Blood Cell (RBC) Count 5.28 mill/uL (4.20-5.40); White Blood Cell (WBC) Count 12.4 thou/uL (4.8-10.8)
[2019-11-03] MEDS: Insulin Glargine 6 UNITS in Pre-Filled Syringe 1 EACH SC SCH (20:28)
[2019-11-03] MEDS: Latanoprost 0.005% Ophth Soln 2.5 ml Bottle EA EYE SCH (20:30)
[2019-11-04 03:58] LABS: Anion Gap 12 mmol/L (10-20); BUN (Urea Nitrogen) 25 mg/dL (9.8-20.1); Calc. Creatinine Clearance 86 mL/min (70-130); Calcium 8.6 mg/dL (7.8-10.44); Carbon Dioxide 30 mmol/L (23-31); Chloride 101 mmol/L (98-107); Estimated GFR-MDRD 81; Glucose 195 mg/dL (83-110); Potassium 4.9 mmol/L (3.5-5.1); Sodium 138 mmol/L (136-145)
[2019-11-04] MEDS: HumaLOG 300 UNITS/3 ML VIAL SC PRN ×2 (06:27→14:01)
--- NOTE | 2019-11-04 08:41 | PRG ---
DATE OF SERVICE: 11/04/2019 SUBJECTIVE: The patient is doing well. She is in good spirits. OBJECTIVE: VITAL SIGNS: Temperature 97.4, pulse 107, blood pressure 115/92, and O2 saturation 93% on 4 L nasal cannula. HEENT: Unremarkable. NECK: No JVD. LUNGS: Few crackles. CARDIAC: S1 and S2, regular. ABDOMEN: Soft. EXTREMITIES: No edema. LABORATORY DATA: Sodium 138, potassium 4.9, BUN 25, creatinine 0.7, and glucose 195. ASSESSMENT: COVID-19 pneumonia with persistent hypoxemia, slowly improving. PLAN: Continue oral prednisone and continue attempts at weaning oxygen. I believe this will take some time to normalize. She remains on anticoagulation. Job ID: [id number]
[2019-11-04] MEDS: Insulin Glargine 6 UNITS in Pre-Filled Syringe 1 EACH SC SCH ×2 (09:33→21:08)
[2019-11-04] MEDS: Nystatin 500,000 UNITS/5 ML UDCUP SSW SCH ×4 (09:35→21:08)
[2019-11-04] MEDS: Famotidine 20 MG TAB PO SCH ×2 (09:35→21:08)
[2019-11-04] MEDS: Zinc Sulfate 220 MG CAP PO SCH (09:35)
[2019-11-04] MEDS: metFORMIN 500 MG TAB PO SCH ×2 (09:36→17:56)
[2019-11-04] MEDS: Multivitamin W/ Minerals 1 TAB PO SCH (09:36)
[2019-11-04] MEDS: predniSONE 20 MG TAB PO SCH ×2 (09:36→21:08)
[2019-11-04] MEDS: Amlodipine 10 MG TAB PO SCH (09:36)
[2019-11-04] MEDS: Ascorbic Acid 500 mg Chewable Tablet PO SCH (09:36)
[2019-11-04] MEDS: Apixaban 5 MG TAB PO SCH ×2 (09:37→21:08)
--- NOTE | 2019-11-04 13:43 | PDOC.HOSPP ---
- Subjective Encounter Date: 11/04/19 Encounter Time: 11:20 Subjective: She needs sitting in the chair. I listen to her lungs. A no wheezing rales or rhonchi. She has a good aeration. She is on prednisone 30 mg twice a day sats 93%. - Objective Vital Signs & Weight: Vital Signs (12 hours) Temp BP Pulse Ox 11/04/19 11:18 97.4 F L 11/04/19 09:36 119/62 11/04/19 08:00 95 11/04/19 07:34 97.4 F L 11/04/19 07:29 94 L 11/04/19 03:31 97.0 F L Weight Admit Weight 170 lb 3.2 oz Weight 170 lb 3.2 oz Most Recent Monitor Data Heart Rate from ECG 106 NIBP 115/61 NIBP BP-Mean 79 Respiration from ECG 23 SpO2 94 I&O: 11/03/19 11/04/19 11/05/19 06:59 06:59 06:59 Intake Total 800 985 Output Total 975 800 Balance -175 185 Result Diagrams: 11/03/19 12:48 11/04/19 03:00 Additional Labs: Accuchecks 11/04/19 11/03/19 11/03/19 05:44 20:33 16:48 POC Glucose 160 H 264 H 203 H Hospitalist ROS - Medication Medications: Active Medications Generic Name Dose Route Start Last Admin Trade Name Freq PRN Reason Stop Dose Admin Acetaminophen 650 mg 10/08/19 05:45 10/22/19 21:24 Tylenol PO 650 mg Q4H PRN Administration Headache/Fever/Mild Pain (1-3) Alprazolam 0.25 mg 10/29/19 09:49 10/29/19 11:29 Xanax PO 0.25 mg QIDPRN PRN Administration Anxiety Amlodipine Besylate 10 mg 10/15/19 09:00 11/04/19 09:36 Norvasc PO 10 mg DAILY KAYLIE Administration Apixaban 5 mg 10/31/19 21:00 11/04/19 09:37 Eliquis PO 5 mg BID KAYLIE Administration Ascorbic Acid 1,000 mg 10/14/19 09:00 11/04/19 09:36 Vitamin C PO 1,000 mg DAILY KAYLIE Administration Bisacodyl 10 mg 10/08/19 05:45 10/14/19 20:17 Dulcolax PO 10 mg DAILYPRN PRN Administration Constipation Dextrose/Water 25 gm 10/09/19 20:14 10/16/19 07:40 Dextrose 50% SLOW IVP 25 gm PRN PRN Administration Hypoglycemia Diphenhydramine HCl 25 mg 10/21/19 16:19 10/26/19 20:53 Benadryl PO 25 mg HSPRN PRN Administration Itching & Insomnia Famotidine 20 mg 10/08/19 09:00 11/04/19 09:35 Pepcid PO 20 mg BID KAYLIE Administration Insulin Glargine 6 units/ 0.06 mls @ 0 mls/hr 11/03/19 21:00 11/04/19 09:33 Miscellaneous Medication SC 0.06 mls BID KAYLIE Administration Insulin Human Lispro 0 units 10/19/19 16:47 11/04/19 06:27 Humalog SC 3 unit .AGGRESSIVE SLIDING PRN Administration Aggressive Correctional Scale Iron/Minerals/Multivitamins 1 tab 10/09/19 09:00 11/04/19 09:36 Theragran M PO 1 tab DAILY KAYLIE Administration Latanoprost 1 drop 10/08/19 21:00 11/03/19 20:30 Xalatan 0.005% Ophth Soln EA EYE 1 drop HS KYALIE Administration Metformin HCl 1,000 mg 10/19/19 08:00 11/04/19 09:36 Glucophage PO 1,000 mg BID-WM KAYLIE Administration Mometasone Furoate 200 mcg 10/12/19 18:30 11/03/19 18:54 Asmanex Hfa 100 Mcg INH 2 puff BID-RT KAYLIE Administration Nystatin 500,000 units 10/19/19 21:00 11/04/19 09:35 Mycostatin SSW 500,000 units QID KAYLIE Administration Ondansetron HCl 4 mg 10/08/19 05:44 10/15/19 17:15 Zofran IVP 4 mg Q6H PRN Administration Nausea/Vomiting, use 1st Prednisone 30 mg 11/02/19 21:00 11/04/19 09:36 Prednisone PO 30 mg BID KAYLIE Administration Simethicone 80 mg 10/21/19 12:42 10/21/19 16:15 Mylicon Drops 40 Mg/0.6ml Drop PO 80 mg QID PRN Administration Gas Pain Sodium Chloride 10 ml 10/08/19 09:00 11/04/19 09:37 Flush - Normal Saline IVF 10 ml Q12HR KAYLIE Administration Sodium Chloride 10 ml 10/08/19 06:34 10/09/19 05:27 Flush - Normal Saline IVF 10 ml PRN PRN Administration Saline Flush Venlafaxine HCl 75 mg 10/08/19 21:00 11/04/19 09:36 Effexor PO 75 mg BID KAYLIE Administration Zinc Sulfate 220 mg 10/09/19 09:00 11/04/19 09:35 Zinc Sulfate PO 220 mg DAILY KAYLIE Administration - Exam General Appearance: NAD, awake alert Eye: PERRL ENT: normocephalic atraumatic Neck: supple Heart: RRR Respiratory: CTAB, no wheezes, no rales, no ronchi, normal chest expansion, no tachypnea Gastrointestinal: soft, normal bowel sounds Neurological: cranial nerve grossly intact, no focal deficits Psychiatric: A&O x 3 Hosp A/P - Plan #Acute hypoxic respiratory failure secondary to COVID pneumonia #COVID pneumonia #Essential hypertension #Diabetes type 2 #Anxiety disorder -Taper steroid dose--currently at Solu-Medrol 60 mg twice a day -Ongoing physical therapy Okay to transfer to medical floor if we can wean off oxygen to at least 2 L prior to transfer her to the floor Leukocytosis -Likely due to steroid use as COVID tend to have leukopenia. - Borderline hyperkalemia -Potassium 5 today and normal creatinine and magnesium within normal range -Hold lisinopril Type 2 diabetes mellitus on Lantus as well as sliding scale along with metformin Disposition -Patient lives alone but daughter lives nearby 23 Hypoxia secondary to COVID pneumonia -Still requiring 5 L oxygen specifically during ambulation -Stable to move to obs unit from [facility] -On tapering dose of steroid Rehab facilities preferred to have a negative test for rehab placement. We will re-swab again as patient would benefit with pulmonary rehab. 24th Dyspnea on mild exertion such as standing -when she gets up her sats dropped significantly to 70s. She would not be able to go to the rehab or [facility] facility with this condition. She would not be able to come to the floor either with this extent of hypoxia on exertion. Likely this is due to severe pulmonary deconditioning with the recent COVID pneumonia Continue close monitoring and physical therapy treatment ongoing as she can tolerate. Continue mostly supportive measures Hopefully able to get placement. Prednisone 30 mg twice a day Eliquis 5 twice daily Her blood glucose today relatively okay around 160 -She is on metformin and Lantus 6 unit twice a day as well as sliding scale insulin Potassium and mag level looks good creatinine at 0.7. Lantus uptitrated given her blood glucose over 200 and this could be due to steroid-induced underlying type 2 diabetes mellitus.
[2019-11-04] MEDS: Mometasone 100 MCG/PUFF (1 INHALER) INH SCH (18:21)
[2019-11-04] MEDS: Latanoprost 0.005% Ophth Soln 2.5 ml Bottle EA EYE SCH (21:09)
[2019-11-05 04:12] LABS: Hemoglobin A1c 7.4 % (4.0-6.0)
[2019-11-05 04:28] LABS: Anion Gap 13 mmol/L (10-20); BUN (Urea Nitrogen) 23 mg/dL (9.8-20.1); Calc. Creatinine Clearance 95 mL/min (70-130); Calcium 8.9 mg/dL (7.8-10.44); Carbon Dioxide 30 mmol/L (23-31); Chloride 99 mmol/L (98-107); Estimated GFR-MDRD Greater than 90; Glucose 157 mg/dL (83-110); Potassium 4.8 mmol/L (3.5-5.1); Sodium 137 mmol/L (136-145)
[2019-11-05] MEDS: HumaLOG 300 UNITS/3 ML VIAL SC PRN (06:04)
--- NOTE | 2019-11-05 09:10 | PRG ---
DATE OF SERVICE: 11/05/2019 SUBJECTIVE: The patient is about the same. She desaturates profoundly when she gets up out of a chair. PHYSICAL EXAMINATION: VITAL SIGNS: Temperature 97.1, pulse 91, blood pressure 123/65, O2 saturation 98% on 3 L at rest, but she desaturates to with any movement. HEENT: Unremarkable. NECK: No JVD. CHEST: With inspiratory crackles. CARDIAC: S1 and S2. Regular. ABDOMEN: Soft. EXTREMITIES: No edema. LABORATORY DATA: Sodium 137, potassium 4.8, chloride 99, CO2 of 30, BUN 23, creatinine 0.6, and glucose 157. ASSESSMENT: COVID-19 pneumonia with hypoxemia. PLAN: Trying slow to wean oxygen, but not having much success with that. All we can give her is time. Job ID: [id number]
[2019-11-05] MEDS: Nystatin 500,000 UNITS/5 ML UDCUP SSW SCH ×4 (10:36→20:52)
[2019-11-05] MEDS: Famotidine 20 MG TAB PO SCH ×2 (10:36→20:53)
[2019-11-05] MEDS: predniSONE 20 MG TAB PO SCH ×2 (10:36→20:52)
[2019-11-05] MEDS: Zinc Sulfate 220 MG CAP PO SCH (10:36)
[2019-11-05] MEDS: metFORMIN 500 MG TAB PO SCH ×2 (10:36→17:28)
[2019-11-05] MEDS: Amlodipine 10 MG TAB PO SCH (10:37)
[2019-11-05] MEDS: Insulin Glargine 6 UNITS in Pre-Filled Syringe 1 EACH SC SCH ×2 (10:37→20:53)
[2019-11-05] MEDS: Apixaban 5 MG TAB PO SCH ×2 (10:37→20:52)
[2019-11-05] MEDS: Ascorbic Acid 500 mg Chewable Tablet PO SCH (10:37)
[2019-11-05] MEDS: Multivitamin W/ Minerals 1 TAB PO SCH (10:38)
--- NOTE | 2019-11-05 13:07 | PDOC.HOSPP ---
- Subjective Encounter Date: 11/05/19 Encounter Time: 11:30 Subjective: Fletcher seen this morning she states that she was little to this morning moving around as usual her sats dropped down. She cannot even go to lab standing because once she starts to move her sats are dropping down so physical therapy is not able to help her much with activity/ambulation. She is tachycardic in the monitor around 120. - Objective Vital Signs & Weight: Vital Signs (12 hours) Temp Pulse Pulse BP BP BP Pulse Ox 11/05/19 12:00 97.6 F 11/05/19 10:37 104/74 11/05/19 10:24 122 H 125 H 104/74 125/71 11/05/19 08:00 97.1 F L 97 11/05/19 03:30 97.8 F Pulse Ox Pulse Ox 11/05/19 12:00 11/05/19 10:37 11/05/19 10:24 89 L 94 L 11/05/19 08:00 11/05/19 03:30 Weight Admit Weight 170 lb 3.2 oz Weight 170 lb 3.2 oz Most Recent Monitor Data Heart Rate from ECG 117 NIBP 119/74 NIBP BP-Mean 89 Respiration from ECG 31 SpO2 96 I&O: 11/04/19 11/05/19 11/06/19 06:59 06:59 06:59 Intake Total 985 1210 Output Total 800 1075 Balance 185 135 Result Diagrams: 11/03/19 12:48 11/05/19 03:04 Additional Labs: Accuchecks 11/05/19 11/04/19 11/04/19 06:07 20:34 17:32 POC Glucose 161 H 180 H 133 H Hospitalist ROS - Medication Medications: Active Medications Generic Name Dose Route Start Last Admin Trade Name Freq PRN Reason Stop Dose Admin Acetaminophen 650 mg 10/08/19 05:45 10/22/19 21:24 Tylenol PO 650 mg Q4H PRN Administration Headache/Fever/Mild Pain (1-3) Alprazolam 0.25 mg 10/29/19 09:49 10/29/19 11:29 Xanax PO 0.25 mg QIDPRN PRN Administration Anxiety Amlodipine Besylate 10 mg 10/15/19 09:00 11/05/19 10:37 Norvasc PO 10 mg DAILY KAYLIE Administration Apixaban 5 mg 10/31/19 21:00 11/05/19 10:37 Eliquis PO 5 mg BID KAYLIE Administration Ascorbic Acid 1,000 mg 10/14/19 09:00 11/05/19 10:37 Vitamin C PO 1,000 mg DAILY KAYLIE Administration Bisacodyl 10 mg 10/08/19 05:45 10/14/19 20:17 Dulcolax PO 10 mg DAILYPRN PRN Administration Constipation Dextrose/Water 25 gm 10/09/19 20:14 10/16/19 07:40 Dextrose 50% SLOW IVP 25 gm PRN PRN Administration Hypoglycemia Diphenhydramine HCl 25 mg 10/21/19 16:19 10/26/19 20:53 Benadryl PO 25 mg HSPRN PRN Administration Itching & Insomnia Famotidine 20 mg 10/08/19 09:00 11/05/19 10:36 Pepcid PO 20 mg BID KAYLIE Administration Insulin Glargine 6 units/ 0.06 mls @ 0 mls/hr 11/03/19 21:00 11/05/19 10:37 Miscellaneous Medication SC 0.06 mls BID KAYLIE Administration Insulin Human Lispro 0 units 10/19/19 16:47 11/05/19 06:04 Humalog SC 3 unit .AGGRESSIVE SLIDING PRN Administration Aggressive Correctional Scale Iron/Minerals/Multivitamins 1 tab 10/09/19 09:00 11/05/19 10:38 Theragran M PO 1 tab DAILY KAYLIE Administration Latanoprost 1 drop 10/08/19 21:00 11/04/19 21:09 Xalatan 0.005% Oph Soln EA EYE 1 drop HS KAYLIE Administration Metformin HCl 1,000 mg 10/19/19 08:00 11/05/19 10:36 Glucophage PO 1,000 mg BID-WM KAYLIE Administration Mometasone Furoate 200 mcg 10/12/19 18:30 11/04/19 18:21 Asmanex Hfa 100 Mcg INH 2 puff BID-RT KAYLIE Administration Nystatin 500,000 units 10/19/19 21:00 11/05/19 10:36 Mycostatin SSW 500,000 units QID KAYLIE Administration Ondansetron HCl 4 mg 10/08/19 05:44 10/15/19 17:15 Zofran IVP 4 mg Q6H PRN Administration Nausea/Vomiting, use 1st Prednisone 30 mg 11/02/19 21:00 11/05/19 10:36 Prednisone PO 30 mg BID KAYLIE Administration Simethicone 80 mg 10/21/19 12:42 10/21/19 16:15 Mylicon Drops 40 Mg/0.6ml Drop PO 80 mg QID PRN Administration Gas Pain Sodium Chloride 10 ml 10/08/19 09:00 11/05/19 10:38 Flush - Normal Saline IVF 10 ml Q12HR KAYLIE Administration Sodium Chloride 10 ml 10/08/19 06:34 10/09/19 05:27 Flush - Normal Saline IVF 10 ml PRN PRN Administration Saline Flush Venlafaxine HCl 75 mg 10/08/19 21:00 11/05/19 10:37 Effexor PO 75 mg BID KAYLIE Administration Zinc Sulfate 220 mg 10/09/19 09:00 11/05/19 10:36 Zinc Sulfate PO 220 mg DAILY KAYLIE Administration - Exam General Appearance: NAD, awake alert Eye: PERRL ENT: normocephalic atraumatic Neck: supple Respiratory: normal chest expansion Gastrointestinal: soft Neurological: no focal deficits Hosp A/P - Plan #Acute hypoxic respiratory failure secondary to COVID pneumonia #COVID pneumonia #Essential hypertension #Diabetes type 2 #Anxiety disorder -Taper steroid dose--currently at Solu-Medrol 60 mg twice a day -Ongoing physical therapy Okay to transfer to medical floor if we can wean off oxygen to at least 2 L prior to transfer her to the floor Leukocytosis -Likely due to steroid use as COVID tend to have leukopenia. - Borderline hyperkalemia -Potassium 5 today and normal creatinine and magnesium within normal range -Hold lisinopril Type 2 diabetes mellitus on Lantus as well as sliding scale along with metformin Disposition -Patient lives alone but daughter lives nearby Hypoxia secondary to COVID pneumonia -Still requiring 5 L oxygen specifically during ambulation -Stable to move to obs unit from [facility] -On tapering dose of steroid Rehab facilities preferred to have a negative test for rehab placement. We will re-swab again as patient would benefit with pulmonary rehab. 24 Dyspnea on mild exertion such as standing -when she gets up her sats dropped significantly to 70s. She would not be able to go to the rehab or penitentiary facility with this condition. She would not be able to come to the floor either with this extent of hypoxia on exertion. Likely this is due to severe pulmonary deconditioning with the recent COVID pneumonia Continue close monitoring and physical therapy treatment ongoing as she can tolerate. Continue mostly supportive measures Hopefully able to get placement. Prednisone 30 mg twice a day Eliquis 5 twice daily Her blood glucose today relatively okay around 160 -She is on metformin and Lantus 6 unit twice a day as well as sliding scale insulin Potassium and mag level looks good creatinine at 0.7. Lantus uptitrated given her blood glucose over 200 and this could be due to steroid-induced underlying type 2 diabetes mellitus. Exertional hypoxia related to COVID pneumonia Continue monitoring and supportive medical management
[2019-11-05] MEDS: Mometasone 100 MCG/PUFF (1 INHALER) INH SCH ×2 (17:27→19:07)
[2019-11-05] MEDS: Latanoprost 0.005% Ophth Soln 2.5 ml Bottle EA EYE SCH (20:53)
[2019-11-06] MEDS: HumaLOG 300 UNITS/3 ML VIAL SC PRN ×3 (06:19→20:42)
[2019-11-06] MEDS: Mometasone 100 MCG/PUFF (1 INHALER) INH SCH ×2 (08:20→18:52)
[2019-11-06] MEDS: Zinc Sulfate 220 MG CAP PO SCH (09:06)
[2019-11-06] MEDS: Famotidine 20 MG TAB PO SCH ×2 (09:06→20:49)
[2019-11-06] MEDS: Ascorbic Acid 500 mg Chewable Tablet PO SCH (09:06)
[2019-11-06] MEDS: Nystatin 500,000 UNITS/5 ML UDCUP SSW SCH ×2 (09:07→10:33)
[2019-11-06] MEDS: metFORMIN 500 MG TAB PO SCH ×2 (09:07→17:57)
[2019-11-06] MEDS: predniSONE 20 MG TAB PO SCH ×2 (09:08→20:49)
[2019-11-06] MEDS: Multivitamin W/ Minerals 1 TAB PO SCH (09:08)
[2019-11-06] MEDS: Insulin Glargine 6 UNITS in Pre-Filled Syringe 1 EACH SC SCH ×2 (09:08→20:42)
[2019-11-06] MEDS: Amlodipine 10 MG TAB PO SCH (09:08)
[2019-11-06] MEDS: Apixaban 5 MG TAB PO SCH ×2 (09:09→20:49)
--- NOTE | 2019-11-06 10:10 | PRG ---
DATE OF SERVICE: 11/06/2019 SUBJECTIVE: The patient is about the same. Still gets hypoxic with any type of movement. OBJECTIVE: VITAL SIGNS: On exam, temperature 97.7, pulse 105, blood pressure 121/100, and O2 saturation 93%. HEENT: Unremarkable. NECK: No JVD. LUNGS: Clear anteriorly. CARDIAC: S1 and S2. Regular. ABDOMEN: Soft. EXTREMITIES: No edema. ASSESSMENT: COVID-19 pneumonia with improved hypoxemia. PLAN: She is continuing steroids, anticoagulation. Wean oxygen as tolerated. Job ID: [id number]
--- NOTE | 2019-11-06 13:59 | PDOC.HOSPP ---
- Subjective Encounter Date: 11/06/19 Encounter Time: 11:20 Subjective: She is able to walk today with a 1 pause about 200 feet with the physical therapy assistance she feels good about it. - Objective Vital Signs & Weight: Vital Signs (12 hours) Temp Pulse Pulse BP BP BP Pulse Ox 11/06/19 11:10 98.0 F 11/06/19 10:24 138 H 114 H 123/60 117/65 11/06/19 09:08 104/74 11/06/19 08:21 95 11/06/19 07:34 97.7 F 11/06/19 07:30 97 11/06/19 04:00 97.4 F L Weight Admit Weight 170 lb 3.2 oz Weight 170 lb 3.2 oz Most Recent Monitor Data Heart Rate from ECG 118 NIBP 111/67 NIBP BP-Mean 81 Respiration from ECG 28 SpO2 94 I&O: 11/05/19 11/06/19 11/07/19 06:59 06:59 06:59 Intake Total 1210 1190 Output Total 1075 500 Balance 135 690 Result Diagrams: 11/03/19 12:48 11/05/19 03:04 Additional Labs: Accuchecks 11/06/19 11/06/19 11/05/19 10:55 05:57 20:59 POC Glucose 227 H 197 H 171 H 11/05/19 11/05/19 11/04/19 17:04 10:55 10:32 POC Glucose 183 H 252 H 228 H Hospitalist ROS - Medication Medications: Active Medications Generic Name Dose Route Start Last Admin Trade Name Freq PRN Reason Stop Dose Admin Acetaminophen 650 mg 10/08/19 05:45 10/22/19 21:24 Tylenol PO 650 mg Q4H PRN Administration Headache/Fever/Mild Pain (1-3) Alprazolam 0.25 mg 10/29/19 09:49 10/29/19 11:29 Xanax PO 0.25 mg QIDPRN PRN Administration Anxiety Amlodipine Besylate 10 mg 10/15/19 09:00 11/06/19 09:08 Norvasc PO 10 mg DAILY KAYLIE Administration Apixaban 5 mg 10/31/19 21:00 11/06/19 09:09 Eliquis PO 5 mg BID KAYLIE Administration Ascorbic Acid 1,000 mg 10/14/19 09:00 11/06/19 09:06 Vitamin C PO 1,000 mg DAILY KAYILE Administration Bisacodyl 10 mg 10/08/19 05:45 10/14/19 20:17 Dulcolax PO 10 mg DAILYPRN PRN Administration Constipation Diphenhydramine HCl 25 mg 10/21/19 16:19 10/26/19 20:53 Benadryl PO 25 mg HSPRN PRN Administration Itching & Insomnia Famotidine 20 mg 10/08/19 09:00 11/06/19 09:06 Pepcid PO 20 mg BID KAYLIE Administration Insulin Glargine 6 units/ 0.06 mls @ 0 mls/hr 11/03/19 21:00 11/06/19 09:08 Miscellaneous Medication SC 0.06 mls BID KAYLIE Administration Insulin Human Lispro 0 units 10/19/19 16:47 11/06/19 13:23 Humalog SC 6 unit .AGGRESSIVE SLIDING PRN Administration Aggressive Correctional Scale Iron/Minerals/Multivitamins 1 tab 10/09/19 09:00 11/06/19 09:08 Theragran M PO 1 tab DAILY KAYLIE Administration Latanoprost 1 drop 10/08/19 21:00 11/05/19 20:53 Xalatan 0.005% Ophth Soln EA EYE 1 drop HS KAYLIE Administration Metformin HCl 1,000 mg 10/19/19 08:00 11/06/19 09:07 Glucophage PO 1,000 mg BID-WM KAYLIE Administration Mometasone Furoate 200 mcg 10/12/19 18:30 11/06/19 08:20 Asmanex Hfa 100 Mcg INH 2 puff BID-RT KAYLIE Administration Prednisone 30 mg 11/02/19 21:00 11/06/19 09:08 Prednisone PO 30 mg BID KAYLIE Administration Simethicone 80 mg 10/21/19 12:42 10/21/19 16:15 Mylicon Drops 40 Mg/0.6ml Drop PO 80 mg QID PRN Administration Gas Pain Venlafaxine HCl 75 mg 10/08/19 21:00 11/06/19 09:06 Effexor PO 75 mg BID KAYLIE Administration Zinc Sulfate 220 mg 10/09/19 09:00 11/06/19 09:06 Zinc Sulfate PO 220 mg DAILY KAYLIE Administration - Exam General Appearance: NAD, awake alert Eye: PERRL ENT: normocephalic atraumatic Neck: supple Heart: RRR Respiratory: CTAB, normal chest expansion Gastrointestinal: soft, normal bowel sounds Neurological: no focal deficits Psychiatric: A&O x 3 Hosp A/P - Plan #Acute hypoxic respiratory failure secondary to COVID pneumonia #COVID pneumonia #Essential hypertension #Diabetes type 2 #Anxiety disorder -Taper steroid dose--currently at Solu-Medrol 60 mg twice a day -Ongoing physical therapy Okay to transfer to medical floor if we can wean off oxygen to at least 2 L prior to transfer her to the floor Leukocytosis -Likely due to steroid use as COVID tend to have leukopenia. - Borderline hyperkalemia -Potassium 5 today and normal creatinine and magnesium within normal range -Hold lisinopril Type 2 diabetes mellitus on Lantus as well as sliding scale along with metformin Disposition -Patient lives alone but daughter lives nearby Hypoxia secondary to COVID pneumonia -Still requiring 5 L oxygen specifically during ambulation -Stable to move to obs unit from [facility] -On tapering dose of steroid Rehab facilities preferred to have a negative test for rehab placement. We will re-swab again as patient would benefit with pulmonary rehab. 24th Dyspnea on mild exertion such as standing -when she gets up her sats dropped significantly to 70s. She would not be able to go to the rehab or care home facility with this condition. She would not be able to come to the floor either with this extent of hypoxia on exertion. Likely this is due to severe pulmonary deconditioning with the recent COVID pneumonia Continue close monitoring and physical therapy treatment ongoing as she can tolerate. 25th Continue mostly supportive measures Hopefully able to get placement. 26th Prednisone 30 mg twice a day Eliquis 5 twice daily Her blood glucose today relatively okay around 160 -She is on metformin and Lantus 6 unit twice a day as well as sliding scale insulin Potassium and mag level looks good creatinine at 0.7. Lantus uptitrated given her blood glucose over 200 and this could be due to steroid-induced underlying type 2 diabetes mellitus. 27th Exertional hypoxia related to COVID pneumonia Continue monitoring and supportive medical management 28th She is able to walk today with a 1 pause about 200 feet with the physical therapy assistance. Slowly improving in her oxygen status while ambulating on 4 L oxygen.
[2019-11-06] MEDS: Latanoprost 0.005% Ophth Soln 2.5 ml Bottle EA EYE SCH (20:49)
[2019-11-07] MEDS: HumaLOG 300 UNITS/3 ML VIAL SC PRN ×2 (06:20→20:12)
[2019-11-07] MEDS: Mometasone 100 MCG/PUFF (1 INHALER) INH SCH ×2 (07:03→18:56)
[2019-11-07] MEDS: Multivitamin W/ Minerals 1 TAB PO SCH (08:42)
[2019-11-07] MEDS: predniSONE 20 MG TAB PO SCH ×2 (08:42→20:05)
[2019-11-07] MEDS: Ascorbic Acid 500 mg Chewable Tablet PO SCH (08:43)
[2019-11-07] MEDS: Apixaban 5 MG TAB PO SCH ×2 (08:43→20:06)
[2019-11-07] MEDS: Famotidine 20 MG TAB PO SCH ×2 (08:43→20:06)
[2019-11-07] MEDS: Zinc Sulfate 220 MG CAP PO SCH (08:43)
[2019-11-07] MEDS: Amlodipine 10 MG TAB PO SCH (08:43)
[2019-11-07] MEDS: metFORMIN 500 MG TAB PO SCH ×2 (08:43→17:35)
--- NOTE | 2019-11-07 11:33 | PRG ---
DATE OF SERVICE: 11/07/2019 SUBJECTIVE: This morning, she is sitting in the side of the bed. OBJECTIVE: VITAL SIGNS: Sats on 3 L are 95%, pulse 120, blood pressure 114/74, respiratory rate 18. CHEST: No wheezing. No crackles. CARDIAC: Normal S1, S2. No gallops. ABDOMEN: No masses. IMPRESSION: 1. Mccurdy positive pneumonia, day 29 in the hospital. 2. Hypoxemia, slowly improving. Last chest x-ray almost two weeks ago. She is eating well. Mccurdy positive pneumonia, respiratory failure, slowly resolving. Continue steroids. Continue PT. She is on Eliquis. Job ID: [id number]
--- NOTE | 2019-11-07 12:23 | PDOC.HOSPP ---
- Subjective Encounter Date: 11/07/19 Encounter Time: 12:22 Subjective: Ms. Rojas was seen in follow-up of COVID pneumonia with respiratory failure. She continues to get extremely short of breath when she does the least amount of physical exertion. She says she does not feel ready to go to Rehab yet. - Objective Vital Signs & Weight: Vital Signs (12 hours) Temp BP 11/07/19 11:30 98.0 F 11/07/19 08:43 104/74 11/07/19 07:28 97.4 F L 11/07/19 04:15 96.7 F L 11/07/19 00:24 97.7 F Weight Admit Weight 170 lb 3.2 oz Weight 170 lb 3.2 oz Most Recent Monitor Data Heart Rate from ECG 124 NIBP 114/74 NIBP BP-Mean 87 Respiration from ECG 26 SpO2 92 I&O: 11/06/19 11/07/19 11/08/19 06:59 06:59 06:59 Intake Total 1190 1170 Output Total 500 1150 Balance 690 20 Result Diagrams: 11/03/19 12:48 11/05/19 03:04 Additional Labs: Accuchecks 11/07/19 11/07/19 11/06/19 10:49 05:32 19:43 POC Glucose 190 H 158 H 219 H 11/06/19 16:37 POC Glucose 152 H Hospitalist ROS - Medication Medications: Active Medications Generic Name Dose Route Start Last Admin Trade Name Freq PRN Reason Stop Dose Admin Acetaminophen 650 mg 10/08/19 05:45 10/22/19 21:24 Tylenol PO 650 mg Q4H PRN Administration Headache/Fever/Mild Pain (1-3) Alprazolam 0.25 mg 10/29/19 09:49 10/29/19 11:29 Xanax PO 0.25 mg QIDPRN PRN Administration Anxiety Amlodipine Besylate 10 mg 10/15/19 09:00 11/07/19 08:43 Norvasc PO 10 mg DAILY KAYLIE Administration Apixaban 5 mg 10/31/19 21:00 11/07/19 08:43 Eliquis PO 5 mg BID KAYLIE Administration Ascorbic Acid 1,000 mg 10/14/19 09:00 11/07/19 08:43 Vitamin C PO 1,000 mg DAILY KAYLIE Administration Bisacodyl 10 mg 10/08/19 05:45 10/14/19 20:17 Dulcolax PO 10 mg DAILYPRN PRN Administration Constipation Diphenhydramine HCl 25 mg 10/21/19 16:19 10/26/19 20:53 Benadryl PO 25 mg HSPRN PRN Administration Itching & Insomnia Famotidine 20 mg 10/08/19 09:00 11/07/19 08:43 Pepcid PO 20 mg BID KAYLIE Administration Insulin Glargine 6 units/ 0.06 mls @ 0 mls/hr 11/03/19 21:00 11/06/19 20:42 Miscellaneous Medication SC 0.06 mls BID KAYLIE Administration Insulin Human Lispro 0 units 10/19/19 16:47 11/07/19 06:20 Humalog SC 3 unit .AGGRESSIVE SLIDING PRN Administration Aggressive Correctional Scale Iron/Minerals/Multivitamins 1 tab 10/09/19 09:00 11/07/19 08:42 Theragran M PO 1 tab DAILY KAYLIE Administration Latanoprost 1 drop 10/08/19 21:00 11/06/19 20:49 Xalatan 0.005% Ophth Soln EA EYE 1 drop HS KAYLIE Administration Metformin HCl 1,000 mg 10/19/19 08:00 11/07/19 08:43 Glucophage PO 1,000 mg BID-WM KAYLIE Administration Mometasone Furoate 200 mcg 10/12/19 18:30 11/07/19 07:03 Asmanex Hfa 100 Mcg INH 1 puff BID-RT KAYLIE Administration Prednisone 30 mg 11/02/19 21:00 11/07/19 08:42 Prednisone PO 30 mg BID KAYLIE Administration Simethicone 80 mg 10/21/19 12:42 10/21/19 16:15 Mylicon Drops 40 Mg/0.6ml Drop PO 80 mg QID PRN Administration Gas Pain Venlafaxine HCl 75 mg 10/08/19 21:00 11/07/19 08:43 Effexor PO 75 mg BID KAYLIE Administration Zinc Sulfate 220 mg 10/09/19 09:00 11/07/19 08:43 Zinc Sulfate PO 220 mg DAILY KAYLIE Administration - Exam Eye: PERRL, anicteric sclera Heart: RRR, no murmur, no gallops, no rubs, normal peripheral pulses Respiratory: no wheezes, no ronchi, rales (+ fine rales at the bases) Gastrointestinal: soft, non-tender, non-distended, normal bowel sounds, no palpable masses, no hepatomegaly Extremities: no cyanosis, no edema Hosp A/P (1) Acute respiratory failure with hypoxemia Code(s): J96.01 - ACUTE RESPIRATORY FAILURE WITH HYPOXIA Status: Acute (2) COVID-19 Code(s): U07.1 - COVID-19 Status: Acute (3) Diabetes mellitus type 2 in nonobese Code(s): E11.9 - TYPE 2 DIABETES MELLITUS WITHOUT COMPLICATIONS Status: Chronic (4) Hypertension Code(s): I10 - ESSENTIAL (PRIMARY) HYPERTENSION Status: Chronic (5) Anxiety Code(s): F41.9 - ANXIETY DISORDER, UNSPECIFIED Status: Chronic - Plan * Acute respiratory failure due to COVID pneumonia- she continues to slowly recover * Continue supplemental oxygen and PT/OT * HTN- blood pressure is stable * DM- blood glucose is stable * Rehb when ok with PCCM
[2019-11-07] MEDS: Insulin Glargine 6 UNITS in Pre-Filled Syringe 1 EACH SC SCH ×2 (13:00→20:06)
[2019-11-07] MEDS: Latanoprost 0.005% Ophth Soln 2.5 ml Bottle EA EYE SCH (20:06)
[2019-11-08] MEDS: Mometasone 100 MCG/PUFF (1 INHALER) INH SCH ×2 (06:41→19:06)
[2019-11-08] MEDS: Ascorbic Acid 500 mg Chewable Tablet PO SCH (08:33)
[2019-11-08] MEDS: Famotidine 20 MG TAB PO SCH ×2 (08:33→21:03)
[2019-11-08] MEDS: predniSONE 20 MG TAB PO SCH ×2 (08:33→21:03)
[2019-11-08] MEDS: Multivitamin W/ Minerals 1 TAB PO SCH (08:34)
[2019-11-08] MEDS: Insulin Glargine 6 UNITS in Pre-Filled Syringe 1 EACH SC SCH ×2 (08:34→21:04)
[2019-11-08] MEDS: Amlodipine 10 MG TAB PO SCH (08:34)
[2019-11-08] MEDS: Apixaban 5 MG TAB PO SCH ×2 (08:34→21:03)
[2019-11-08] MEDS: Zinc Sulfate 220 MG CAP PO SCH (08:34)
[2019-11-08] MEDS: metFORMIN 500 MG TAB PO SCH ×2 (08:34→17:32)
--- NOTE | 2019-11-08 11:05 | PRG ---
DATE OF SERVICE: 11/08/2019 SUBJECTIVE: This morning, she is awake, alert, and responsive, sitting on the side of the bed without any issues. OBJECTIVE: VITAL SIGNS: On 3 L, her sats are 98%, pulse 118, blood pressure respiratory rate 18. LUNGS: No wheezing, no crackles. CARDIAC: Normal S1 and S2. No gallops. ABDOMEN: No masses. ASSESSMENT: 1. Mccurdy positive pneumonia. 2. Respiratory failure, much improved. PLAN: Continue PT, supportive care, steroids. Hopefully home next week. Job ID: [id number]
--- NOTE | 2019-11-08 11:17 | PDOC.HOSPP ---
- Subjective Encounter Date: 11/08/19 Encounter Time: 11:15 Subjective: Ms. Rojas was seen today in follow-up of respiratory failure due to COVID pneumonia. She continues to have significant dyspnea. - Objective Vital Signs & Weight: Vital Signs (12 hours) Temp Pulse Ox 11/08/19 11:13 97.6 F 11/08/19 07:12 97.4 F L 11/08/19 06:41 100 11/08/19 04:00 96.6 F L 11/08/19 00:00 97.4 F L Weight Admit Weight 170 lb 3.2 oz Weight 170 lb 3.2 oz Most Recent Monitor Data Heart Rate from ECG 113 NIBP 129/72 NIBP BP-Mean 91 Respiration from ECG 22 SpO2 91 I&O: 11/07/19 11/08/19 11/09/19 06:59 06:59 06:59 Intake Total 1170 720 Output Total 1150 1300 Balance 20 -580 Result Diagrams: 11/03/19 12:48 11/05/19 03:04 Additional Labs: Accuchecks 11/08/19 11/07/19 11/07/19 10:43 20:10 16:54 POC Glucose 163 H 254 H 165 H Hospitalist ROS - Medication Medications: Active Medications Generic Name Dose Route Start Last Admin Trade Name Freq PRN Reason Stop Dose Admin Acetaminophen 650 mg 10/08/19 05:45 10/22/19 21:24 Tylenol PO 650 mg Q4H PRN Administration Headache/Fever/Mild Pain (1-3) Amlodipine Besylate 10 mg 10/15/19 09:00 11/08/19 08:34 Norvasc PO 10 mg DAILY KAYLIE Administration Apixaban 5 mg 10/31/19 21:00 11/08/19 08:34 Eliquis PO 5 mg BID KAYLIE Administration Ascorbic Acid 1,000 mg 10/14/19 09:00 11/08/19 08:33 Vitamin C PO 1,000 mg DAILY KAYLIE Administration Bisacodyl 10 mg 10/08/19 05:45 10/14/19 20:17 Dulcolax PO 10 mg DAILYPRN PRN Administration Constipation Diphenhydramine HCl 25 mg 10/21/19 16:19 10/26/19 20:53 Benadryl PO 25 mg HSPRN PRN Administration Itching & Insomnia Famotidine 20 mg 10/08/19 09:00 11/08/19 08:33 Pepcid PO 20 mg BID KAYLIE Administration Insulin Glargine 6 units/ 0.06 mls @ 0 mls/hr 11/03/19 21:00 11/08/19 08:34 Miscellaneous Medication SC 0.06 mls BID KAYLIE Administration Insulin Human Lispro 0 units 10/19/19 16:47 11/07/19 20:12 Humalog SC 6 unit .AGGRESSIVE SLIDING PRN Administration Aggressive Correctional Scale Iron/Minerals/Multivitamins 1 tab 10/09/19 09:00 11/08/19 08:34 Theragran M PO 1 tab DAILY KAYLIE Administration Latanoprost 1 drop 10/08/19 21:00 11/07/19 20:06 Xalatan 0.005% Ophth Soln EA EYE 1 drop HS KAYLIE Administration Metformin HCl 1,000 mg 10/19/19 08:00 11/08/19 08:34 Glucophage PO 1,000 mg BID-WM KAYLIE Administration Mometasone Furoate 200 mcg 10/12/19 18:30 11/08/19 06:41 Asmanex Hfa 100 Mcg INH 1 puff BID-RT KAYLIE Administration Prednisone 30 mg 11/02/19 21:00 11/08/19 08:33 Prednisone PO 30 mg BID KAYLIE Administration Simethicone 80 mg 10/21/19 12:42 10/21/19 16:15 Mylicon Drops 40 Mg/0.6ml Drop PO 80 mg QID PRN Administration Gas Pain Venlafaxine HCl 75 mg 10/08/19 21:00 11/08/19 08:33 Effexor PO 75 mg BID KAYLIE Administration Zinc Sulfate 220 mg 10/09/19 09:00 11/08/19 08:34 Zinc Sulfate PO 220 mg DAILY KAYLIE Administration - Exam Eye: PERRL, anicteric sclera Heart: RRR, no murmur, no gallops, no rubs, normal peripheral pulses Respiratory: no wheezes, no ronchi, rales (fine rales at both bases) Gastrointestinal: soft, non-tender, non-distended, normal bowel sounds, no palpable masses Extremities: no cyanosis, no edema Hosp A/P (1) Acute respiratory failure with hypoxemia Code(s): J96.01 - ACUTE RESPIRATORY FAILURE WITH HYPOXIA Status: Acute (2) COVID-19 Code(s): U07.1 - COVID-19 Status: Acute (3) Diabetes mellitus type 2 in nonobese Code(s): E11.9 - TYPE 2 DIABETES MELLITUS WITHOUT COMPLICATIONS Status: Chronic (4) Hypertension Code(s): I10 - ESSENTIAL (PRIMARY) HYPERTENSION Status: Chronic (5) Anxiety Code(s): F41.9 - ANXIETY DISORDER, UNSPECIFIED Status: Chronic - Plan * Acute respiratory failure due to COVID pneumonia- she continues to slowly recover * Continue supplemental oxygen and PT/OT * Will add Incentive Spirometry * HTN- blood pressure is stable * DM- blood glucose is stable * Rehb when ok with PCCM
[2019-11-08] MEDS: HumaLOG 300 UNITS/3 ML VIAL SC PRN (11:21)
[2019-11-08] MEDS ORDERED: ALPRAZolam 0.25 MG TAB PO PRN (13:00)
[2019-11-08] MEDS: Latanoprost 0.005% Ophth Soln 2.5 ml Bottle EA EYE SCH (21:04)
[2019-11-09] MEDS: HumaLOG 300 UNITS/3 ML VIAL SC PRN ×3 (06:40→21:10)
[2019-11-09 08:40] LABS: #Monocytes 0.6 thou/uL (0.11-0.59); #Neutrophils 10.3 thou/uL (1.40-6.50); %Basophils 0.4 % (0.0-1.0); %Eosinophils 0.4 % (0.0-10.0); %Lymphocytes 8.5 % (21.0-51.0); %Monocytes 4.8 % (0.0-10.0); Hemoglobin 17.1 g/dL (12.0-16.0); Mean Corpuscular Hemoglobin 31.4 pg (27.0-31.0); Mean Platelet Volume 6.6 fL (7.4-10.4); Platelet Count 284 thou/uL (130-400); RBC Distribution Width 12.6 % (11.5-14.5); Red Blood Cell (RBC) Count 5.44 mill/uL (4.20-5.40)
[2019-11-09] MEDS: metFORMIN 500 MG TAB PO SCH ×2 (08:57→17:31)
[2019-11-09] MEDS: Ascorbic Acid 500 mg Chewable Tablet PO SCH (08:58)
[2019-11-09] MEDS: Apixaban 5 MG TAB PO SCH ×2 (08:59→21:09)
[2019-11-09] MEDS: predniSONE 20 MG TAB PO SCH ×2 (08:59→21:09)
[2019-11-09] MEDS: Multivitamin W/ Minerals 1 TAB PO SCH (08:59)
[2019-11-09 09:00] LABS: Anion Gap 15 mmol/L (10-20); BUN (Urea Nitrogen) 25 mg/dL (9.8-20.1); Calc. Creatinine Clearance 88 mL/min (70-130); Calcium 8.7 mg/dL (7.8-10.44); Carbon Dioxide 28 mmol/L (23-31); Chloride 100 mmol/L (98-107); Estimated GFR-MDRD 83; Glucose 132 mg/dL (83-110); Sodium 139 mmol/L (136-145)
[2019-11-09] MEDS: Mometasone 100 MCG/PUFF (1 INHALER) INH SCH ×2 (09:01→19:02)
[2019-11-09] MEDS: Zinc Sulfate 220 MG CAP PO SCH (09:02)
[2019-11-09] MEDS: Insulin Glargine 6 UNITS in Pre-Filled Syringe 1 EACH SC SCH ×2 (09:02→21:09)
[2019-11-09] MEDS: Famotidine 20 MG TAB PO SCH ×2 (09:02→21:09)
[2019-11-09] MEDS: Amlodipine 10 MG TAB PO SCH (09:02)
--- NOTE | 2019-11-09 09:05 | PRG ---
DATE OF SERVICE: 11/09/2019 SUBJECTIVE: Ms. Rojas is doing very well. She does not desaturate near as much when she gets up to move around. OBJECTIVE: VITAL SIGNS: On exam, temperature is 96.7, pulse 119, blood pressure 131/74, and O2 saturation 98% on 3 L at rest. She desaturates to about 92% when she talks. HEENT: Unremarkable. NECK: No JVD. LUNGS: She has scant crackles bilaterally. CARDIAC: S1 and S2. Regular. ABDOMEN: Soft. EXTREMITIES: No edema. LABORATORY DATA: No new labs were done today. ASSESSMENT: COVID-19 pneumonia with slowly improving hypoxemia. PLAN: 1. Continue anticoagulation. 2. Slowly reduce steroid dose, going down from 30 mg prednisone twice a day to 20 mg twice a day. 3. She cannot transfer to the medical floor. Job ID: [id number]
--- NOTE | 2019-11-09 09:16 | PDOC.HOSPP ---
- Subjective Encounter Date: 11/09/19 Encounter Time: 09:15 Subjective: Ms. Rojas was seen today in follow-up of COVID pneumonia and respiratory failure. I watched as dhe got out of bed and to the bedside commode. Her oxygen saturations fell into the low 60's and took several minutes to recover. She was unable to speak during this time. - Objective Vital Signs & Weight: Vital Signs (12 hours) Temp BP Pulse Ox 11/09/19 09:02 104/74 11/09/19 07:56 96.7 F L 11/09/19 07:45 96 11/09/19 03:44 97.4 F L 11/08/19 23:57 97.9 F Weight Admit Weight 170 lb 3.2 oz Weight 170 lb 3.2 oz Most Recent Monitor Data Heart Rate from ECG 119 NIBP 131/74 NIBP BP-Mean 93 Respiration from ECG 21 SpO2 98 I&O: 11/08/19 11/09/19 11/10/19 06:59 06:59 06:59 Intake Total 720 960 Output Total 1300 1550 Balance -580 -590 Result Diagrams: 11/09/19 08:20 11/09/19 08:20 Additional Labs: Accuchecks 11/09/19 11/08/19 11/08/19 05:42 20:28 16:17 POC Glucose 166 H 140 H 145 H 11/08/19 10:43 POC Glucose 163 H Hospitalist ROS - Medication Medications: Active Medications Generic Name Dose Route Start Last Admin Trade Name Freq PRN Reason Stop Dose Admin Acetaminophen 650 mg 10/08/19 05:45 10/22/19 21:24 Tylenol PO 650 mg Q4H PRN Administration Headache/Fever/Mild Pain (1-3) Amlodipine Besylate 10 mg 10/15/19 09:00 11/09/19 09:02 Norvasc PO 10 mg DAILY KAYLIE Administration Apixaban 5 mg 10/31/19 21:00 11/09/19 08:59 Eliquis PO 5 mg BID KAYLIE Administration Ascorbic Acid 1,000 mg 10/14/19 09:00 11/09/19 08:58 Vitamin C PO 1,000 mg DAILY KAYLIE Administration Bisacodyl 10 mg 10/08/19 05:45 10/14/19 20:17 Dulcolax PO 10 mg DAILYPRN PRN Administration Constipation Diphenhydramine HCl 25 mg 10/21/19 16:19 10/26/19 20:53 Benadryl PO 25 mg HSPRN PRN Administration Itching & Insomnia Famotidine 20 mg 10/08/19 09:00 11/09/19 09:02 Pepcid PO 20 mg BID KAYLIE Administration Insulin Glargine 6 units/ 0.06 mls @ 0 mls/hr 11/03/19 21:00 11/09/19 09:02 Miscellaneous Medication SC 0.06 mls BID KAYLIE Administration Insulin Human Lispro 0 units 10/19/19 16:47 11/09/19 06:40 Humalog SC 3 unit .AGGRESSIVE SLIDING PRN Administration Aggressive Correctional Scale Iron/Minerals/Multivitamins 1 tab 10/09/19 09:00 11/09/19 08:59 Theragran M PO 1 tab DAILY KAYLIE Administration Latanoprost 1 drop 10/08/19 21:00 11/08/19 21:04 Xalatan 0.005% Ophth Soln EA EYE 1 drop HS KAYLIE Administration Metformin HCl 1,000 mg 10/19/19 08:00 11/09/19 08:57 Glucophage PO 1,000 mg BID-WM KAYLIE Administration Mometasone Furoate 200 mcg 10/12/19 18:30 11/09/19 09:01 Asmanex Hfa 100 Mcg INH 1 puff BID-RT KAYLIE Administration Prednisone 20 mg 11/09/19 09:00 11/09/19 08:59 Prednisone PO 20 mg BID KAYLIE Administration Simethicone 80 mg 10/21/19 12:42 10/21/19 16:15 Mylicon Drops 40 Mg/0.6ml Drop PO 80 mg QID PRN Administration Gas Pain Venlafaxine HCl 75 mg 10/08/19 21:00 11/09/19 08:58 Effexor PO 75 mg BID KAYLIE Administration Zinc Sulfate 220 mg 10/09/19 09:00 11/09/19 09:02 Zinc Sulfate PO 220 mg DAILY KAYLIE Administration - Exam Eye: PERRL, anicteric sclera Heart: RRR, no murmur, no gallops, no rubs, normal peripheral pulses Respiratory: rales (+ rales throughout) Gastrointestinal: soft, non-tender, non-distended, normal bowel sounds, no palpable masses Extremities: no cyanosis, 1+ LE edema (edema in both ankles) Hosp A/P (1) Acute respiratory failure with hypoxemia Code(s): J96.01 - ACUTE RESPIRATORY FAILURE WITH HYPOXIA Status: Acute (2) COVID-19 Code(s): U07.1 - COVID-19 Status: Acute (3) Diabetes mellitus type 2 in nonobese Code(s): E11.9 - TYPE 2 DIABETES MELLITUS WITHOUT COMPLICATIONS Status: Chronic (4) Hypertension Code(s): I10 - ESSENTIAL (PRIMARY) HYPERTENSION Status: Chronic (5) Anxiety Code(s): F41.9 - ANXIETY DISORDER, UNSPECIFIED Status: Chronic - Plan * Acute respiratory failure due to COVID pneumonia- she continues to desaturate with the slightest activity * Will continue to monitor in the IMCU * Continue supplemental oxygen and PT/OT * Continue Incentive Spirometry * HTN- blood pressure is stable * DM- blood glucose is stable * Rehab when clinically stable
[2019-11-09] MEDS: Latanoprost 0.005% Ophth Soln 2.5 ml Bottle EA EYE SCH (21:13)
[2019-11-10] MEDS: Mometasone 100 MCG/PUFF (1 INHALER) INH SCH ×2 (08:08→19:28)
[2019-11-10] MEDS: Famotidine 20 MG TAB PO SCH ×2 (08:43→21:34)
[2019-11-10] MEDS: Ascorbic Acid 500 mg Chewable Tablet PO SCH (08:43)
[2019-11-10] MEDS: Multivitamin W/ Minerals 1 TAB PO SCH (08:43)
[2019-11-10] MEDS: predniSONE 20 MG TAB PO SCH ×2 (08:43→21:35)
[2019-11-10] MEDS: Zinc Sulfate 220 MG CAP PO SCH (08:43)
[2019-11-10] MEDS: Insulin Glargine 6 UNITS in Pre-Filled Syringe 1 EACH SC SCH ×2 (08:43→21:38)
[2019-11-10] MEDS: Apixaban 5 MG TAB PO SCH ×2 (08:44→21:35)
[2019-11-10] MEDS: Amlodipine 10 MG TAB PO SCH (08:44)
[2019-11-10] MEDS: metFORMIN 500 MG TAB PO SCH ×2 (08:44→17:01)
--- NOTE | 2019-11-10 09:25 | PRG ---
DATE OF SERVICE: 11/10/2019 SUBJECTIVE: Patient's transfer to the floor was canceled yesterday. She looks about the same. I am told she had an episode of hypoxemia, which is not unusual when she is moving around. OBJECTIVE: VITAL SIGNS: Temperature 97.4, pulse 113, blood pressure 118/94, O2 saturation 98% on 3 L. HEENT: Unremarkable. NECK: No JVD. CHEST: With clear breath sounds. CARDIAC: S1, S2. Regular. ABDOMEN: Soft. EXTREMITIES: No edema. ASSESSMENT: COVID-19 pneumonia with hypoxemia. PLAN: Essentially at this time, I am just waiting for recovery. No further recommendations at this time. Job ID: [id number]
--- NOTE | 2019-11-10 10:14 | PDOC.HOSPP ---
- Subjective Encounter Date: 11/10/19 Encounter Time: 10:12 Subjective: Ms. Rojas was seen today in follow-up ofCOVID infection with respiratory failure. She feels a little better today. - Objective Vital Signs & Weight: Vital Signs (12 hours) Temp BP Pulse Ox 11/10/19 08:44 104/74 11/10/19 07:37 97.4 F L 11/10/19 07:20 97 11/10/19 03:37 97.2 F L 11/10/19 02:40 96 11/09/19 23:29 97.4 F L Weight Admit Weight 170 lb 3.2 oz Weight 170 lb 3.2 oz Most Recent Monitor Data Heart Rate from ECG 122 NIBP 118/94 NIBP BP-Mean 102 Respiration from ECG 25 SpO2 81 I&O: 11/09/19 11/10/19 11/11/19 06:59 06:59 06:59 Intake Total 960 1700 Output Total 1550 700 Balance -590 1000 Result Diagrams: 11/09/19 08:20 11/09/19 08:20 Additional Labs: Accuchecks 11/10/19 11/09/19 11/09/19 06:04 19:57 17:15 POC Glucose 130 H 202 H 259 H 11/09/19 11/08/19 11:00 06:25 POC Glucose 148 H 146 H Hospitalist ROS - Medication Medications: Active Medications Generic Name Dose Route Start Last Admin Trade Name Freq PRN Reason Stop Dose Admin Acetaminophen 650 mg 10/08/19 05:45 10/22/19 21:24 Tylenol PO 650 mg Q4H PRN Administration Headache/Fever/Mild Pain (1-3) Amlodipine Besylate 10 mg 10/15/19 09:00 11/10/19 08:44 Norvasc PO 10 mg DAILY KAYLIE Administration Apixaban 5 mg 10/31/19 21:00 11/10/19 08:44 Eliquis PO 5 mg BID KAYLIE Administration Ascorbic Acid 1,000 mg 10/14/19 09:00 11/10/19 08:43 Vitamin C PO 1,000 mg DAILY KAYLIE Administration Bisacodyl 10 mg 10/08/19 05:45 10/14/19 20:17 Dulcolax PO 10 mg DAILYPRN PRN Administration Constipation Diphenhydramine HCl 25 mg 10/21/19 16:19 10/26/19 20:53 Benadryl PO 25 mg HSPRN PRN Administration Itching & Insomnia Famotidine 20 mg 10/08/19 09:00 11/10/19 08:43 Pepcid PO 20 mg BID KAYLIE Administration Insulin Glargine 6 units/ 0.06 mls @ 0 mls/hr 11/03/19 21:00 11/10/19 08:43 Miscellaneous Medication SC 0.06 mls BID KAYLIE Administration Insulin Human Lispro 0 units 10/19/19 16:47 11/09/19 21:10 Humalog SC 6 unit .AGGRESSIVE SLIDING PRN Administration Aggressive Correctional Scale Iron/Minerals/Multivitamins 1 tab 10/09/19 09:00 11/10/19 08:43 Theragran M PO 1 tab DAILY KAYLIE Administration Latanoprost 1 drop 10/08/19 21:00 11/09/19 21:13 Xalatan 0.005% Ophth Soln EA EYE 1 drop HS KAYLIE Administration Metformin HCl 1,000 mg 10/19/19 08:00 11/10/19 08:44 Glucophage PO 1,000 mg BID-WM KAYLIE Administration Mometasone Furoate 200 mcg 10/12/19 18:30 11/10/19 08:08 Asmanex Hfa 100 Mcg INH 2 puff BID-RT KAYLIE Administration Prednisone 20 mg 11/09/19 09:00 11/10/19 08:43 Prednisone PO 20 mg BID KAYLIE Administration Simethicone 80 mg 10/21/19 12:42 10/21/19 16:15 Mylicon Drops 40 Mg/0.6ml Drop PO 80 mg QID PRN Administration Gas Pain Venlafaxine HCl 75 mg 10/08/19 21:00 11/10/19 08:43 Effexor PO 75 mg BID KAYLIE Administration Zinc Sulfate 220 mg 10/09/19 09:00 11/10/19 08:43 Zinc Sulfate PO 220 mg DAILY KAYLIE Administration - Exam Eye: PERRL, anicteric sclera Heart: RRR, no murmur, no gallops, no rubs, normal peripheral pulses Respiratory: rales (at both bases) Gastrointestinal: soft, non-tender, non-distended, normal bowel sounds, no palpable masses, no hepatomegaly Extremities: no cyanosis, no edema Hosp A/P (1) Acute respiratory failure with hypoxemia Code(s): J96.01 - ACUTE RESPIRATORY FAILURE WITH HYPOXIA Status: Acute (2) COVID-19 Code(s): U07.1 - COVID-19 Status: Acute (3) Diabetes mellitus type 2 in nonobese Code(s): E11.9 - TYPE 2 DIABETES MELLITUS WITHOUT COMPLICATIONS Status: Chronic (4) Hypertension Code(s): I10 - ESSENTIAL (PRIMARY) HYPERTENSION Status: Chronic (5) Anxiety Code(s): F41.9 - ANXIETY DISORDER, UNSPECIFIED Status: Chronic - Plan * Acute respiratory failure due to COVID pneumonia- she will desaturate, but she feels she is recovering faster * Will move to Medical today * Continue supplemental oxygen and PT/OT * Continue Incentive Spirometry * HTN- blood pressure is stable * DM- blood glucose is stable * Not quite ready for Rehab yet
[2019-11-10] MEDS: Latanoprost 0.005% Ophth Soln 2.5 ml Bottle EA EYE SCH (21:39)
[2019-11-11] MEDS: Mometasone 100 MCG/PUFF (1 INHALER) INH SCH ×2 (07:17→20:25)
[2019-11-11] MEDS: metFORMIN 500 MG TAB PO SCH ×2 (08:13→16:19)
[2019-11-11] MEDS: Famotidine 20 MG TAB PO SCH ×2 (08:13→20:58)
[2019-11-11] MEDS: Apixaban 5 MG TAB PO SCH ×2 (08:13→20:58)
[2019-11-11] MEDS: Multivitamin W/ Minerals 1 TAB PO SCH (08:13)
[2019-11-11] MEDS: predniSONE 20 MG TAB PO SCH ×2 (08:14→20:58)
[2019-11-11] MEDS: Ascorbic Acid 500 mg Chewable Tablet PO SCH (08:14)
[2019-11-11] MEDS: Amlodipine 10 MG TAB PO SCH (08:14)
[2019-11-11] MEDS: Insulin Glargine 6 UNITS in Pre-Filled Syringe 1 EACH SC SCH ×2 (08:15→21:02)
[2019-11-11] MEDS: Zinc Sulfate 220 MG CAP PO SCH (08:21)
--- NOTE | 2019-11-11 09:37 | PRG ---
DATE OF SERVICE: 11/11/2019 SUBJECTIVE: The patient is doing well. She was moved to the floor last night. OBJECTIVE: VITAL SIGNS: Temperature 97.4, pulse 101, respirations 15, O2 saturation in the low 90s on 3 L nasal cannula. HEENT: Unremarkable. NECK: No adenopathy or JVD. LUNGS: Clear. CARDIAC: S1 and S2. Regular. ABDOMEN: Soft. EXTREMITIES: No edema. ASSESSMENT: COVID-19 pneumonia with persistent hypoxemia. PLAN: Basically awaiting improvement in her oxygenation. I think she is going to need some intermediate step between here at home. She is continuing on prednisone and Eliquis. I think there is a good possibility she may be a lifelong oxygen at home. Job ID: [id number]
[2019-11-11] MEDS: HumaLOG 300 UNITS/3 ML VIAL SC PRN (16:19)
--- NOTE | 2019-11-11 18:12 | PDOC.HOSPP ---
- Subjective Encounter Date: 11/11/19 Encounter Time: 18:08 Subjective: Ms. Rojas was seen today in follow-up of COVID pneumonia. She notes some improvement in her fatigue, and dyspnea. No new complaints. - Objective Vital Signs & Weight: Vital Signs (12 hours) Temp Pulse Resp BP Pulse Ox 11/11/19 08:14 101 H 11/11/19 08:00 92 L 11/11/19 07:22 97.4 F L 101 H 15 121/72 88 L Weight Admit Weight 170 lb 3.2 oz Weight 170 lb 3.2 oz Most Recent Monitor Data Heart Rate from ECG 125 NIBP 123/72 NIBP BP-Mean 89 Respiration from ECG 19 SpO2 86 I&O: 11/10/19 11/11/19 11/12/19 06:59 06:59 06:59 Intake Total 1700 850 720 Output Total 700 350 Balance 1000 500 720 Result Diagrams: 11/09/19 08:20 11/09/19 08:20 Additional Labs: Accuchecks 11/11/19 11/11/19 11/11/19 16:07 11:22 06:04 POC Glucose 268 H 176 H 131 H 11/10/19 20:38 POC Glucose 112 H Hospitalist ROS - Medication Medications: Active Medications Generic Name Dose Route Start Last Admin Trade Name Freq PRN Reason Stop Dose Admin Acetaminophen 650 mg 10/08/19 05:45 10/22/19 21:24 Tylenol PO 650 mg Q4H PRN Administration Headache/Fever/Mild Pain (1-3) Amlodipine Besylate 10 mg 10/15/19 09:00 11/11/19 08:14 Norvasc PO 10 mg DAILY KAYLIE Administration Apixaban 5 mg 10/31/19 21:00 11/11/19 08:13 Eliquis PO 5 mg BID KAYLIE Administration Ascorbic Acid 1,000 mg 10/14/19 09:00 11/11/19 08:14 Vitamin C PO 1,000 mg DAILY KAYLIE Administration Bisacodyl 10 mg 10/08/19 05:45 10/14/19 20:17 Dulcolax PO 10 mg DAILYPRN PRN Administration Constipation Diphenhydramine HCl 25 mg 10/21/19 16:19 10/26/19 20:53 Benadryl PO 25 mg HSPRN PRN Administration Itching & Insomnia Famotidine 20 mg 10/08/19 09:00 11/11/19 08:13 Pepcid PO 20 mg BID KAYLIE Administration Insulin Glargine 6 units/ 0.06 mls @ 0 mls/hr 11/03/19 21:00 11/11/19 08:15 Miscellaneous Medication SC 0.06 mls BID KAYLIE Administration Insulin Human Lispro 0 units 10/19/19 16:47 11/11/19 16:19 Humalog SC 9 unit .AGGRESSIVE SLIDING PRN Administration Aggressive [employer]al Scale Iron/Minerals/Multivitamins 1 tab 10/09/19 09:00 11/11/19 08:13 Theragran M PO 1 tab DAILY KAYLIE Administration Latanoprost 1 drop 10/08/19 21:00 11/10/19 21:39 Xalatan 0.005% Ophth Soln EA EYE 1 drop HS KAYLIE Administration Metformin HCl 1,000 mg 10/19/19 08:00 11/11/19 16:19 Glucophage PO 1,000 mg BID-WM KAYLIE Administration Mometasone Furoate 200 mcg 10/12/19 18:30 11/11/19 07:17 Asmanex Hfa 100 Mcg INH 2 puff BID-RT KAYLIE Administration Prednisone 20 mg 11/09/19 09:00 11/11/19 08:14 Prednisone PO 20 mg BID KAYLIE Administration Simethicone 80 mg 10/21/19 12:42 10/21/19 16:15 Mylicon Drops 40 Mg/0.6ml Drop PO 80 mg QID PRN Administration Gas Pain Venlafaxine HCl 75 mg 10/08/19 21:00 11/11/19 08:13 Effexor PO 75 mg BID KAYLIE Administration Zinc Sulfate 220 mg 10/09/19 09:00 11/11/19 08:21 Zinc Sulfate PO 220 mg DAILY KAYLIE Administration - Exam Eye: PERRL, anicteric sclera Heart: RRR, no murmur, no gallops, no rubs, normal peripheral pulses Respiratory: rales (+ fine rales at both bases) Gastrointestinal: soft, non-tender, non-distended, normal bowel sounds, no palpable masses Extremities: no cyanosis, no edema Hosp A/P (1) Acute respiratory failure with hypoxemia Code(s): J96.01 - ACUTE RESPIRATORY FAILURE WITH HYPOXIA Status: Acute (2) COVID-19 Code(s): U07.1 - COVID-19 Status: Acute (3) Diabetes mellitus type 2 in nonobese Code(s): E11.9 - TYPE 2 DIABETES MELLITUS WITHOUT COMPLICATIONS Status: Chronic (4) Hypertension Code(s): I10 - ESSENTIAL (PRIMARY) HYPERTENSION Status: Chronic (5) Anxiety Code(s): F41.9 - ANXIETY DISORDER, UNSPECIFIED Status: Chronic - Plan * Acute respiratory failure due to COVID pneumonia- she is showing slow improvement * Continue supplemental oxygen and PT/OT * Continue Incentive Spirometry * HTN- blood pressure is stable * DM- blood glucose is stable
[2019-11-11] MEDS: Latanoprost 0.005% Ophth Soln 2.5 ml Bottle EA EYE SCH (21:01)
[2019-11-12] MEDS: Mometasone 100 MCG/PUFF (1 INHALER) INH SCH ×2 (07:26→18:16)
[2019-11-12] MEDS: Amlodipine 10 MG TAB PO SCH (08:42)
[2019-11-12] MEDS: Ascorbic Acid 500 mg Chewable Tablet PO SCH (08:42)
[2019-11-12] MEDS: Famotidine 20 MG TAB PO SCH ×2 (08:42→22:34)
[2019-11-12] MEDS: Multivitamin W/ Minerals 1 TAB PO SCH (08:43)
[2019-11-12] MEDS: Apixaban 5 MG TAB PO SCH ×2 (08:43→22:34)
[2019-11-12] MEDS: metFORMIN 500 MG TAB PO SCH ×2 (08:43→17:12)
[2019-11-12] MEDS: Insulin Glargine 6 UNITS in Pre-Filled Syringe 1 EACH SC SCH ×2 (08:43→22:35)
[2019-11-12] MEDS: predniSONE 20 MG TAB PO SCH ×2 (08:43→22:34)
[2019-11-12] MEDS: Zinc Sulfate 220 MG CAP PO SCH (08:44)
--- NOTE | 2019-11-12 09:27 | PRG ---
DATE OF SERVICE: 11/12/2019 OBJECTIVE: VITAL SIGNS: Temperature 97.8, pulse 108, O2 saturation running in the mid 90s on 3 L, and blood pressure 125/76. HEENT: Unremarkable. NECK: No JVD. CHEST: Clear. CARDIAC: S1 and S2. Regular. ABDOMEN: Soft. EXTREMITIES: No edema. ASSESSMENT: COVID-19 pneumonia with improving hypoxemia. PLAN: Probably ready for rehab by tomorrow. Her prednisone taper should be extremely slow and I would keep her on full dose anticoagulation for the next 2 months. Job ID: [id number]
--- NOTE | 2019-11-12 14:34 | PRG ---
DATE OF SERVICE: 11/12/2019 The patient doing reasonably well, started to get up yesterday. On exam, DICTATION ENDS HERE Job ID: [id number]
--- NOTE | 2019-11-12 14:59 | PDOC.HOSPP ---
- Subjective Encounter Date: 11/12/19 Encounter Time: 14:57 Subjective: Ms. Rojas was seen today in follow-up of COVID infection and deconditioning. She is beginning to turn the corner. She says she walked to the bathroom and back, and has had less trouble with this. - Objective Vital Signs & Weight: Vital Signs (12 hours) Temp Pulse Resp BP Pulse Ox 11/12/19 08:42 108 H 11/12/19 08:00 90 L 11/12/19 07:21 97.8 F 108 H 19 125/76 90 L Weight Admit Weight 170 lb 3.2 oz Weight 170 lb 3.2 oz Most Recent Monitor Data Heart Rate from ECG 125 NIBP 123/72 NIBP BP-Mean 89 Respiration from ECG 19 SpO2 86 I&O: 11/11/19 11/12/19 11/13/19 06:59 06:59 06:59 Intake Total 850 720 480 Output Total 350 Balance 500 720 480 Result Diagrams: 11/09/19 08:20 11/09/19 08:20 Additional Labs: Accuchecks 11/12/19 11/12/19 11/11/19 11:45 04:16 20:11 POC Glucose 188 H 137 H 108 11/11/19 16:07 POC Glucose 268 H Hospitalist ROS - Medication Medications: Active Medications Generic Name Dose Route Start Last Admin Trade Name Freq PRN Reason Stop Dose Admin Acetaminophen 650 mg 10/08/19 05:45 10/22/19 21:24 Tylenol PO 650 mg Q4H PRN Administration Headache/Fever/Mild Pain (1-3) Amlodipine Besylate 10 mg 10/15/19 09:00 11/12/19 08:42 Norvasc PO 10 mg DAILY KAYLIE Administration Apixaban 5 mg 10/31/19 21:00 11/12/19 08:43 Eliquis PO 5 mg BID KAYLIE Administration Ascorbic Acid 1,000 mg 10/14/19 09:00 11/12/19 08:42 Vitamin C PO 1,000 mg DAILY KAYLIE Administration Bisacodyl 10 mg 10/08/19 05:45 10/14/19 20:17 Dulcolax PO 10 mg DAILYPRN PRN Administration Constipation Diphenhydramine HCl 25 mg 10/21/19 16:19 10/26/19 20:53 Benadryl PO 25 mg HSPRN PRN Administration Itching & Insomnia Famotidine 20 mg 10/08/19 09:00 11/12/19 08:42 Pepcid PO 20 mg BID KAYLIE Administration Insulin Glargine 6 units/ 0.06 mls @ 0 mls/hr 11/03/19 21:00 11/12/19 08:43 Miscellaneous Medication SC 0.06 mls BID KAYLIE Administration Insulin Human Lispro 0 units 10/19/19 16:47 11/11/19 16:19 Humalog SC 9 unit .AGGRESSIVE SLIDING PRN Administration Aggressive Correctional Scale Iron/Minerals/Multivitamins 1 tab 10/09/19 09:00 11/12/19 08:43 Theragran M PO 1 tab DAILY KAYLIE Administration Latanoprost 1 drop 10/08/19 21:00 11/11/19 21:01 Xalatan 0.005% Ophth Soln EA EYE 1 drop HS KAYLIE Administration Metformin HCl 1,000 mg 10/19/19 08:00 11/12/19 08:43 Glucophage PO 1,000 mg BID-WM KAYLIE Administration Mometasone Furoate 200 mcg 10/12/19 18:30 11/12/19 07:26 Asmanex Hfa 100 Mcg INH 2 puff BID-RT KAYLIE Administration Prednisone 20 mg 11/09/19 09:00 11/12/19 08:43 Prednisone PO 20 mg BID KAYLIE Administration Simethicone 80 mg 10/21/19 12:42 10/21/19 16:15 Mylicon Drops 40 Mg/0.6ml Drop PO 80 mg QID PRN Administration Gas Pain Venlafaxine HCl 75 mg 10/08/19 21:00 11/12/19 08:43 Effexor PO 75 mg BID KAYLIE Administration Zinc Sulfate 220 mg 10/09/19 09:00 11/12/19 08:44 Zinc Sulfate PO 220 mg DAILY KAYLIE Administration - Exam Eye: PERRL, anicteric sclera Heart: RRR, no murmur, no gallops, no rubs, normal peripheral pulses Respiratory: rales (+ scattered rales, no rhonchi) Gastrointestinal: soft, non-tender, non-distended, normal bowel sounds Extremities: no cyanosis, no edema Hosp A/P (1) Acute respiratory failure with hypoxemia Code(s): J96.01 - ACUTE RESPIRATORY FAILURE WITH HYPOXIA Status: Acute (2) COVID-19 Code(s): U07.1 - COVID-19 Status: Acute (3) Diabetes mellitus type 2 in nonobese Code(s): E11.9 - TYPE 2 DIABETES MELLITUS WITHOUT COMPLICATIONS Status: Chronic (4) Hypertension Code(s): I10 - ESSENTIAL (PRIMARY) HYPERTENSION Status: Chronic (5) Anxiety Code(s): F41.9 - ANXIETY DISORDER, UNSPECIFIED Status: Chronic - Plan * Acute respiratory failure due to COVID pneumonia- continues incremental improvement * Continue supplemental oxygen and PT/OT * Continue Incentive Spirometry * HTN- blood pressure is stable * DM- blood glucose is stable
[2019-11-12] MEDS: Latanoprost 0.005% Ophth Soln 2.5 ml Bottle EA EYE SCH (23:02)
[2019-11-13] MEDS: Mometasone 100 MCG/PUFF (1 INHALER) INH SCH ×2 (06:34→21:13)
--- NOTE | 2019-11-13 08:05 | PRG ---
DATE OF SERVICE: 11/13/2019 SUBJECTIVE: She is doing fairly well, had no acute complaints. OBJECTIVE: VITAL SIGNS: Temperature 97.9, pulse 108, respirations 22, O2 saturation 93% on 3 L, and blood pressure 137/76. HEENT: Unremarkable. NECK: No JVD. LUNGS: Inspiratory crackles. CARDIAC: S1 and S2, regular. ABDOMEN: Soft. EXTREMITIES: No edema. ASSESSMENT: 1. COVID-19 pneumonia. 2. Hypoxemia. PLAN: The patient should be ready to go to rehab. She still will desaturate with any exercise or oxygen will need to be increased when she exercises. She needs to continue on full dose anticoagulation for the next 2 months and her steroids should be tapered extremely slowly. Job ID: [id number]
[2019-11-13 08:06] LABS: #Eosinphils 0.1 thou/uL (0.0-0.7); #Monocytes 0.5 thou/uL (0.11-0.59); %Basophils 0.4 % (0.0-1.0); %Eosinophils 0.7 % (0.0-10.0); %Lymphocytes 9.6 % (21.0-51.0); %Monocytes 5.1 % (0.0-10.0); %Neutrophils 84.3 % (42.0-75.0); Hemoglobin 16.8 g/dL (12.0-16.0); Mean Corpuscular HGB CONC 32.6 g/dL (32.0-36.0); Mean Corpuscular Hemoglobin 31.1 pg (27.0-31.0); Mean Corpuscular Volume 95.5 fL (78.0-98.0); Mean Platelet Volume 6.7 fL (7.4-10.4); Platelet Count 258 thou/uL (130-400); White Blood Cell (WBC) Count 10.7 thou/uL (4.8-10.8)
[2019-11-13] MEDS: Famotidine 20 MG TAB PO SCH ×2 (08:08→21:40)
[2019-11-13] MEDS: Apixaban 5 MG TAB PO SCH ×2 (08:09→21:40)
[2019-11-13] MEDS: Multivitamin W/ Minerals 1 TAB PO SCH (08:09)
[2019-11-13] MEDS: predniSONE 20 MG TAB PO SCH ×2 (08:09→21:41)
[2019-11-13] MEDS: Amlodipine 10 MG TAB PO SCH (08:09)
[2019-11-13] MEDS: metFORMIN 500 MG TAB PO SCH ×2 (08:09→17:03)
[2019-11-13] MEDS: Zinc Sulfate 220 MG CAP PO SCH (08:09)
[2019-11-13] MEDS: Ascorbic Acid 500 mg Chewable Tablet PO SCH (08:09)
[2019-11-13 08:29] LABS: Anion Gap 15 mmol/L (10-20); BUN (Urea Nitrogen) 20 mg/dL (9.8-20.1); Calc. Creatinine Clearance 90 mL/min (70-130); Calcium 8.7 mg/dL (7.8-10.44); Carbon Dioxide 28 mmol/L (23-31); Chloride 100 mmol/L (98-107); Estimated GFR-MDRD 85; Glucose 152 mg/dL (83-110); Potassium 4.6 mmol/L (3.5-5.1); Sodium 138 mmol/L (136-145)
[2019-11-13] MEDS: Insulin Glargine 6 UNITS in Pre-Filled Syringe 1 EACH SC SCH ×2 (08:38→22:09)
--- NOTE | 2019-11-13 12:59 | PDOC.HOSPP ---
- Subjective Encounter Date: 11/13/19 Encounter Time: 12:57 Subjective: Ms. Rojas was seen today in follow-up of COVID pneumonia. She believes she is ready for Rehab today. She is feeling much better - Objective Vital Signs & Weight: Vital Signs (12 hours) Temp Pulse Resp BP Pulse Ox 11/13/19 08:31 97.6 F 106 H 20 120/75 88 L 11/13/19 08:09 108 H 11/13/19 08:00 88 L Weight Admit Weight 170 lb 3.2 oz Weight 170 lb 3.2 oz Most Recent Monitor Data Heart Rate from ECG 125 NIBP 123/72 NIBP BP-Mean 89 Respiration from ECG 19 SpO2 86 I&O: 11/12/19 11/13/19 11/14/19 06:59 06:59 06:59 Intake Total 720 480 240 Balance 720 480 240 Result Diagrams: 11/13/19 07:49 11/13/19 07:49 Additional Labs: Accuchecks 11/13/19 11/13/19 11/12/19 11:27 04:54 20:05 POC Glucose 162 H 161 H 156 H 11/12/19 16:44 POC Glucose 251 H Hospitalist ROS - Medication Medications: Active Medications Generic Name Dose Route Start Last Admin Trade Name Freq PRN Reason Stop Dose Admin Acetaminophen 650 mg 10/08/19 05:45 10/22/19 21:24 Tylenol PO 650 mg Q4H PRN Administration Headache/Fever/Mild Pain (1-3) Amlodipine Besylate 10 mg 10/15/19 09:00 11/13/19 08:09 Norvasc PO 10 mg DAILY KAYLIE Administration Apixaban 5 mg 10/31/19 21:00 11/13/19 08:09 Eliquis PO 5 mg BID KAYLIE Administration Ascorbic Acid 1,000 mg 10/14/19 09:00 11/13/19 08:09 Vitamin C PO 1,000 mg DAILY KAYLIE Administration Bisacodyl 10 mg 10/08/19 05:45 10/14/19 20:17 Dulcolax PO 10 mg DAILYPRN PRN Administration Constipation Diphenhydramine HCl 25 mg 10/21/19 16:19 10/26/19 20:53 Benadryl PO 25 mg HSPRN PRN Administration Itching & Insomnia Famotidine 20 mg 10/08/19 09:00 11/13/19 08:08 Pepcid PO 20 mg BID KAYLIE Administration Insulin Glargine 6 units/ 0.06 mls @ 0 mls/hr 11/03/19 21:00 11/13/19 08:38 Miscellaneous Medication SC 0.06 mls BID KAYLIE Administration Insulin Human Lispro 0 units 10/19/19 16:47 11/11/19 16:19 Humalog SC 9 unit .AGGRESSIVE SLIDING PRN Administration Aggressive Correctional Scale Iron/Minerals/Multivitamins 1 tab 10/09/19 09:00 11/13/19 08:09 Theragran M PO 1 tab DAILY KAYLIE Administration Latanoprost 1 drop 10/08/19 21:00 11/12/19 23:02 Xalatan 0.005% Ophth Soln EA EYE 1 drop HS KAYLIE Administration Metformin HCl 1,000 mg 10/19/19 08:00 11/13/19 08:09 Glucophage PO 1,000 mg BID-WM KAYLIE Administration Mometasone Furoate 200 mcg 10/12/19 18:30 11/13/19 06:34 Asmanex Hfa 100 Mcg INH 2 puff BID-RT KAYLIE Administration Prednisone 20 mg 11/09/19 09:00 11/13/19 08:09 Prednisone PO 20 mg BID KAYLIE Administration Simethicone 80 mg 10/21/19 12:42 10/21/19 16:15 Mylicon Drops 40 Mg/0.6ml Drop PO 80 mg QID PRN Administration Gas Pain Venlafaxine HCl 75 mg 10/08/19 21:00 11/13/19 08:08 Effexor PO 75 mg BID KAYLIE Administration Zinc Sulfate 220 mg 10/09/19 09:00 11/13/19 08:09 Zinc Sulfate PO 220 mg DAILY KAYLIE Administration - Exam Eye: PERRL, anicteric sclera Heart: RRR, no murmur, no gallops, no rubs, normal peripheral pulses Respiratory: CTAB (+ rales at the base) Gastrointestinal: soft, non-tender, non-distended, normal bowel sounds, no palpable masses, no hepatomegaly Extremities: no cyanosis, 1+ LE edema Hosp A/P (1) Acute respiratory failure with hypoxemia Code(s): J96.01 - ACUTE RESPIRATORY FAILURE WITH HYPOXIA Status: Acute (2) COVID-19 Code(s): U07.1 - COVID-19 Status: Acute (3) Diabetes mellitus type 2 in nonobese Code(s): E11.9 - TYPE 2 DIABETES MELLITUS WITHOUT COMPLICATIONS Status: Chronic (4) Hypertension Code(s): I10 - ESSENTIAL (PRIMARY) HYPERTENSION Status: Chronic (5) Anxiety Code(s): F41.9 - ANXIETY DISORDER, UNSPECIFIED Status: Chronic - Plan * Acute respiratory failure due to COVID pneumonia- continues incremental improvement * Continue supplemental oxygen and PT/OT * Continue Incentive Spirometry * HTN- blood pressure is stable * DM- blood glucose is stable * Transfer to Rehab when a bed is available
[2019-11-13] MEDS: Latanoprost 0.005% Ophth Soln 2.5 ml Bottle EA EYE SCH (21:41)
[2019-11-14] MEDS: Mometasone 100 MCG/PUFF (1 INHALER) INH SCH (07:17)
[2019-11-14] MEDS: metFORMIN 500 MG TAB PO SCH ×2 (09:37→17:19)
[2019-11-14] MEDS: predniSONE 20 MG TAB PO SCH (09:37)
[2019-11-14] MEDS: Famotidine 20 MG TAB PO SCH (09:37)
[2019-11-14] MEDS: Ascorbic Acid 500 mg Chewable Tablet PO SCH (09:37)
[2019-11-14] MEDS: Amlodipine 10 MG TAB PO SCH (09:38)
[2019-11-14] MEDS: Zinc Sulfate 220 MG CAP PO SCH (09:38)
[2019-11-14] MEDS: Apixaban 5 MG TAB PO SCH (09:38)
[2019-11-14] MEDS: Multivitamin W/ Minerals 1 TAB PO SCH (09:38)
[2019-11-14] MEDS: Insulin Glargine 6 UNITS in Pre-Filled Syringe 1 EACH SC SCH (09:39)
[2019-11-14 15:50] VITALS: BP 118/74; TEMP 97.9
--- NOTE | 2019-11-15 18:35 | DIS ---
DATE OF ADMISSION: 10/08/2019 DATE OF DISCHARGE: 11/14/2019 DISCHARGE DIAGNOSES: 1. Acute respiratory failure with hypoxia. 2. COVID-19 infection. 3. Diabetes mellitus type 2. 4. Hypertension. 5. Anxiety. DISCHARGE MEDICATIONS: 1. Amlodipine/benazepril 5 mg/20 mg one capsule orally daily. 2. Apixaban 5 mg orally twice daily for a year. 3. Ascorbic acid 1000 mg orally daily. 4. Budesonide 0.5 mg nebulized daily. 5. Famotidine 20 mg orally twice daily. 6. Latanoprost 1 eyedrop to each eye nightly. 7. Metformin 1000 mg orally daily with meals. 8. Metoprolol succinate 25 mg orally daily. 9. Mometasone 100 mcg/puff. The patient takes 200 mcg inhaled twice daily. 10. Prednisone 20 mg. The patient will take 1 tablet twice daily for 15 days, then one tablet once daily for 15 days, then 1 tablet every other day for 5 days. Slow taper was recommended by Pulmonology. 11. Effexor 75 mg orally twice daily. 12. Zinc 220 mg orally daily. HISTORY OF PRESENT ILLNESS AND HOSPITAL COURSE: The patient is a 74-year-old female with history of diabetes mellitus, hypertension, and hyperlipidemia, who presented to the hospital with shortness of breath and hypoxia. Her COVID-19 test was positive. The patient was admitted to the hospital and managed with supplemental oxygen, which she initially required high level of oxygen and then was tapered off gradually. The patient also received corticosteroids and anticoagulation. Her management was supportive and she showed gradual improvement until her symptoms resolve. During hospital stay, the patient became deconditioned and will require some period of outpatient therapy with rehab facility. At this time, she remains hypoxic with rest and ambulation and will require oxygen. The patient requires about 2 L at rest and requires up to 5 L with ambulation. Job ID: [id number]
== END 2019-11-14 17:22 | DRG 177 ==
LOC: ERS 23:45 → IMCU/EMU 10-08 04:34 → T4-B 11-10 17:48
PROVIDERS: ADMIT Internal Medicine; ATTEND Internal Medicine
PROC: 8E0ZXY6 Isolation (ICD-10-PCS; 2019-10-08)
PROC: 5A09457 Assistance with Respiratory Ventilation, 24-96 Consecutive Hours, Continuous Positive Airway Pressure (ICD-10-PCS; 2019-10-11)
PROC: XW13325 Transfusion of Convalescent Plasma (Nonautologous) into Peripheral Vein, Percutaneous Approach, New Technology Group 5 (ICD-10-PCS; principal; 2019-10-13)
DX: U07.1 COVID-19 (principal); J96.01 Acute respiratory failure with hypoxia; J12.89 Other viral pneumonia; I10 Essential (primary) hypertension; F41.9 Anxiety disorder, unspecified; E78.5 Hyperlipidemia, unspecified; H91.90 Unspecified hearing loss, unspecified ear; E66.9 Obesity, unspecified; E11.65 Type 2 diabetes mellitus with hyperglycemia; E87.5 Hyperkalemia; R14.0 Abdominal distension (gaseous); D72.829 Elevated white blood cell count, unspecified; T38.0X5A Adverse effect of glucocorticoids and synthetic analogues, initial encounter; Z68.30 Body mass index [BMI] 30.0-30.9, adult; Z79.899 Other long term (current) drug therapy; Z79.51 Long term (current) use of inhaled steroids; Z28.21 Immunization not carried out because of patient refusal; Z79.52 Long term (current) use of systemic steroids; Z79.84 Long term (current) use of oral hypoglycemic drugs
CPT/HCPCS: 36415; 36416; 36430; 71045; 80048; 82728; 82805; 83036; 83735; 84100; 84145; 85025; 86140; 86850; 86900; 86901; 87635; 94640; 94660; 99285; J0456; J0696; J1100; J1650; J1815; J1940; J2270; J2405; J2920; J2930; J3490; J7050; J7512; J7626; Q0163; U0003